=== PATIENT | female | born 1955 | race Caucasian/White ===

== ENCOUNTER 2019-02-26 19:09 | Emergency (ER) | payer OTHER, SELFPAY ==
[2019-02-26 19:19] VITALS: BP 156/67; PULSE 86; RESP 18; O2SAT 98; BMI 40.9
[2019-02-26 19:37] VITALS: BP 156/67; PULSE 86; RESP 18; TEMP 36.3; O2SAT 98; BMI 40.9
--- NOTE | 2019-02-26 19:41 | HMH.EDUTC ---
[facility] [place] Clinical Impression: Wrist pain Qualifiers: Laterality: right Qualified Code(s): M25.531 - Pain in right wrist Disposition: Home, Self-Care Condition on Discharge: Good Instructions: DI for Wrist Pain Additional Instructions: RICE--Rest the extremity, Apply Ice as tolerated for 15 minutes three or four times per day, Elevate the extremity while you are resting Take the steroids as directed. Follow up with your regular doctor. GO TO THE ER FOR ANY WORSENING SYMPTOMS Prescriptions: predniSONE [Deltasone 20mg tablet] 20 mg PO BID 4 Days #8 tab Referrals: Lucretia Bee [Primary Care Provider] - Time of Disposition: 20:16 Medical Decision Making - Medical Records Medical records reviewed: Yes: I reviewed the patient's medical records. - Lc Inquiry Pt receiving controlled substance: No Lc was queried for this patient: No Vital Signs: 02/26/19 19:19 02/26/19 19:37 02/26/19 20:20 Temperature 97.3 F L 97.3 F L Temperature Source Oral Oral Pulse Rate 86 Pulse Rate [Left Brachial] 86 86 Respiratory Rate 18 18 18 Blood Pressure 156/67 H Blood Pressure [Left Arm] 156/67 H 156/67 H Blood Pressure Mean [Left Arm] 96 96 Blood Pressure Source Automatic Cuff Blood Pressure Source [Left Arm] Automatic Cuff Automatic Cuff Blood Pressure Position Sitting Blood Pressure Position [Left Arm] Sitting Sitting 02 Sat by Pulse Oximetry 98 98 Oxygen Delivery Method Room Air Room Air Room Air [facility] [place] - General Stated complaint: R hand pain Time Seen by Provider: 02/26/19 19:25 Mode of Arrival: Family Vehicle Source of Information: Patient Limitations: No Limitations Description of Symptoms (Recalled from Triage Doc. by RN): C/O RIGHT HAND PAIN AND SWELLING WITH NO KNOWN INJURY HEENT Symptoms (Recalled from RN notes): No Resp Symptoms (Recalled from RN notes): No Skin Symptoms (Recalled from RN notes): No MS Symptoms (Recalled from RN notes): Yes Functional Status (Recalled from RN notes): N/A - Related Data Home Medications Medication Instructions Recorded Confirmed Levocetirizine Dihydrochloride 5 mg PO DAILY 02/26/19 02/26/19 Montelukast Sodium [Singulair 10mg 10 mg PO PM 02/26/19 02/26/19 tablet] Omeprazole [Omeprazole 40mg 40 mg PO DAILY 02/26/19 02/26/19 Capsule] clonazePAM [Clonazepam] 0.5 mg PO DAILY 02/26/19 02/26/19 hydroCHLOROthiazide [HCTZ 25mg 25 mg PO DAILY 02/26/19 02/26/19 tab] Previous Rx's Medication Instructions Recorded predniSONE [Deltasone 20mg 20 mg PO BID 4 Days #8 tab 02/26/19 tablet] Allergies Allergy/AdvReac Type Severity Reaction Status Date / Time amoxicillin [From TRIMOX] Allergy Unknown Verified 02/26/19 19:41 Penicillins [PENICILLINS] Allergy Unknown Verified 02/26/19 19:41 - Worker's Comp Is this a Worker's Comp case?: No [facility] History - Hepatitis A Screen Drug use history?: No High risk sexual behaviors?: No History of sexually transmitted infection?: No Currently employed?: No Childcare worker?: No Do you have indoor plumbing?: Yes Do you have electricity?: Yes Attestation statement:: This patient has been screened for Hepatitis A risk factors. I have reviewed the patient's past medical history: Yes Laterality Cases: Bilateral: Tonsillectomy - Social History Alcohol Intake: never Occupational Status: other - Psychiatric History Expresses thoughts of harming self/others: None Suicide Plan Description: No Plan ROS Obtained: Yes All systems reviewed & no additional complaints - Constitutional Constitutional: Denies chills, Denies fever(s) - ENT Ears, Nose, Mouth, and Throat: Reports as per HPI - Cardiovascular Cardiovascular: Denies chest pain - Respiratory Respiratory: No chest congestion, No cough - Integumentary/Breasts Skin/Breast: Reports as per HPI Physical Exam - General General appearance: alert, in no apparent distress - Head Head
--- NOTE | 2019-02-26 19:44 | XR_ITS ---
XR wrist RT 2V HISTORY ITS.REASON: wrist pain and swelling. ORDERING PHYSICIAN: Eddi Bryant APRN PATIENT AGE: 63 years Comparison: None FINDINGS: No fracture or dislocation. No lytic or blastic change. There is normal mineralization.. The joint spaces are well-preserved. No significant degenerative/arthritic changes. No erosive changes evident.. Minimal chondrocalcinosis of the triangular fibrocartilage noted IMPRESSION: No acute finding
--- NOTE | 2019-02-26 19:45 | ED_ITS ---
[facility] – [place] Clinical Impression: Wrist pain Qualifiers: Laterality: right Qualified Code(s): M25.531 - Pain in right wrist Disposition: Home, Self-Care Condition on Discharge: Good Instructions: DI for Wrist Pain Additional Instructions: RICE--Rest the extremity, Apply Ice as tolerated for 15 minutes three or four times per day, Elevate the extremity while you are resting Take the steroids as directed. Follow up with your regular doctor. GO TO THE ER FOR ANY WORSENING SYMPTOMS Prescriptions: predniSONE [Deltasone 20mg tablet] 20 mg PO BID 4 Days #8 tab Referrals: Lucretia Bee [Primary Care Provider] - Time of Disposition: 20:16 Medical Decision Making - Medical Records Medical records reviewed: Yes: I reviewed the patient's medical records. - Lc Inquiry Pt receiving controlled substance: No Lc was queried for this patient: No Vital Signs: 02/26/19 19:19 02/26/19 19:37 02/26/19 20:20 Temperature 97.3 F L 97.3 F L Temperature Source Oral Oral Pulse Rate 86 Pulse Rate [Left Brachial] 86 86 Respiratory Rate 18 18 18 Blood Pressure 156/67 H Blood Pressure [Left Arm] 156/67 H 156/67 H Blood Pressure Mean [Left Arm] 96 96 Blood Pressure Source Automatic Cuff Blood Pressure Source [Left Arm] Automatic Cuff Automatic Cuff Blood Pressure Position Sitting Blood Pressure Position [Left Arm] Sitting Sitting 02 Sat by Pulse Oximetry 98 98 Oxygen Delivery Method Room Air Room Air Room Air [facility] [place] HPI - General Stated complaint: R hand pain Time Seen by Provider: 02/26/19 19:25 Mode of Arrival: Family Vehicle Source of Information: Patient Limitations: No Limitations Description of Symptoms (Recalled from Triage Doc. by RN): C/O RIGHT HAND PAIN AND SWELLING WITH NO KNOWN INJURY HEENT Symptoms (Recalled from RN notes): No Resp Symptoms (Recalled from RN notes): No Skin Symptoms (Recalled from RN notes): No MS Symptoms (Recalled from RN notes): Yes Functional Status (Recalled from RN notes): N/A - Related Data Home Medications Medication Instructions Recorded Confirmed Levocetirizine Dihydrochloride 5 mg PO DAILY 02/26/19 02/26/19 Montelukast Sodium [Singulair 10mg 10 mg PO PM 02/26/19 02/26/19 tablet] Omeprazole [Omeprazole 40mg 40 mg PO DAILY 02/26/19 02/26/19 Capsule] clonazePAM [Clonazepam] 0.5 mg PO DAILY 02/26/19 02/26/19 hydroCHLOROthiazide [HCTZ 25mg 25 mg PO DAILY 02/26/19 02/26/19 tab] Previous Rx's Medication Instructions Recorded predniSONE [Deltasone 20mg 20 mg PO BID 4 Days #8 tab 02/26/19 tablet] Allergies Allergy/AdvReac Type Severity Reaction Status Date / Time amoxicillin [From TRIMOX] Allergy Unknown Verified 02/26/19 19:41 Penicillins [PENICILLINS] Allergy Unknown Verified 02/26/19 19:41 - Worker's Comp Is this a Worker's Comp case?: No [facility] History - Hepatitis A Screen Drug use history?: No High risk sexual behaviors?: No History of sexually transmitted infection?: No Currently employed?: No Childcare worker?: No Do you have indoor plumbing?: Yes Do you have electricit
[2019-02-26 20:20] VITALS: BP 156/67; PULSE 86; RESP 18; TEMP 36.3; O2SAT 98
== END 2019-02-26 20:22 | disposition home or self-care (01) ==
PROVIDERS: Emergency Provider Nurse Practitioner Family; PCP Family Medicine Addiction Medicine
DX: M25.531 Pain in right wrist (principal); Z88.0 Allergy status to penicillin
CPT/HCPCS: 73100; 99201

== ENCOUNTER → 2021-08-20 11:55 | Outpatient (CLI) | payer MEDICARE, SELFPAY | PROVIDERS: Visit Provider Ophthalmology | DX: Z01.812 Encounter for preprocedural laboratory examination (principal); Z11.52 Encounter for screening for COVID-19 | CPT/HCPCS: C9803; U0003; U0005 ==

== ENCOUNTER 2021-08-21 08:51 | Day surgery (SDC) | payer MEDICARE, SELFPAY ==
[2021-08-20 11:19] VITALS: BMI 45.3
[2021-08-21 09:15] VITALS: BP 136/65; PULSE 69; RESP 18; TEMP 36.6; O2SAT 98
[2021-08-21 10:42] VITALS: BP 132/68; PULSE 63; RESP 18; O2SAT 99
[2021-08-21 10:47] VITALS: BP 135/74; PULSE 61; RESP 18; O2SAT 100
[2021-08-21 10:52] VITALS: BP 143/79; PULSE 62; RESP 18; O2SAT 100
[2021-08-21 10:57] VITALS: BP 141/75; PULSE 64; RESP 18; O2SAT 100
[2021-08-21 11:10] VITALS: BP 153/75; PULSE 63; RESP 18; TEMP 36.1; O2SAT 98
== END 2021-08-21 11:10 | disposition home or self-care (01) ==
LOC: OR 08:53
PROVIDERS: PCP Family Medicine; Visit Provider Ophthalmology
DX: H25.813 Combined forms of age-related cataract, bilateral (principal); H53.149 Visual discomfort, unspecified; H02.831 Dermatochalasis of right upper eyelid; H02.834 Dermatochalasis of left upper eyelid; M19.90 Unspecified osteoarthritis, unspecified site; K21.9 Gastro-esophageal reflux disease without esophagitis; Z87.891 Personal history of nicotine dependence; Z88.0 Allergy status to penicillin; Z88.1 Allergy status to other antibiotic agents
CPT/HCPCS: 66984; V2632

== ENCOUNTER → 2021-09-03 11:02 | Outpatient (CLI) | payer MEDICARE, SELFPAY | PROVIDERS: Visit Provider Ophthalmology | DX: Z01.812 Encounter for preprocedural laboratory examination (principal); Z11.52 Encounter for screening for COVID-19 | CPT/HCPCS: C9803; U0003; U0005 ==

== ENCOUNTER 2021-09-04 09:43 | Day surgery (SDC) | payer MEDICARE, SELFPAY ==
[2021-08-31 14:27] VITALS: BMI 44.1
[2021-09-04 11:10] VITALS: BP 147/79; PULSE 66; RESP 18; TEMP 36.3; O2SAT 97
[2021-09-04 12:40] VITALS: BP 134/71; PULSE 57; RESP 16; O2SAT 98
[2021-09-04 12:45] VITALS: BP 142/71; PULSE 56; RESP 16; O2SAT 100
[2021-09-04 12:50] VITALS: BP 140/74; PULSE 55; RESP 16; O2SAT 99
[2021-09-04 12:53] VITALS: BP 137/73; PULSE 58; RESP 16; O2SAT 99
[2021-09-04 12:55] VITALS: BP 151/96; PULSE 66; RESP 16; TEMP 36.7; O2SAT 97
== END 2021-09-04 13:05 | disposition home or self-care (01) ==
LOC: OR 09:45
PROVIDERS: PCP Family Medicine; Visit Provider Ophthalmology
DX: H25.813 Combined forms of age-related cataract, bilateral (principal); H53.149 Visual discomfort, unspecified; H02.831 Dermatochalasis of right upper eyelid; H02.834 Dermatochalasis of left upper eyelid; E78.5 Hyperlipidemia, unspecified; Z88.0 Allergy status to penicillin; Z88.1 Allergy status to other antibiotic agents; Z79.82 Long term (current) use of aspirin; Z79.899 Other long term (current) drug therapy
CPT/HCPCS: 66984; V2632

== ENCOUNTER 2021-09-10 17:49 | Emergency (ER) | payer MEDICARE, SELFPAY ==
--- NOTE | 2021-09-10 18:20 | XR_ITS ---
PROCEDURE INFORMATION: Exam: XR Chest Exam date and time: 09/10/2021 6:20 PM Age: 65 years old Clinical indication: Chest wall pain; Patient HX: Right sided posterior back pain TECHNIQUE: Imaging protocol: XR of the chest. Views: 2 views. COMPARISON: CR CXR CHEST(2 VIEWS-NOT PORTABLE) 10/22/2016 11:16 AM FINDINGS: Lungs: Faint nodular opacity projects over the mid right lung measuring 1.8 cm. No consolidation. Pleural spaces: Unremarkable. No pleural effusion. No pneumothorax. Heart/Mediastinum: Unremarkable. No cardiomegaly. Bones/joints: Unremarkable. IMPRESSION: Faint right lung nodular opacity. Recommend further evaluation with chest CT.
[2021-09-10 18:34] VITALS: BP 158/86; PULSE 95; RESP 18; TEMP 37.2; O2SAT 96; BMI 44.4
--- NOTE | 2021-09-10 19:11 | HMH.EDUTC ---
[facility] [place] Clinical Impression: Pain aggravated by coughing and deep breathing Disposition: Home, Self-Care Condition on Discharge: Good Instructions: DI for Shoulder Pain, DI for Muscle Spasm Additional Instructions: You need to call your Family Doctor tomorrow and make appointment the Radiologist that viewed your Xray and recommended further evaluation and a CT of your chest Your Family Doctor can request the records from your visit today Continue taking previously prescribed medications for pain Straight to ER if any life threatening symptoms Referrals: Marcos Nava JR, MD [Primary Care Provider] - (Call tomorrow and get appointment for further evaluation and discuss CT of chest) Time of Disposition: 19:30 Medical Decision Making - Lc Inquiry Pt receiving controlled substance: No Lc was queried for this patient: No Vital Signs: 09/10/21 18:34 Temperature 98.9 F Temperature Source Oral Pulse Rate [Left] 95 H Respiratory Rate 18 Blood Pressure [Right Arm] 158/86 H Blood Pressure Mean [Right Arm] 110 02 Sat by Pulse Oximetry 96 - Radiology Data #1 Image(s): Chest Image Reviewed: Yes I have reviewed radiologist's interpretation IMPRESSION: Faint right lung nodular opacity. Recommend further evaluation with chest CT. Medical Decision Narrative: Patient was discussed with ED physician and patient agreed to call PCP in am and follow up for CT of chest by her PCP and further treatment [facility] [place] HPI - General Stated complaint: R shoulder pain, painful breathing Time Seen by Provider: 09/10/21 19:11 Mode of Arrival: Ambulatory Source of Information: Patient Limitations: No Limitations Description of Symptoms (Recalled from Triage Doc. by RN): pt states she is having R shoulder pain that hurts when breathing. pt states she has seen her pcp and they tx her but the meds are not helping. HEENT Symptoms (Recalled from RN notes): No Resp Symptoms (Recalled from RN notes): No Skin Symptoms (Recalled from RN notes): No MS Symptoms (Recalled from RN notes): Yes (R shoulder pain with breathing) Functional Status (Recalled from RN notes): na - History of Present Illness Provider Complaint: Patient states that she has been having pain in her right shoulder blade area States that pain is worse she takes a deep breath State that she went to see PCP and he was out so she saw someone at the urgent care there and they treated her for muscle spasm States that she was still hurting on and off now and wanted to come in and get checked State that they didnt do CXR there and wanted to make sure she didnt have pneumonia - Related Data Home Medications Medication Instructions Recorded Confirmed Omeprazole [Omeprazole 40mg 40 mg PO DAILY 02/26/19 09/04/21 Capsule] clonazePAM [Clonazepam] 0.5 mg PO BID 02/26/19 09/04/21 hydroCHLOROthiazide [HCTZ 25mg 25 mg PO DAILY 02/26/19 09/04/21 tab] Aspirin [Aspirin 81mg EC Tab] 81 mg PO DAILY 08/20/21 09/04/21 Atorvastatin Calcium [Lipitor 20mg 20 mg PO HS 08/20/21 09/04/21 Tab] Potassium Chloride 10 meq PO BID 08/20/21 09/04/21 predniSONE [Deltasone 20mg 10 mg PO DAILY 09/04/21 09/04/21 tablet] Allergies Allergy/AdvReac Type Severity Reaction Status Date / Time amoxicillin [From TRIMOX] Allergy Unknown Verified 09/04/21 11:07 Penicillins [PENICILLINS] Allergy Unknown Verified 09/04/21 11:07 - Worker's Comp Is this a Worker's Comp case?: No [facility] History - Hepatitis A Screen Drug use history?: No High risk sexual behaviors?: No History of sexually transmitted infection?: No Currently employed?: No Childcare worker?: No Do you have indoor plumbing?: Yes Do you have electricity?: Yes Attestation statement:: This patient has been screened for Hepatitis A risk factors. I have reviewed the patient's past medical history: Yes Medical History: Reports:: Hyperlipidemia, Hypertension Denies:: Cancer, Diabetes Mellit
[2021-09-10 19:35] VITALS: BP 158/86; PULSE 95; RESP 18; TEMP 37.2
== END 2021-09-10 19:36 | disposition home or self-care (01) ==
PROVIDERS: Emergency Provider Nurse Practitioner; PCP Family Medicine
DX: R05.1 Acute cough (principal); M25.511 Pain in right shoulder; I10 Essential (primary) hypertension; E78.5 Hyperlipidemia, unspecified
CPT/HCPCS: G0463; 71046; 99202

== ENCOUNTER → 2021-11-13 10:38 | Outpatient (CLI) | payer MEDICARE, SELFPAY | PROVIDERS: Visit Provider Nurse Practitioner | DX: Z20.822 Contact with and (suspected) exposure to COVID-19 (principal) | CPT/HCPCS: C9803; U0003; U0005 ==

== ENCOUNTER → 2022-04-30 12:49 | Outpatient (CLI) | payer MEDICARE, SELFPAY ==
--- NOTE | 2022-04-30 12:50 | US_ITS ---
FINAL REPORT CLINICAL HISTORY: fatigue; obesity FINDINGS: Sonographic images of the thyroid were obtained. The right lobe of the thyroid measures 1.7 x 3.7 x 1.5 cm. The left lobe of the thyroid measures 1.7 x 3.9 x 1.6 cm. There is decreased blood flow. Two nodules are seen on the left. The 1st nodule is solid and hypoechoic measuring 9 x 6 x 6 mm consistent with TI-RADS category 4. The 2nd nodule is solid and isoechoic measuring 12 x 9 x 7 mm consistent with TI-RADS category 3. IMPRESSION: Two small left thyroid lobe nodules. No follow-up is required. Reviewed, Interpreted and Dictated by Feliz Allen III, MD Transcribed by Jessie Romero Authenticated and [facility]
[2022-04-30 14:49] LABS: Free T4 (Free Thyroxine) 0.74 ng/dl (0.78-2.19)
== END ==
PROVIDERS: PCP Family Medicine; Visit Provider Otolaryngology
DX: E66.01 Morbid (severe) obesity due to excess calories (principal); R53.83 Other fatigue; Z68.41 Body mass index [BMI] 40.0-44.9, adult
CPT/HCPCS: 36415; 76536; 84439; 84443

== ENCOUNTER 2022-11-05 08:13 | Day surgery (SDC) | payer MEDICARE, SELFPAY ==
[2022-11-05 09:00] VITALS: BP 142/86; PULSE 81; RESP 16; TEMP 36.6; O2SAT 94
[2022-11-05 10:37] VITALS: BP 142/86; PULSE 81; RESP 16; TEMP 36.6; O2SAT 94
== END 2022-11-05 10:37 | disposition home or self-care (01) ==
LOC: OUTP 08:14
PROVIDERS: PCP Family Medicine; Visit Provider Ophthalmology
PROC: (CPT 66821; principal; 2022-11-05 09:30)
DX: H26.491 Other secondary cataract, right eye (principal)
CPT/HCPCS: 66821

== ENCOUNTER → 2022-12-09 12:46 | Outpatient (POV) | payer MEDICARE, SELFPAY ==
[2022-12-09 13:25] VITALS: BP 123/94; PULSE 78; RESP 18; O2SAT 97; BMI 45.3
--- NOTE | 2022-12-09 13:26 | EXP.PAIN.OV ---
HPI Data of Consult Patient: new to practice Consult date: 12/09/22 Requesting Physician: Suzi Renee APRN Primary Care Provider: Ambika Sanchez MD Consult Narrative Reason for consult: Low back pain, right hip pain, bilateral leg pain History of present illness: Ms. Garibay is a 67 year old female who presents today as a new patient. She is a referral from Marisol Pratt's office. Today she rates her pain an 8 out of 10. Patient states her pain is all in her low back with radiating symptoms to her right hip and bilateral lower extremities. Patient states this has been going on for years and progressively worsened over time. Patient does state that she had a cervical fusion and lumbar fusion back in 2019. Patient states these may have helped some however she continued to have significant pain. Patient was previously a pain management client with Dr. Mock in [place]. Patient states she had multiple injections however these did not provide significant improvement and that they did want to do a pain pump. Patient states it was at that point that she did go to a neurosurgeon and did the back surgeries. Patient does describe her pain as a constant aching, throbbing sensation that is worse with increased activity and also describes burning in her bilateral lower extremities. Patient does have color changes to her left leg as well it is frequently colder than her right. Patient has tried [id number] Tylenol and ibuprofen as well as topical creams with no additional improvement. Patient has used heat and ice and then at home TENS unit. Patient does state the pain does interfere with her ability to perform activities of daily living such as cooking and cleaning. Patient states she frequently has to take multiple breaks due to her pain symptoms. Patient denies any new or updated imaging. Patient is currently prescribed clonazepam 0.5 mg twice a day from her neurologist. Patient denies any side effects from this medication. Her Lc is [id number]. Its been reviewed and appropriate. CC: Suzi Renee APRN [facility] Disclaimer: The information contained in this section may have been updated after the patient was seen, as this information can be updated by other users. Medical History (Updated 12/09/22 @ 13:32 by Suzi Renee APRN) Edema History of back pain Osteoarthritis Family History Other No significant family history Social History (Updated 12/09/22 @ 13:31 by Rhonda Davey RN) Smoking Status: Never smoker second hand exposure: No alcohol intake: never current occupational status: retired Travel in the last 8 weeks: None household members: spouse housing: house current occupational exposures/hazards: No caffeine: No Review of Systems Review of Systems Review of systems:: pertinent systems reviewed and negative unless documented below Review of systems (narrative): Review of Systems: General: No recent weight changes, no fever, no sleep disturbances Respiratory: No cough, no shortness of air, no recurring pulmonary infections Cardiovascular/peripheral vascular: No chest pain, no palpitations, no edema, no shortness of breath Gastrointestinal: No new onset incontinence, normal bowel movements reported Genitourinary: No new onset incontinence Musculoskeletal: Low back pain, right hip pain, bilateral leg pain Psychiatric: [Normal mood/affect] Neurological: [Denies weakness in extremities], [denies balance issues] Meds Home Medications and Allergies Home Medications Medication Instructions Recorded Confirmed Type clonazepam 0.5 mg tablet 0.5 mg PO BID NERVE TICK 02/26/19 12/09/22 History hydrochlorothiazide 25 mg tablet 25 mg PO DAILY HTN 02/26/19 12/09/22 History omeprazole 40 mg capsule,delayed 40 mg PO DAILY GERD 02/26/19 12/09/22 History release aspirin 81 mg tablet,delayed 81 mg PO DAILY heart healthy 08/20/21 12/09/22
== END | disposition home or self-care (01) ==
PROVIDERS: PCP Family Medicine; Visit Provider Nurse Practitioner Family
DX: M51.16 Intervertebral disc disorders with radiculopathy, lumbar region (principal); M54.50 Low back pain, unspecified; M79.604 Pain in right leg; M25.551 Pain in right hip; Z98.1 Arthrodesis status
CPT/HCPCS: 72110; 99202; G0463

== ENCOUNTER → 2022-12-09 13:29 | Outpatient (CLI) | payer MEDICARE, SELFPAY ==
--- NOTE | 2022-12-09 13:37 | XR_ITS ---
FINAL REPORT CLINICAL HISTORY: LBP..surgery back in 2019..no trauma FINDINGS: AP, lateral, and oblique views of the lumbar spine were obtained. There are postoperative changes from posterior fusion of L4-5. Hardware is intact. The alignment is normal. There is no acute fracture identified. Vertebral body height is preserved. There is multilevel degenerative disc disease, most pronounced at L3-4. An oval radiodensity in the left upper abdomen could be ingested. IMPRESSION: Postoperative and degenerative changes as above with no acute fracture identified. Reviewed, Interpreted and Dictated by Melissa Wynne MD Transcribed by Adelia Mayberry Authenticated and [facility]
== END ==
LOC: LAB 13:30 → RAD 13:31
PROVIDERS: PCP Family Medicine; Visit Provider Nurse Practitioner Family
DX: M54.50 Low back pain, unspecified (principal)
CPT/HCPCS: 72110; 99202; G0463

== ENCOUNTER → 2022-12-26 10:33 | Outpatient (POV) | payer MEDICARE, SELFPAY ==
--- NOTE | 2022-12-26 10:44 | EXP.PAIN.SOA ---
[facility] Pain Management SOAP Note Subjective:: Patient is a pleasant 67-year-old female who presents today for follow-up. We are currently treating the patient for degenerative disc disease of lumbar spine with lumbar radiculopathy symptoms, status post lumbar fusion, right hip pain, low back pain. Today she rates her pain a 7 out of 10. Patient denies any new trauma or injury. Patient denies any change location or type of pain she experiences. She states her pain continues to be a burning, aching and throbbing sensation that is constant however aggravated with increased activity. Patient does have significant trouble with her legs with temperature and color changes as well as edema. She states at today's visit that she is waiting for a referral from a glaze wiper very [place] Dr. Cobian for evaluation of her ankle swelling. Patient states the tizanidine we prescribed at her last visit did cause significant headache and dry mouth and she is discontinued this use. Patient states she has also started water therapy which does help however she states she has noticed significant ankle pain when she goes to this. Patient was previously a pain management client with Dr. Mock and had multiple injections however they did not provide significant relief. Patient was sent to a neurosurgeon who did do her back surgeries. Patient does states she continues to use [id number] Tylenol and ibuprofen however only gets minimal relief. She does use a TENS unit and heat and ice at home. Patient is currently managed with clonazepam 0.5 mg from Franny Quiroga's office and compounding cream. She states the cream does provide additional relief. Her Lc is [id number]. Its been reviewed and appropriate. Review of Systems: General: No recent weight changes, no fever, no sleep disturbances Respiratory: No cough, no shortness of air, no recurring pulmonary infections Cardiovascular/peripheral vascular: No chest pain, no palpitations, no edema, no shortness of breath Gastrointestinal: No new onset incontinence, normal bowel movements reported Genitourinary: No new onset incontinence Musculoskeletal: Low back pain Psychiatric: [Normal mood/affect] Neurological: [Denies weakness in extremities], [denies balance issues] Objective:: Physical Exam: General: Alert and oriented x3, no acute distress, pleasant and cooperative Lungs: Respirations even and unlabored, symmetrical chest expansion Eyes: PERRL Musculoskeletal: Flexion and extension of lumbar [spine] somewhat guarded secondary to pain, [antalgic gait noted] Neurological: Speech clear, no gross sensory deficit FINAL REPORT CLINICAL HISTORY: LBP..surgery back in 2019..no trauma FINDINGS: AP, lateral, and oblique views of the lumbar spine were obtained.? There are postoperative changes from posterior fusion of L4-5.? Hardware is intact.? The alignment is normal.? There is no acute fracture identified.? Vertebral body height is preserved.? There is multilevel degenerative disc disease, most pronounced at L3-4.? An oval radiodensity in the left upper abdomen could be ingested. IMPRESSION: Postoperative and degenerative changes as above with no acute fracture identified. Reviewed, Interpreted and Dictated by Melissa Wynne MD Transcribed by Adelia Mayberry Authenticated and [facility] [place] Assessment:: Degenerative disc disease of lumbar spine with lumbar radiculopathy symptoms, status post lumbar fusion, right hip pain, low back pain, ankle pain Plan:: Patient continues to experience significant pain in her low back with radiating symptoms and limited range of motion. Patient's x-ray did show multilevel degenerative disc disease most pronounced at L3-L4 and postoperative changes from her posterior fusion at L4-L5. I have discussed with the patient regarding ordering additional advanced imaging and she agrees with this plan of care. I will order
[2022-12-26 11:01] VITALS: BP 131/56; PULSE 69; RESP 18; O2SAT 97; BMI 45.5
== END | disposition home or self-care (01) ==
PROVIDERS: PCP Family Medicine; Visit Provider Nurse Practitioner Family
DX: M51.16 Intervertebral disc disorders with radiculopathy, lumbar region (principal); Z98.1 Arthrodesis status; M25.551 Pain in right hip; M25.579 Pain in unspecified ankle and joints of unspecified foot
CPT/HCPCS: 99212; G0463

== ENCOUNTER → 2023-01-09 13:33 | Outpatient (CLI) | payer MEDICARE, SELFPAY ==
--- NOTE | 2023-01-09 13:38 | CT_ITS ---
FINAL REPORT TECHNIQUE: Axial imaging of the lumbar spine was obtained without contrast. Sagittal and coronal reformatted images were also obtained and reviewed. This study was performed with techniques to keep radiation doses as low as reasonably achievable (ALARA). Individualized dose reduction techniques using automated exposure control or adjustment of mA and/or kV according to the patient's size were employed. CLINICAL HISTORY: LOWER BACK PAIN COMPARISON: none FINDINGS: Status post fusion at L4-5. There is no fracture. Mild anterolisthesis of L4-5.. There is multilevel mild degenerative change. T12-L1: No evidence of central canal stenosis or neural foraminal narrowing. L1-L2: Annular disc bulge and facet arthropathy. Moderate bilateral neural foraminal narrowing. L2-L3: Annular disc bulge and facet arthropathy. Moderate bilateral neural foraminal narrowing. L3-L4: Annular disc bulge, facet arthropathy, and osteophytes. Moderate right and severe left neural foraminal narrowing. L4-L5: Fusion. Moderate bilateral neural foraminal narrowing. L5-S1: Annular disc bulge and facet arthropathy. Mild bilateral neural foraminal narrowing. IMPRESSION: Multilevel degenerative change, most pronounced at L3-4. Reviewed, Interpreted and Dictated by Feliz Allen III, MD Transcribed by Julienne Bee Authenticated and [facility]
== END ==
LOC: RAD 13:34
PROVIDERS: PCP Family Medicine; Visit Provider Nurse Practitioner Family
DX: M54.50 Low back pain, unspecified (principal)
CPT/HCPCS: 72131

== ENCOUNTER → 2023-01-22 11:08 | Outpatient (POV) | payer MEDICARE, SELFPAY ==
[2023-01-22 11:39] VITALS: BP 144/75; PULSE 79; RESP 18; O2SAT 98; BMI 46.0
--- NOTE | 2023-01-22 11:55 | EXP.PAIN.SOA ---
[facility] Pain Management SOAP Note Subjective:: Patient is a pleasant 67-year-old female who presents today for follow-up of CT of her lumbar spine without contrast. We are currently treating the patient for low back pain with lumbar radiculopathy symptoms, right hip pain. Today she rates her pain a 8 out of 10. Patient denies any new trauma or injury. Patient denies any change location or type of pain she experiences. She does state this is a burning, aching, throbbing sensation that is worse with increased activity. Patient cannot tolerate prolonged activity such as sitting, standing, walking. Patient is unable to do activities of daily living such as cooking and cleaning due to her worsening pain symptoms. Patient has had multiple injections in the past with minimal improvements. Patient does have a history of cervical fusion and lumbar fusion.? Patient has used [id number] medications such as Tylenol and ibuprofen along with heat and ice and then at home TENS unit with minimal relief.? At our last visit we did order her compounding cream and baclofen and 5 mg twice a day. Patient states that she has noticed some improvement with the cream however she has not really noticed any additional benefit from the baclofen. Patient is currently prescribed clonazepam 0.5 mg twice a day from her neurologist.? Patient denies any side effects from this medication.? She does state that she has been experiencing some swelling into her legs and that she is being checked out by cardiology. She states that she is scheduled for an echocardiogram on January 24 at [place]. Her Lc is [id number].? Its been reviewed and appropriate. Review of Systems: General: No recent weight changes, no fever, no sleep disturbances Respiratory: No cough, no shortness of air, no recurring pulmonary infections Cardiovascular/peripheral vascular: No chest pain, no palpitations, no edema, no shortness of breath Gastrointestinal: No new onset incontinence, normal bowel movements reported Genitourinary: No new onset incontinence Musculoskeletal: Low back pain Psychiatric: [Normal mood/affect] Neurological: [Denies weakness in extremities], [denies balance issues] Objective:: Physical Exam: General: Alert and oriented x3, no acute distress, pleasant and cooperative Lungs: Respirations even and unlabored, symmetrical chest expansion Eyes: PERRL Musculoskeletal: Flexion and extension of lumbar [spine] somewhat guarded secondary to pain, [antalgic gait noted] Neurological: Speech clear, no gross sensory deficit FINAL REPORT TECHNIQUE: Axial imaging of the lumbar spine was obtained without contrast. Sagittal and coronal reformatted images were also obtained and reviewed.? This study was performed with techniques to keep radiation doses as low as reasonably achievable (ALARA). Individualized dose reduction techniques using automated exposure control or adjustment of mA and/or kV according to the patient's size were employed. CLINICAL HISTORY: LOWER BACK PAIN COMPARISON: none FINDINGS: Status post fusion at L4-5.? There is no fracture.? Mild anterolisthesis of L4-5..? There is multilevel mild degenerative change. ? ? T12-L1:? No evidence of central canal stenosis or neural foraminal narrowing.? ? ? L1-L2:? Annular disc bulge and facet arthropathy.? Moderate bilateral neural foraminal narrowing. ? ? L2-L3:? Annular disc bulge and facet arthropathy. Moderate bilateral neural foraminal narrowing.? ? ? L3-L4: Annular disc bulge, facet arthropathy, and osteophytes. Moderate right and severe left neural foraminal narrowing. L4-L5:? Fusion.? Moderate bilateral neural foraminal narrowing. L5-S1:? Annular disc bulge and facet arthropathy.? Mild bilateral neural foraminal narrowing. IMPRESSION: Multilevel degenerative change, most pronounced at L3-4. Reviewed, Interpreted and Dictated by Feliz Allen III, MD Transcribed by Julienne Bee Authenticated and Electronically Signed by Fredy
== END | disposition home or self-care (01) ==
PROVIDERS: PCP Family Medicine; Visit Provider Nurse Practitioner Family
DX: M51.16 Intervertebral disc disorders with radiculopathy, lumbar region (principal); M47.26 Other spondylosis with radiculopathy, lumbar region
CPT/HCPCS: 99212; G0463

== ENCOUNTER → 2023-02-25 09:13 | Outpatient (CLI) | payer MEDICARE, SELFPAY ==
--- NOTE | 2023-02-25 09:17 | XR_ITS ---
FINAL REPORT CLINICAL HISTORY: . post menopausal FINDINGS: Using the distal 1/3 of the left forearm, the bone mineral density of the forearm is 0.770 g/cm2, corresponding to T-score of 1.3. Using the left hip, the bone mineral density of the femoral neck is 0.785 g/cm2, corresponding to a T-score of -0.6. Using the right hip: The bone mineral density of the femoral neck is 0.834 g/cm2, corresponding to a T-score of -0.1. IMPRESSION: Normal bone mineral density of the left forearm and hips. NOTE: T-score: Standard deviation compared with peak bone mass of young adult mean. *Following the recommendations of the International Society of Bone densitometry, classification of hip BMD is based on the lower of two T-scores; total hip or femoral neck. Reviewed, Interpreted and Dictated by Edgardo Valencia MD Transcribed by Melissa Zepeda Authenticated and [facility]
== END ==
PROVIDERS: PCP Family Medicine; Visit Provider Nurse Practitioner Family
DX: Z13.820 Encounter for screening for osteoporosis (principal); Z78.0 Asymptomatic menopausal state
CPT/HCPCS: 77080

== ENCOUNTER → 2023-04-02 13:00 | Outpatient (CLI) | payer MEDICARE, SELFPAY ==
--- NOTE | 2023-04-02 13:00 | US_ITS ---
FINAL REPORT CLINICAL HISTORY: hx thyroidism COMPARISON: 04/30/2022 FINDINGS: Ultrasound examination of the thyroid gland: The thyroid gland has a heterogeneous texture overall. It is normal in size. The right lobe of the thyroid gland measures 4.5 x 2 x 1.8 cm in size. The left lobe of the thyroid gland measures 4 x 2.1 x 1.6 cm in size. The isthmus measures 0.3 cm in thickness. There are 2 nodules identified in the left lobe of the thyroid. The smaller nodule measures 0.9 x 0.7 x 0.7 cm and is hypoechoic. The 2nd nodule measures 0.8 x 0.95 x 1.1 cm and is isoechoic. Given differences in technique, these nodules are not significantly changed since the prior ultrasound of April 2022. IMPRESSION: Heterogeneous thyroid gland, normal in size. Two TI-RADS 4 nodules present in the left lobe of the thyroid gland. Given their size and appearance would recommend a 12 month follow-up ultrasound. Reviewed, Interpreted and Dictated by Denis Higgins MD Transcribed by Jes Bolden Authenticated and [facility]
[2023-04-02 14:41] LABS: Free T4 (Free Thyroxine) 0.85 ng/dl (0.78-2.19)
[2023-04-02 17:48] LABS: Thyroid Stimulating Hormone 2.03 uIU/mL (0.465-4.68)
== END ==
PROVIDERS: PCP Family Medicine; Visit Provider Otolaryngology
DX: E03.9 Hypothyroidism, unspecified (principal)
CPT/HCPCS: 36415; 76536; 84439; 84443

== ENCOUNTER 2023-04-04 09:53 | Day surgery (SDC) | payer MEDICARE, SELFPAY ==
[2023-04-04] VITALS (8 sets, daily range): BP systolic 104–140; BP diastolic 58–75; PULSE 51–76; RESP 18; TEMP 36.6–36.7; O2SAT 94–98; BMI 45.8
--- NOTE | 2023-04-04 14:38 | P.PCN_ITS ---
Procedure Date: 04/04/23 Time: 14:38 Anesthesiologist:: Tito Miles MD Complications:: None Pre-procedure Diagnosis:: Postlaminectomy syndrome lumbar spine with lumbar radiculopathy symptoms Post-procedure Diagnosis:: Same Indications for Procedure:: Patient is a pleasant 67-year-old white female who we are treating for low back pain with lumbar radiculopathy symptoms with postlaminectomy syndrome lumbar spine. She has failed all previous conservative treatments including injections, oral medications, physical therapy and previous surgery. She has had a successful psychological evaluation. She presents for intrathecal pump trial today. Procedure Details:: Pain pump trial Informed consent was obtained and the risk and benefits of the procedure was explained to the patient. The patient was taken to the procedure room and plac ed prone on the procedure table. Patient was prepped and draped in sterile fashion. C-arm fluoroscopy was used to view the lumbar spine. The skin and subcutaneous tissues were anesthetized using lidocaine. I placed a 18-gauge spinal needle into the L4-5 interspace and advanced until clear CSF was obtained. After this intrathecal catheter was inserted and advanced very easily to the L1 vertebral body. The needle was withdrawn. We were able to freely withdraw clear CSF through the catheter. We then injected intrathecal opioid single shot bolus of 25 mcg followed by saline and followed by the previous CSF that was withdrawn. The needle and catheter were then removed and a Band-Aid was placed. Patient tolerated the procedure well with no complications. We reevaluated the patient after 30 minutes to 1 hour. She was also reassessed by physical therapy. She was 90 to 100% better. She is more functional. Pain was minimal. Pain score is a 1 out of 10. She was proceed with permanent placement. We will plan on permanent placement with intrathecal morphine 1 mg per mill to start at 100 mcg/day with catheter tip at the T8 vertebral body. Plan and Disposition:: We will follow-up with this patient in 1 week. We will seek approval for permanent placement of intrathecal pain pump. This was a successful intrathecal pump trial.
--- NOTE | 2023-04-04 14:38 | PC.NURSE ---
1435-DR MOORE PRESENT, SPEAKING WITH PATIENT, IV REMOVED WITH CATHETER INTACT AT THIS TIME. NO S.SX OF INFECTION OR INFILTRATION NOTED
== END 2023-04-04 14:45 | disposition home or self-care (01) ==
PROVIDERS: PCP Family Medicine; Visit Provider Anesthesiology
DX: M96.1 Postlaminectomy syndrome, not elsewhere classified (principal); M54.16 Radiculopathy, lumbar region
CPT/HCPCS: 62323

== ENCOUNTER → 2023-04-11 13:46 | Outpatient (CLI) | payer MEDICARE, SELFPAY ==
--- NOTE | 2023-04-11 13:46 | US_ITS ---
PROCEDURE: US TRANSVAGINAL CLINICAL INDICATION: pelvic pain COMPARISON: No exams were available for comparison FINDINGS: UTERUS: 8cm x 7cmx 5cm with a combined endometrial thickness of 16.6mm. The uterus is retroverted and retroflexed. There is a small posterior fibroid measuring 1.3 cm x 0.6 cm x 0.8 cm. Endometrium has a thickened multi-cystic appearance concerning for hyperplasia or carcinoma. LEFT OVARY: Not visualized RIGHT OVARY: Not visualized There is no fluid in the cul-de-sac. IMPRESSION: 1. Uterus is retroverted and retroflexed. 2. The endometrium is markedly thickened with a multi-cystic appearance concerning for hyperplasia or carcinoma. 3. Endometrial sampling is suggested. 4. The ovaries were not visualized. Dictated by: Madhav Escobar MD 04/13/2023 20:14 Madhav Escobar MD in OV 04/13/2023 20:14
== END ==
LOC: RAD 13:46
PROVIDERS: PCP Family Medicine; Visit Provider Obstetrics & Gynecology
DX: R10.2 Pelvic and perineal pain (principal)
CPT/HCPCS: 76830

== ENCOUNTER → 2023-05-12 10:05 | Outpatient (CLI) | payer MEDICARE, SELFPAY ==
[2023-05-12 11:17] LABS: Anion Gap 9.6 mEq/L (5-15); Blood Urea Nitrogen 21 mg/dl (7-17); Calcium 9.6 mg/dl (8.4-10.2); Carbon Dioxide 34 mmol/L (22.0-30.0); Chloride 100 mmol/L (98-107); Estimated Glomerular Filt Rate 71 ml/min (>60); GFR (African American) 86 ML/MIN (>60); Glucose 121 mg/dl (74-100); Potassium 3.6 mmoL/L (3.5-5.1); Sodium 140 mmol/L (136-145)
[2023-05-12 11:44] LABS: Amphetamine/Metha Screen,Urine Negative ng/ml (<1000); Benzodiazepines Screen,Urine Negative ng/ml (<200)
[2023-05-12 11:45] LABS: Barbiturates Screen,Urine Negative ng/ml (<200)
[2023-05-12 11:46] LABS: Cannabinoid Screen,Urine Negative ng/ml (<50)
[2023-05-12 11:47] LABS: Cocaine Screen,Urine Negative ng/ml (<300); Methadone Screen,Urine Negative ng/ml (<300)
[2023-05-12 11:48] LABS: Opiate Screen,Urine Negative ng/ml (<300); Phencyclidine Screen,Urine Negative ng/ml (<25)
[2023-05-12 13:37] LABS: Basophils % 0.2 % (0.1-2.0); Eosinophils # 0.2 K/mm3 (0.0-0.4); Eosinophils % 2.7 % (0.1-12.0); Hematocrit 43.9 % (37.0-47.0); Lymphocytes # 2.3 K/mm3 (0.7-4.5); Lymphocytes % 25.9 % (10-50); Mean Corpuscular HGB Conc 31.9 g/dL (31.8-35.4); Mean Corpuscular Hemoglobin 27.1 pg (27.0-31.2); Mean Corpuscular Volume 84.7 fl (81-99); Mean Platelet Volume 8.7 fl (7.4-10.4); Monocytes # 0.4 K/mm3 (0.1-1.0); Monocytes % 4.8 % (1.7-9.3); Neutrophils # 5.9 K/mm3 (1.8-7.8); Neutrophils % 66.3 % (37.0-80.0); Platelet Count 228 K/mm3 (142-424); Red Blood Count 5.18 M/mm3 (4.20-5.40); White Blood Count 8.9 K/mm3 (4.8-10.8)
== END ==
PROVIDERS: PCP Family Medicine; Visit Provider Anesthesiology
DX: M51.36 Other intervertebral disc degeneration, lumbar region (principal); Z01.812 Encounter for preprocedural laboratory examination
CPT/HCPCS: 36415; 80048; 80305; 85025

== ENCOUNTER 2023-05-16 07:39 | Day surgery (SDC) | payer MEDICARE, SELFPAY ==
[2023-05-14 11:02] VITALS: BMI 45.3
[2023-05-16] VITALS (7 sets, daily range): BP systolic 101–162; BP diastolic 45–63; PULSE 64–99; RESP 16–18; TEMP 36.1–36.2; O2SAT 90–97
--- NOTE | 2023-05-16 08:39 | EXP.ANES.CKL ---
[facility] Disclaimer: The information contained in this section may have been updated after the patient was seen, as this information can be updated by other users. Medical History Adjustment disorder Cataract Edema History of back pain History of hypertension Hypothyroidism Obstructive sleep apnea Osteoarthritis Pelvic pain Surgical History (Updated 05/16/23 @ 08:00 by Lenore Arriola RN) History of back surgery History of carpal tunnel surgery Hx of breast reduction, elective Hx of cataract removal with insertion of prosthetic lens Hx of cholecystectomy Hx of dilation and curettage Hx of rotator cuff surgery Hx of tonsillectomy Status post lumbar spinal fusion Family History Other Cancer Diabetes Hypertension Social History (Updated 05/16/23 @ 08:00 by Lenore Arriola RN) Smoking Status: Former smoker pack-years: 10 smoking status stop date: 1992 second hand exposure: Yes alcohol intake: never substance use type: denies use current occupational status: retired Travel in the last 8 weeks: None household members: spouse housing: house lives independently: No marital status: education level: high school service: No [place] [facility]: No current occupational exposures/hazards: No pets and animals: Yes pets and animals: dog(s) sexually active: No caffeine: No do you feel safe at home: Yes victim of physical abuse: No victim of emotional abuse: No victim of sexual abuse: No would you like helpful sources: No [facility] Anesthesia Checklist Patient Identification Patient Identification: Arm Band and Verbal (Name & ) Structural Data Admitted From: Home Planned Operative Procedure/s: IPPP Consent for Planned Operative Procedure(s) Verified: Yes NPO Status Verified Time NPO: 00:00 Chart Verification Results Verified: CBC and BMP Additional verifications Anesthesia Reactions: No Hx Blood Transfusions: No Blood Transfusion Reaction: No Airway Assessment C-Spine Mobility Assessed: Yes TMJ Mobility Assessed: Yes Dentition: Edentulous Neurological Assessment Level of Consciousness: Awake Hx Seizures: No Numbness or tingling in extremities: No Anesthesia Plan Anesthesia Risk discussed: Yes Anesthesia Plan: Verified ASA Class: III Anesthesia Type: MAC
--- NOTE | 2023-05-16 12:36 | EXP.OP.NOTE ---
Date of procedure: 05/16/23 Pre-op Diagnosis:: Degenerative disc disease of lumbar spine with lumbar radiculopathy symptoms and postlaminectomy syndrome lumbar spine Post-op Diagnosis:: Same Procedure performed:: Permanent placement intrathecal pain pump with placement of pain pump generator and tunneled intrathecal catheter Surgeon:: Tito Miles MD [employer]OCIATE:: Other Anesthesia: MAC Estimated blood loss (mL): 5 Clinical Note:: This patient is a pleasant 67-year-old white female who we are treating for low back pain with lumbar radiculopathy symptoms and postlaminectomy syndrome lumbar spine. She has failed all previous conservative treatments including injections, oral medications, physical therapy and she is not a candidate for further surgery. She has had a successful psychological evaluation. She has had a successful intrathecal pump trial. She presents for permanent placement of her intrathecal pain pump today. Operative findings:: None Operative note:: Informed consent was obtained the risk and benefits of the procedure were explained to the patient. Patient was taken the operating placed prone on the procedure table. Patient was prepped and draped in sterile fashion. C-arm fluoroscopy was used to view the right flank. Skilled Nursing between the 12th rib and iliac crest I made an incision after anesthetizing skin and subcutaneous tissues. I created the pocket for the pump generator. C-arm fluoroscopy was then used to view the lumbar spine. The skin and subcutaneous tissues were anesthetized and lidocaine. I made an incision and dissected down to the lumbar paraspinous fascia. A 17-gauge spinal needle was inserted and advanced into the L5-S1 interspace. After obtaining clear CSF intrathecal catheter was inserted and advanced very easily to the T8 vertebral body. The stylette of the catheter and the needle withdrawn. Catheter placement was checked in AP and lateral views. The catheter was posterior in the intrathecal space. Catheter was secured to the fascia with anchoring devices and 2-0 Prolene. I filled the pump with 20 mils of intrathecal morphine 1 mg per ml. I tunneled the catheter from the back to the pump pocket and attached catheter to the pump. We were able to freely withdraw clear CSF through the sideport. The pump was placed in the pocket. We did use an antibiotic pouch in the pocket. Again we were able to freely withdraw clear CSF through the catheter access port. Both incisions were irrigated with antibiotic solution. Both incisions were then closed with 2-0 Vicryl followed by 4-0 nylon and christina. Patient tolerated the procedure well with no complications. Pump was interrogated and started at 100 mcg/day of intrathecal morphine. Patient tolerated the procedure well with no complications. Patient was discharged home neurologic intact with good relief of pain symptoms. Plan and disposition: We will follow-up with this patient in 1 week for wound check and reprogram. We will follow-up in 2 to 3 weeks for suture and staple removal. Condition: stable Disposition: PACU Complications:: None
== END 2023-05-16 13:35 | disposition home or self-care (01) ==
PROVIDERS: PCP Family Medicine; Visit Provider Anesthesiology
DX: M51.16 Intervertebral disc disorders with radiculopathy, lumbar region (principal); M96.1 Postlaminectomy syndrome, not elsewhere classified
CPT/HCPCS: 62350; 62362; 96374; C1755; C1772; J2405

== ENCOUNTER → 2023-05-19 08:45 | Outpatient (POV) | payer MEDICARE, SELFPAY ==
--- NOTE | 2023-05-19 09:12 | EXP.PAIN.PRO ---
Procedure Date: 05/19/23 Time: 09:12 Anesthesiologist:: Suzi Renee APRN Complications:: None Pre-procedure Diagnosis:: Degenerative disc disease of lumbar spine with lumbar radiculopathy symptoms, postlaminectomy syndrome lumbar spine Post-procedure Diagnosis:: Same Indications for Procedure:: Patient is a pleasant 67-year-old female who presents today for intrathecal pain pump reprogramming adjustment and follow-up of intrathecal pain pump implant on 05/16/23. The patient is being treated for degenerative disc disease of lumbar spine with lumbar radiculopathy symptoms, postlaminectomy syndrome lumbar spine, low back pain, right hip pain. Patient is currently being managed with morphine 1 mg/mL with a daily dose of 0.0999 mg/day. Patient denies any side effects from this medication. Patient rates pain a 7 out of 10. Drug screen is appropriate. [facility] [id number] has been reviewed and is appropriate. Physical exam General: Alert and oriented x3, no acute distress, pleasant and cooperative Lungs: Respirations even and unlabored, symmetrical chest expansion Eyes: PERRL Musculoskeletal: Flexion and extension of lumbar [spine] somewhat guarded secondary to pain, [antalgic gait noted] Neurological: Speech clear, no gross sensory deficit Skin: Incisions clean, dry, well approximated with minimal erythema noted chritsina and sutures intact Procedure Details:: Informed consent was obtained and the risk and benefits of the procedure were explained to the patient. Patient was taken to the procedure room where noninvasive monitoring was placed including noninvasive blood pressure cuff and pulse oximeter. Patient's pump was interrogated and was reprogrammed to morphine 0.105 mg/day. The patient tolerated the procedure well with no complications. Plan and Disposition:: Patients incisions are clean, dry, well approximated with minimal erythema noted. Dressings were placed over her incision sites during today's visit. I have counseled the patient to continue her 6-week postop restrictions of minimal bending, lifting or twisting, no submerging in water until her incisions are fully healed and to continue to wear her abdominal binder to prevent seroma formation. I have counseled the patient that she will return to clinic in approximately 2 weeks for reevaluation of symptoms and suture and staple removal if indicated. Patient has been instructed to contact the clinic with any concerns before the next appointment. Dr. Miles has reviewed this note and agrees with this plan of care. This note was dictated using voice recognition software and make contain errors or omissions. -- It Is medically necessary for this patient to continue to have their intrathecal pump refilled at regular intervals. This patient had an intrathecal pain pump implanted after meeting criteria of chronic intractable pain for greater than 3 months and failing conservative treatments. Patient has committed and been compliant to the treatment plan and all planned follow up care. Since implantation of the intrathecal pain pump, the patient has had decreased pain and been more functional. Oral medications have been reduced including intake of oral opioids. Patient continues to do well with intrathecal therapy with decrease in pain symptoms and increase in functional status. Stopping intrathecal medications can lead to life threatening withdrawal, seizures, cardiac arrest, severe pain, and possible . Pumps that are not refilled at regular intervals can be damages and cause and need for replacement. We continually titrate dose and concentration to optimize pain relief and function. We are limited in concentration for certain drugs to safely deliver medications through the pump and stay within the recommendations from the Polyanalgesic Consensus Committee Guidelines. Depending on dose and concentration these pumps may need to be refilled sooner than 3 months as we titrate.
[2023-05-19 09:22] VITALS: BP 133/56; PULSE 76; RESP 20; O2SAT 94; BMI 45.3
== END | disposition home or self-care (01) ==
PROVIDERS: PCP Family Medicine; Visit Provider Nurse Practitioner Family
DX: M51.16 Intervertebral disc disorders with radiculopathy, lumbar region (principal); M96.1 Postlaminectomy syndrome, not elsewhere classified
CPT/HCPCS: 62368

== ENCOUNTER → 2023-06-04 09:54 | Outpatient (POV) | payer MEDICARE, SELFPAY ==
[2023-06-04 10:30] VITALS: BP 129/55; PULSE 74; RESP 18; O2SAT 96; BMI 45.3
--- NOTE | 2023-06-04 10:37 | EXP.PAIN.PRO ---
Procedure Date: 06/04/23 Time: 10:37 Anesthesiologist:: Suzi Renee APRN Complications:: None Pre-procedure Diagnosis:: Degenerative disc disease of lumbar spine with lumbar radiculopathy symptoms, lumbar postlaminectomy syndrome Post-procedure Diagnosis:: Same Indications for Procedure:: Patient is a pleasant 67-year-old female who presents today for follow-up. We are currently treating the patient for degenerative disc disease of the lumbar spine with lumbar radiculopathy symptoms, lumbar postlaminectomy syndrome. Patient did have a intrathecal pain pump implanted on 05/16/2023. Patient denies any new trauma or injury following this procedure. She denies any change in location or type of pain she experiences. Today she does rate her pain at a 9 out of 10. She states she continues to have low back and hip pain. She is currently managed with morphine 1 mg/mL with a daily dose of 0.105 mg/day. Patient denies any side effects from this medication. She is also prescribed clonazepam 0.5 mg twice a day from an outside provider. Her Lc is [id number]. It has been reviewed and appropriate. Physical Exam: General: Alert and oriented x3, no acute distress, pleasant and cooperative Lungs: Respirations even and unlabored, symmetrical chest expansion Eyes: PERRL Musculoskeletal: Flexion and extension of lumbar [spine] somewhat guarded secondary to pain, [antalgic gait noted] Neurological: Speech clear, no gross sensory deficit Skin: Incision sites clean, dry, well-approximated with mild erythema noted at right lateral incision, christina and sutures intact Procedure Details:: Informed consent was obtained and the risk and benefits of the procedure were explained to the patient. Patient was taken to the procedure room where noninvasive monitoring was placed including noninvasive blood pressure cuff and pulse oximeter. Patient's pump was interrogated and was reprogrammed to morphine 0.1154 mg/day. The patient tolerated the procedure well with no complications. Plan and Disposition:: Patient's incision was clean, dry, well-approximated with mild erythema noted at her right lateral incision. She did have all of her sutures removed during today's visit and all of her christina removed from the midline incision however we did leave several christina in the lateral incision. I have counseled the patient to continue her postop restrictions of minimal bending, lifting or twisting, no submerging in water until her incisions are fully healed and to continue to use her abdominal binder to prevent seroma formation. I have counseled the patient that I will have her return to clinic in 2 weeks for the remainder of her suture removal and reevaluation of symptoms. Patient did tolerate her intrathecal increase with no complications and was discharged neurologically intact. Patient has been instructed to contact the clinic with any concerns before the next appointment. Dr. Miles has reviewed this note and agrees with this plan of care. This note was dictated using voice recognition software and make contain errors or omissions. -- It Is medically necessary for this patient to continue to have their intrathecal pump refilled at regular intervals. This patient had an intrathecal pain pump implanted after meeting criteria of chronic intractable pain for greater than 3 months and failing conservative treatments. Patient has committed and been compliant to the treatment plan and all planned follow up care. Since implantation of the intrathecal pain pump, the patient has had decreased pain and been more functional. Oral medications have been reduced including intake of oral opioids. Patient continues to do well with intrathecal therapy with decrease in pain symptoms and increase in functional status. Stopping intrathecal medications can lead to life threatening withdrawal, seizures, cardiac arrest, severe pain, and possible . Pumps that are not refilled at regular intervals
== END | disposition home or self-care (01) ==
PROVIDERS: PCP Family Medicine; Visit Provider Nurse Practitioner Family
DX: M51.16 Intervertebral disc disorders with radiculopathy, lumbar region (principal); M96.1 Postlaminectomy syndrome, not elsewhere classified; Z97.8 Presence of other specified devices
CPT/HCPCS: 62368; 99213; G0463

== ENCOUNTER → 2023-06-06 10:12 | Outpatient (CLI) | payer MEDICARE, SELFPAY ==
[2023-06-06 10:42] LABS: Basophils % 0.5 % (0.1-2.0); Eosinophils # 0.2 K/mm3 (0.0-0.4); Eosinophils % 2.7 % (0.1-12.0); Hematocrit 41.2 % (37.0-47.0); Hemoglobin 13.4 g/dL (12.2-16.2); Lymphocytes # 1.9 K/mm3 (0.7-4.5); Lymphocytes % 21.7 % (10-50); Mean Corpuscular HGB Conc 32.5 g/dL (31.8-35.4); Mean Platelet Volume 8.4 fl (7.4-10.4); Monocytes # 0.6 K/mm3 (0.1-1.0); Monocytes % 6.7 % (1.7-9.3); Neutrophils % 68.4 % (37.0-80.0); Platelet Count 283 K/mm3 (142-424); Red Blood Count 4.96 M/mm3 (4.20-5.40); Red Cell Distribution Width 13.9 % (11.5-17.5); White Blood Count 8.8 K/mm3 (4.8-10.8)
[2023-06-06 11:34] LABS: Alanine Aminotransferase 38 U/L (12-78); Albumin Level 3.7 g/dl (3.5-5.0); Albumin/Globulin Ratio 1.2 (1.1-1.8); Alkaline Phosphatase 91 U/L (38-126); Anion Gap 11.7 mEq/L (5-15); Aspartate Amino Transferase 34 U/L (14-36); Bilirubin,Total 0.5 mg/dl (0.2-1.3); Blood Urea Nitrogen 12 mg/dl (7-17); Calcium 9.3 mg/dl (8.4-10.2); Carbon Dioxide 31 mmol/L (22.0-30.0); Chloride 101 mmol/L (98-107); Estimated Glomerular Filt Rate 99 ml/min (>60); GFR (African American) 120 ML/MIN (>60); Globulin 3.1 g/dL (1.3-3.2); Glucose 109 mg/dl (74-100); Potassium 3.7 mmoL/L (3.5-5.1); Sodium 140 mmol/L (136-145); Total Protein,Serum 6.8 g/dl (6.3-8.2)
== END ==
PROVIDERS: PCP Family Medicine; Visit Provider Obstetrics & Gynecology
DX: R10.2 Pelvic and perineal pain (principal)
CPT/HCPCS: 36415; 80053; 85025

== ENCOUNTER 2023-06-11 06:06 | Day surgery (SDC) | payer MEDICARE, SELFPAY ==
[2023-06-06 12:18] VITALS: BMI 45.3
[2023-06-11] VITALS (9 sets, daily range): BP systolic 98–129; BP diastolic 47–83; PULSE 57–70; RESP 12–18; TEMP 36.2–36.6; O2SAT 92–95
--- NOTE | 2023-06-11 07:43 | P.PNANES_ITS ---
[facility] Disclaimer: The information contained in this section may have been updated after the patient was seen, as this information can be updated by other users. Medical History Adjustment disorder Cataract Edema History of back pain History of hypertension Hypothyroidism Obstructive sleep apnea She will need to contact her vendor in order to get her CPAP returned and a new machine in place. I do think this will help with her energy level when she is getting better rest. Osteoarthritis Pelvic pain Thickened endometrium Surgical History History of back surgery History of carpal tunnel surgery Hx of breast reduction, elective Hx of cataract removal with insertion of prosthetic lens Hx of cholecystectomy Hx of dilation and curettage Hx of rotator cuff surgery Hx of tonsillectomy Status post lumbar spinal fusion Family History Other Cancer Diabetes Hypertension Social History (Updated 06/06/23 @ 12:20 by Julienne Carcamo RN) Smoking Status: Former smoker pack-years: 10 smoking status stop date: 1992 second hand exposure: Yes alcohol intake: never substance use type: denies use current occupational status: retired Travel in the last 8 weeks: None household members: spouse housing: house lives independently: No marital status: education level: high school service: No intermediate: No current occupational exposures/hazards: No pets and animals: Yes pets and animals: dog(s) sexually active: No caffeine: No do you feel safe at home: Yes victim of physical abuse: No victim of emotional abuse: No victim of sexual abuse: No would you like helpful sources: No [facility] Anesthesia Checklist Patient Identification Patient Identification: Verbal (Name & ) Structural Data Admitted From: Home Planned Operative Procedure/s: hyst d/c NPO Status Verified Time NPO: 00:00 Additional verifications Anesthesia Reactions: No Hx Blood Transfusions: No Blood Transfusion Reaction: No Airway Assessment Mallampati Score:: Class II C-Spine Mobility Assessed: Yes TMJ Mobility Assessed: Yes Dentition: Edentulous Neurological Assessment Level of Consciousness: Awake, Alert and Appropriate Anesthesia Plan Anesthesia Risk discussed: Yes Anesthesia Plan: Verified ASA Class: II Anesthesia Type: General
--- NOTE | 2023-06-11 08:06 | EXP.OP.NOTE ---
Date of procedure: 06/11/23 Pre-op Diagnosis:: 1. Pelvic pain 2. Thickened endometrium Post-op Diagnosis:: 1. Pelvic pain 2. Thickened endometrium 3. Endometrial polyp Procedure performed:: Hysteroscopy, Dilation and Myosure curettage with polypectomy Surgeon:: Lindsey Crowley DO Vice President Sales And Marketing(s):: N/a STUDENT SUCCESS COACH:: Filippo Zaldivar Anesthesia: GETA Estimated blood loss (mL): 0 Clinical Note:: Ms Shania Garibay is a very pleasant 67 yo [id number] who presents to [facility] for scheduled procedure. She complains of lower abdominal pain for the past few weeks. No vaginal bleeding. Reports a foul odor but is unsure if it is vaginal or urinary. Last period was age 34. Denies mood swings, night sweats, or fatigue. Unsure of last pap. Denies abnormal hx of pap smears but does report hx of D&C in the past for post menopausal bleeding.? Reports she is on a water pill from cardiology to help with edema and this causes occasional incontinence. Pelvic ultrasound 04/11/23 demonstrated uterus is retroverted and retroflexed, endometrium is markedly thickened, 16.6 mm, with a multi-cystic appearance concerning for hyperplasia or carcinoma; Endometrial sampling is suggested. The ovaries were not visualized. Operative findings:: 1. On bimanual exam, uterus retroverted, normal size and shape, midline. No adnexal masses palpated. 2. On hysteroscopic exam, bilateral tubal ostia easily visualized, endometrial polyp noted near fundus, atrophic endometrium with calcifications noted Operative note:: Risks, benefits and alternatives were discussed with the patient. Risks include but are not limited to bleeding, infection, uterine perforation and VTE. Patient voiced understanding and agreed to proceed. She was wheeled back to the operating room and placed under general anesthesia without difficulty. She was placed in dorsal lithotomy position and prepped and draped in the normal sterile fashion. Straight catheter was used to drain the bladder. A bimanual exam was performed. A weighted Auvard was placed in the vaginal vault. Single tooth tenaculum was placed on anterior lip of the cervix. Uterus sounded to 9. Sequential Osmani dilators were used to dilate the cervical os. Hysteroscope was inserted through the cervix without difficulty. Endometrial cavity was evaluated. See findings above. Pictures were taken. Myosure was inserted through the hysteroscope. Myosure curettage was performed per protocol in a 360 degree fashion under direct visualization. Myosure was used to perform polypectomy. A moderate amount of tissue was obtained. Hysteroscope with Myosure was removed. Instruments were removed from the vagina. Tenaculum site was hemostatic Patient was awaken from anesthesia without difficulty. She was transported to recovery room in stable condition. Patient will be discharged home when awake and ambulating. She was given postop instructions as well as instructions to follow-up in the office on 06/25/23 Condition: stable Disposition: same day Specimens:: 1. Endometrial curettings Complications:: None
--- NOTE | 2023-06-11 08:10 | P.PNANES_ITS ---
[facility] Anesthesia Record Part I Anesthesia Record I Intake, IV Amount: 1,200 Hydration: Adequate Estimated blood loss (mL): 0 Urine output (mL): 50 Blood Pressure: 120/83 SaO2: 94 Pulse Rate: 62 Airway Patency: Patent Respiratory Rate: 12 Temperature: 97.5 F Patient is:: Awake and Stable Stable to PACU at:: 08:10
--- NOTE | 2023-06-12 08:32 | EXP.ANES.II ---
[facility] Anesthesia Record Part II Anesthesia Record Part II Discharge Time: 08:40 Destination: Surgical Day Care (OP Surgery) PACU nurse assessment reviewed?: Yes Patient Condition:: Good Anesthesia Complications:: None Swallowing reflex intact?: Yes Airway Patency: Patent Cyanosis?: No Blood Pressure: 102/47 SaO2: 95 Respiratory Rate: 18 Pulse Rate: 62 Temperature: 97.8 F Mental Status: Alert & Oriented Pain level:: 0 Nausea and/or vomitting:: None Intake, IV Amount: 0 Hydration: Adequate
[2023-06-12 08:33] VITALS: BP 102/47; PULSE 62; RESP 18; TEMP 36.6; O2SAT 95
== END 2023-06-11 09:12 | disposition home or self-care (01) ==
PROVIDERS: PCP Family Medicine; Visit Provider Obstetrics & Gynecology
DX: N85.4 Malposition of uterus (principal); N84.0 Polyp of corpus uteri; R93.89 Abnormal findings on diagnostic imaging of other specified body structures
CPT/HCPCS: 58558; 88302; 96374; J2405

== ENCOUNTER → 2023-06-18 09:16 | Outpatient (POV) | payer MEDICARE, SELFPAY ==
--- NOTE | 2023-06-18 09:36 | EXP.PAIN.PRO ---
Procedure Date: 06/18/23 Time: 09:37 Anesthesiologist:: Suzi Renee APRN Complications:: None Pre-procedure Diagnosis:: Degenerative disc disease of lumbar spine with lumbar radiculopathy symptoms, lumbar postlaminectomy syndrome Post-procedure Diagnosis:: Same Indications for Procedure:: Patient is a pleasant 67-year-old female who presents today for follow-up. We are currently treating the patient for degenerative disc disease of the lumbar spine with lumbar radiculopathy symptoms, lumbar postlaminectomy syndrome. She originally had her intrathecal pain pump implanted on 05/16/2023. She denies any new trauma or injury. She denies any change in location or type of pain she experiences. Today she does rate her pain at a 8 out of 10. She states she continues to have low back and hip pain. She is currently managed with morphine 1 mg/mL with a daily dose of 0.1154 mg/day. Patient denies any side effects from this medication. She is also prescribed clonazepam 0.5 mg twice a day from an outside provider. Her Lc is [id number]. It has been reviewed and appropriate. Physical Exam: General: Alert and oriented x3, no acute distress, pleasant and cooperative Lungs: Respirations even and unlabored, symmetrical chest expansion Eyes: PERRL Musculoskeletal: Flexion and extension of lumbar [spine] somewhat guarded secondary to pain, [antalgic gait noted] Neurological: Speech clear, no gross sensory deficit Skin: Incision sites clean, dry, well-approximated with mild erythema noted at right lateral incision, christina and sutures intact Procedure Details:: Informed consent was obtained and the risk and benefits of the procedure were explained to the patient. Patient was taken to the procedure room where noninvasive monitoring was placed including noninvasive blood pressure cuff and pulse oximeter. Patient's pump was interrogated and was reprogrammed to morphine 0.1271 mg/day the patient tolerated the procedure well with no complications. Plan and Disposition:: Patient tolerated her intrathecal increase with no complications and was discharged neurologically intact. Her incision facilities are clean, dry, well approximated with mild erythema noted at her lateral incision. She did have the remaining christnia and sutures removed during today's visit and Steri-Strips applied. I have counseled her to continue her postop restrictions. Patient will return to clinic in 2 weeks for reevaluation of symptoms and plan of care. Patient has been instructed to contact the clinic with any concerns before the next appointment. Dr. Miles has reviewed this note and agrees with this plan of care. This note was dictated using voice recognition software and make contain errors or omissions. -- It Is medically necessary for this patient to continue to have their intrathecal pump refilled at regular intervals. This patient had an intrathecal pain pump implanted after meeting criteria of chronic intractable pain for greater than 3 months and failing conservative treatments. Patient has committed and been compliant to the treatment plan and all planned follow up care. Since implantation of the intrathecal pain pump, the patient has had decreased pain and been more functional. Oral medications have been reduced including intake of oral opioids. Patient continues to do well with intrathecal therapy with decrease in pain symptoms and increase in functional status. Stopping intrathecal medications can lead to life threatening withdrawal, seizures, cardiac arrest, severe pain, and possible . Pumps that are not refilled at regular intervals can be damages and cause and need for replacement. We continually titrate dose and concentration to optimize pain relief and function. We are limited in concentration for certain drugs to safely deliver medications through the pump and stay within the recommendations from the Polyanalgesic Consensus Committee Guidelines. Depending on dose and concen
[2023-06-18 10:43] VITALS: BP 134/69; PULSE 74; RESP 18; O2SAT 95; BMI 44.9
== END | disposition home or self-care (01) ==
PROVIDERS: PCP Family Medicine; Visit Provider Nurse Practitioner Family
DX: M51.16 Intervertebral disc disorders with radiculopathy, lumbar region (principal); M96.1 Postlaminectomy syndrome, not elsewhere classified; Z97.8 Presence of other specified devices
CPT/HCPCS: 62368; 99213; G0463

== ENCOUNTER → 2023-07-07 15:20 | Outpatient (POV) | payer MEDICARE, SELFPAY ==
--- NOTE | 2023-07-07 15:36 | EXP.PAIN.PRO ---
Procedure Date: 07/07/23 Time: 15:36 Anesthesiologist:: Suzi Renee APRN Complications:: None Pre-procedure Diagnosis:: Degenerative disc disease of lumbar spine with lumbar radiculopathy symptoms, lumbar postlaminectomy syndrome Post-procedure Diagnosis:: Same Indications for Procedure:: Patient is a pleasant 67-year-old female who presents today for intrathecal adjustment and reprogram. We are currently treating the patient for degenerative disc disease of lumbar spine with lumbar radiculopathy symptoms, lumbar postlaminectomy syndrome. Today she rates her pain an 8 out of 10. Patient denies any new trauma or injury. She does state that she is continue to increase her activity and over the last couple days has had worsening pain. Patient is currently managed with morphine 1 mg/mL with a daily dose of 0.1271 mg/day. Patient denies any side effects from this medication. She does state that from her last visit she did have improvement however she has continued to increase her activity. Her Lc is [id number]. Is been reviewed and appropriate. Physical Exam: General: Alert and oriented x3, no acute distress, pleasant and cooperative Lungs: Respirations even and unlabored, symmetrical chest expansion Eyes: PERRL Musculoskeletal: Flexion and extension of lumbar [spine] somewhat guarded secondary to pain, [antalgic gait noted] Neurological: Speech clear, no gross sensory deficit Procedure Details:: Informed consent was obtained and the risk and benefits of the procedure were explained to the patient. Patient was taken to the procedure room where noninvasive monitoring was placed including noninvasive blood pressure cuff and pulse oximeter. Patient's pump was interrogated and was reprogrammed to morphine 0.1398mg/day. The patient tolerated the procedure well with no complications. Plan and Disposition:: Patient tolerated her intrathecal increase with no complications and was discharged neurologically intact. Patient will return to clinic in 2 weeks for reevaluation of symptoms and possible intrathecal adjustment and reprogram. Patient has been instructed to contact the clinic with any concerns before the next appointment. Dr. Miles has reviewed this note and agrees with this plan of care. This note was dictated using voice recognition software and make contain errors or omissions. -- It Is medically necessary for this patient to continue to have their intrathecal pump refilled at regular intervals. This patient had an intrathecal pain pump implanted after meeting criteria of chronic intractable pain for greater than 3 months and failing conservative treatments. Patient has committed and been compliant to the treatment plan and all planned follow up care. Since implantation of the intrathecal pain pump, the patient has had decreased pain and been more functional. Oral medications have been reduced including intake of oral opioids. Patient continues to do well with intrathecal therapy with decrease in pain symptoms and increase in functional status. Stopping intrathecal medications can lead to life threatening withdrawal, seizures, cardiac arrest, severe pain, and possible . Pumps that are not refilled at regular intervals can be damages and cause and need for replacement. We continually titrate dose and concentration to optimize pain relief and function. We are limited in concentration for certain drugs to safely deliver medications through the pump and stay within the recommendations from the Polyanalgesic Consensus Committee Guidelines. Depending on dose and concentration these pumps may need to be refilled sooner than 3 months as we titrate.
[2023-07-07 15:58] VITALS: BP 146/69; PULSE 74; RESP 18; O2SAT 95; BMI 44.4
== END | disposition home or self-care (01) ==
PROVIDERS: PCP Family Medicine; Visit Provider Nurse Practitioner Family
DX: M51.16 Intervertebral disc disorders with radiculopathy, lumbar region (principal); M96.1 Postlaminectomy syndrome, not elsewhere classified
CPT/HCPCS: 62368; 99213; G0463

== ENCOUNTER → 2023-07-23 12:51 | Outpatient (POV) | payer MEDICARE, SELFPAY ==
--- NOTE | 2023-07-23 13:51 | EXP.PAIN.PRO ---
Procedure Date: 07/23/23 Time: 13:51 Anesthesiologist:: Suzi Renee APRN Complications:: None Pre-procedure Diagnosis:: Degenerative disc disease of lumbar spine with lumbar radiculopathy symptoms, lumbar postlaminectomy syndrome Post-procedure Diagnosis:: Same Indications for Procedure:: Patient is a pleasant 67-year-old female who presents today for intrathecal adjustment and reprogram. We are currently treating the patient for degenerative disc disease of lumbar spine with lumbar radiculopathy symptoms, lumbar postlaminectomy syndrome. Today she rates her pain a 9 out of 10. Patient states that she has been increasing her activity and continues to have more pain on a daily basis. Patient denies any new injury or trauma. Patient is currently managed with morphine 1 mg/mL with a daily dose of 0.1398 mg/day. She denies any side effects from this medication. Her Lc is [id number]. Its been reviewed and appropriate. Physical Exam: General: Alert and oriented x3, no acute distress, pleasant and cooperative Lungs: Respirations even and unlabored, symmetrical chest expansion Eyes: PERRL Musculoskeletal: Flexion and extension of lumbar [spine] somewhat guarded secondary to pain, [antalgic gait noted] Neurological: Speech clear, no gross sensory deficit Procedure Details:: Informed consent was obtained and the risk and benefits of the procedure were explained to the patient. Patient was taken to the procedure room where noninvasive monitoring was placed including noninvasive blood pressure cuff and pulse oximeter. Patient's pump was interrogated and was reprogrammed to morphine 0.1678 mg/day. The patient tolerated the procedure well with no complications. Plan and Disposition:: Patient tolerated her intrathecal adjustment and reprogram with no complications and was discharged neurologically intact. Patient will return to clinic in 2 weeks for reevaluation of symptoms and plan of care. Patient has been instructed to contact the clinic with any concerns before the next appointment. Dr. Miles has reviewed this note and agrees with this plan of care. This note was dictated using voice recognition software and make contain errors or omissions. -- It Is medically necessary for this patient to continue to have their intrathecal pump refilled at regular intervals. This patient had an intrathecal pain pump implanted after meeting criteria of chronic intractable pain for greater than 3 months and failing conservative treatments. Patient has committed and been compliant to the treatment plan and all planned follow up care. Since implantation of the intrathecal pain pump, the patient has had decreased pain and been more functional. Oral medications have been reduced including intake of oral opioids. Patient continues to do well with intrathecal therapy with decrease in pain symptoms and increase in functional status. Stopping intrathecal medications can lead to life threatening withdrawal, seizures, cardiac arrest, severe pain, and possible . Pumps that are not refilled at regular intervals can be damages and cause and need for replacement. We continually titrate dose and concentration to optimize pain relief and function. We are limited in concentration for certain drugs to safely deliver medications through the pump and stay within the recommendations from the Polyanalgesic Consensus Committee Guidelines. Depending on dose and concentration these pumps may need to be refilled sooner than 3 months as we titrate.
[2023-07-23 14:28] VITALS: BP 114/56; PULSE 71; RESP 18; O2SAT 97; BMI 44.1
== END | disposition home or self-care (01) ==
PROVIDERS: PCP Family Medicine; Visit Provider Nurse Practitioner Family
DX: M51.16 Intervertebral disc disorders with radiculopathy, lumbar region (principal); M96.1 Postlaminectomy syndrome, not elsewhere classified; Z97.8 Presence of other specified devices
CPT/HCPCS: 62368; 99213; G0463

== ENCOUNTER → 2023-08-06 12:40 | Outpatient (CLI) | payer MEDICARE, SELFPAY ==
--- NOTE | 2023-08-06 12:46 | CA_ITS ---
FINAL REPORT CLINICAL HISTORY: chronic edema LT>RT, Obesity COMPARISON: None FINDINGS: Color Doppler, duplex Doppler and compression sonography of the bilateral lower extremities was performed. There is no evidence of deep venous thrombosis from the level of the groin to the calf. The deep veins are patent and compressible. IMPRESSION: No evidence of deep venous thrombosis bilateral lower extremities. Reviewed, Interpreted and Dictated by Feliz Allen III, MD Transcribed by Jes Bolden Authenticated and . [facility]
== END ==
PROVIDERS: PCP Family Medicine; Visit Provider Nurse Practitioner
DX: R60.1 Generalized edema (principal)
CPT/HCPCS: 93970

== ENCOUNTER → 2023-08-13 13:31 | Outpatient (POV) | payer MEDICARE, SELFPAY ==
--- NOTE | 2023-08-13 14:16 | EXP.PAIN.PRO ---
Procedure Date: 08/13/23 Time: 14:16 Anesthesiologist:: Suzi Renee APRN Complications:: None Pre-procedure Diagnosis:: Degenerative disc disease of lumbar spine with lumbar radiculopathy symptoms, lumbar postlaminectomy syndrome Post-procedure Diagnosis:: Same Indications for Procedure:: Patient is a pleasant 67-year-old female who presents today for intrathecal adjustment and reprogram. We are currently treating the patient for degenerative disc disease of lumbar spine with lumbar radiculopathy symptoms, lumbar postlaminectomy syndrome. Today she rates her pain a 9 out of 10. Patient denies any new trauma or injury. She does state that she continues to have worsening pain in her lower extremities and that Dr. Sanchez's office is trying to figure out what is going on. Patient is currently managed with morphine 1 mg/mL with a daily dose of 0.1678 mg/day. Patient denies any side effects from this medication. She does state that the medication does help manage her pain symptoms. Physical Exam: General: Alert and oriented x3, no acute distress, pleasant and cooperative Lungs: Respirations even and unlabored, symmetrical chest expansion Eyes: PERRL Musculoskeletal: Flexion and extension of lumbar [spine] somewhat guarded secondary to pain, [antalgic gait noted] Neurological: Speech clear, no gross sensory deficit Procedure Details:: Informed consent was obtained and the risk and benefits of the procedure were explained to the patient. Patient was taken to the procedure room where noninvasive monitoring was placed including noninvasive blood pressure cuff and pulse oximeter. Patient's pump was interrogated and was reprogrammed to morphine 0.1846 mg/day. The patient tolerated the procedure well with no complications. Plan and Disposition:: Patient tolerated her intrathecal increase with no complications. I have also discussed with the patient in future she may benefit from a lumbar epidural with epidurogram to help with her worsening leg symptoms and back pain. Risk and benefits were discussed with the patient and she states she will review this with Dr. Sanchez's office at her upcoming appointment on Friday and let our office know. Patient was discharged neurologically intact. Patient will return to clinic in 2 weeks for reevaluation of symptoms and plan of care. Patient has been instructed to contact the clinic with any concerns before the next appointment. Dr. Miles has reviewed this note and agrees with this plan of care. This note was dictated using voice recognition software and make contain errors or omissions. -- It Is medically necessary for this patient to continue to have their intrathecal pump refilled at regular intervals. This patient had an intrathecal pain pump implanted after meeting criteria of chronic intractable pain for greater than 3 months and failing conservative treatments. Patient has committed and been compliant to the treatment plan and all planned follow up care. Since implantation of the intrathecal pain pump, the patient has had decreased pain and been more functional. Oral medications have been reduced including intake of oral opioids. Patient continues to do well with intrathecal therapy with decrease in pain symptoms and increase in functional status. Stopping intrathecal medications can lead to life threatening withdrawal, seizures, cardiac arrest, severe pain, and possible . Pumps that are not refilled at regular intervals can be damages and cause and need for replacement. We continually titrate dose and concentration to optimize pain relief and function. We are limited in concentration for certain drugs to safely deliver medications through the pump and stay within the recommendations from the Polyanalgesic Consensus Committee Guidelines. Depending on dose and concentration these pumps may need to be refilled sooner than 3 months as we titrate.
[2023-08-13 15:47] VITALS: BP 128/52; PULSE 69; RESP 18; O2SAT 97; BMI 45.3
== END | disposition home or self-care (01) ==
PROVIDERS: PCP Family Medicine; Visit Provider Nurse Practitioner Family
DX: M51.16 Intervertebral disc disorders with radiculopathy, lumbar region (principal); M96.1 Postlaminectomy syndrome, not elsewhere classified; Z97.8 Presence of other specified devices
CPT/HCPCS: 62368; 99212; G0463

== ENCOUNTER → 2023-08-28 12:40 | Outpatient (POV) | payer MEDICARE, SELFPAY ==
--- NOTE | 2023-08-28 13:17 | EXP.PAIN.PRO ---
Procedure Date: 08/28/23 Time: 13:18 Anesthesiologist:: Suzi Renee APRN Complications:: None Pre-procedure Diagnosis:: Degenerative disc disease of lumbar spine with lumbar radiculopathy symptoms, lumbar postlaminectomy syndrome, lumbar spinal stenosis with neurogenic claudication symptoms Post-procedure Diagnosis:: Same Indications for Procedure:: Patient is a pleasant 67-year-old female who presents today for intrathecal adjustment and reprogram. We are currently treating the patient for degenerative disc disease of lumbar spine with lumbar radiculopathy symptoms, lumbar postlaminectomy syndrome, lumbar spinal stenosis with neurogenic claudication symptoms. Today she rates her pain a 7 out of 10. Patient denies any new trauma or injury. Patient does state that she continues to have worsening pain in her low back that radiate into her lower extremities. She does state this is an aching, throbbing sensation with numbness and tingling. She states it does interfere with her ability perform activities of daily living such as cooking or cleaning or even simple ambulation. Patient has been back to see her primary care doctor and reviewed over whether or not his opinion if she would benefit from an epidural. She does state today that he thought that it would be a good option for her to try. She is currently managed with intrathecal morphine 1 mg/mL with a daily dose of 0.1848 mg/day. She denies any side effects from this medication. She does state that this helps in the last increase to provide additional relief however she feels like she is still not quite at the right level yet. Patient only takes a baby aspirin. Her Lc has been reviewed and is appropriate. Physical Exam: General: Alert and oriented x3, no acute distress, pleasant and cooperative Lungs: Respirations even and unlabored, symmetrical chest expansion Eyes: PERRL Musculoskeletal: Flexion and extension of lumbar [spine] somewhat guarded secondary to pain, [antalgic gait noted] Neurological: Speech clear, no gross sensory deficit Procedure Details:: Informed consent was obtained and the risk and benefits of the procedure were explained to the patient. Patient was taken to the procedure room where noninvasive monitoring was placed including noninvasive blood pressure cuff and pulse oximeter. Patient's pump was interrogated and was reprogrammed to morphine 0.2033 mg/day. The patient tolerated the procedure well with no complications. Plan and Disposition:: Patient continues to experience significant pain in her low back and legs with limited range of motion. Patient does experience symptoms consistent with lumbar spinal stenosis with neurogenic claudication symptoms. Her last imaging did show severe left narrowing and moderate right neuroforaminal narrowing most prominent at the L3-L4 vertebral level. I have reviewed over the risk and benefits of the lumbar epidural steroid injection with epidurogram. Patient would like to proceed forward with this plan of care. Patient is not on any blood thinners. We will schedule the patient for an LESI L3-L4 with epidurogram. Patient tolerated her intrathecal increase with no complications and was discharged neurologically intact. Patient has been instructed to contact the clinic with any concerns before the next appointment. Dr. Miles has reviewed this note and agrees with this plan of care. This note was dictated using voice recognition software and make contain errors or omissions. -- It Is medically necessary for this patient to continue to have their intrathecal pump refilled at regular intervals. This patient had an intrathecal pain pump implanted after meeting criteria of chronic intractable pain for greater than 3 months and failing conservative treatments. Patient has committed and been compliant to the treatment plan and all planned follow up care. Since implantation of the intrathecal pain pump, the patient has had decreased gisela
[2023-08-28 13:23] VITALS: BP 141/58; PULSE 70; RESP 18; O2SAT 95; BMI 44.0
== END | disposition home or self-care (01) ==
PROVIDERS: PCP Family Medicine; Visit Provider Nurse Practitioner Family
DX: M51.16 Intervertebral disc disorders with radiculopathy, lumbar region (principal); M96.1 Postlaminectomy syndrome, not elsewhere classified; M48.062 Spinal stenosis, lumbar region with neurogenic claudication; Z97.8 Presence of other specified devices
CPT/HCPCS: 62368; 99213; G0463

== ENCOUNTER 2023-09-02 13:54 | Day surgery (SDC) | payer MEDICARE, SELFPAY ==
[2023-09-02 13:55] VITALS: BP 123/60; PULSE 71; RESP 16; TEMP 36.7; O2SAT 95; BMI 44.0
[2023-09-02 14:11] VITALS: BP 138/87; PULSE 83; RESP 18; O2SAT 98
[2023-09-02 14:13] VITALS: BP 138/87; PULSE 83; RESP 18; O2SAT 98
--- NOTE | 2023-09-02 14:21 | P.PCN_ITS ---
Procedure Date: 09/02/23 Time: 14:00 Anesthesiologist:: Inderjit Collins CRNA Complications:: None Pre-procedure Diagnosis:: Degenerative disc lumbar spine multilevels. Lumbar radiculopathy. Lumbar postlaminectomy syndrome. Post-procedure Diagnosis:: Same. Indications for Procedure:: Patient is a very pleasant 67-year-old female comes to clinic today for intrathecal pain for interrogation refill. She is currently being managed with morphine sulfate 1 mg/mL at 0.2033 mg/day. Patient doing very well with her current settings. She is not requesting any changes. She does not report any side effects or complications regarding intrathecal pain pump management. Procedure Details:: Details of the procedure explained the patient. The patient taken procedure room placed in the sitting position. The area of the pumps cleansed using chlo rhexidine as a cleansing solution. The pump was interrogated. The pump was accessed with ease using a 22-gauge inch and half needle. 4 mL of solution was withdrawn discarded appropriate. The pump was then filled with 20 cc of solution containing morphine sulfate 1 mg/mL. The rate will continue at 0.2033 mg/day. Patient tolerated procedure without difficulty. There are no complications. Plan and Disposition:: Patient was discharged without incident.
[2023-09-02 14:25] VITALS: BP 125/70; PULSE 71; RESP 16; O2SAT 93
[2023-09-02 15:32] LABS: Amphetamine/Metha Screen,Urine Negative ng/ml (<1000)
[2023-09-02 15:33] LABS: Barbiturates Screen,Urine Negative ng/ml (<200)
[2023-09-02 15:34] LABS: Benzodiazepines Screen,Urine Negative ng/ml (<200); Cannabinoid Screen,Urine Negative ng/ml (<50)
[2023-09-02 15:41] LABS: Methadone Screen,Urine Negative ng/ml (<300)
[2023-09-02 15:42] LABS: Opiate Screen,Urine Negative ng/ml (<300)
[2023-09-02 15:43] LABS: Cocaine Screen,Urine Negative ng/ml (<300); Phencyclidine Screen,Urine Negative ng/ml (<25)
[2023-09-09 08:49] LABS: Opiates Negative (Cutoff=100)
== END 2023-09-02 14:25 | disposition home or self-care (01) ==
PROVIDERS: Anesthesiology; PCP Family Medicine; Visit Provider Nurse Anesthetist, Certified Registered
DX: M51.16 Intervertebral disc disorders with radiculopathy, lumbar region (principal); M96.1 Postlaminectomy syndrome, not elsewhere classified; Z97.8 Presence of other specified devices
CPT/HCPCS: 80305; 80361; 80365; 95991; G0480

== ENCOUNTER 2023-09-17 19:33 | Emergency (ER) | payer MEDICARE, SELFPAY ==
[2023-09-17 19:34] VITALS: BP 135/74; PULSE 79; RESP 16; TEMP 36.8; O2SAT 99; BMI 44.0
--- NOTE | 2023-09-17 20:34 | HMH.EDGENADL ---
Discharge Plan Disposition Patient Disposition: Home, Self-Care Prescriptions Prescriptions: No Action bumetanide 1 mg tablet 1 mg PO BID Patient Comments: TAKE ONE TABLET BY MOUTH EVERY TWELVE HOURS clonazepam 0.5 MG tablet 0.5 mg PO BID omeprazole 40 MG capsule,delayed release(DR/EC) 40 mg PO DAILY hydrochlorothiazide 25 MG tablet 25 mg PO DAILY atorvastatin 20 MG tablet 20 mg PO HS potassium chloride 10 MEQ tablet extended release 10 meq PO BID aspirin 81 MG tablet,delayed release (DR/EC) 81 mg PO DAILY ibuprofen 800 mg tablet 800 mg PO Q8H PRN (Reason: pain) Qty: 20 0RF hydrocodone-acetaminophen 5-325 mg tablet 1 tab PO Q8H PRN (Reason: pain) Qty: 6 0RF levothyroxine [Synthroid] 50 mcg tablet 50 mcg PO DAILY morphine (PF) 1 mg/mL Solution 0.105 mg continuous epidural CONT Rx Instructions: medication delivered via intrathecal pain pump . total volume of pump is 20ml Referrals Follow up/Referrals: Ambika Sanchez MD [Primary Care Provider] - See instructions Activity Restrictions/Add. Instructions Additional Instructions/Restrictions: Your bleeding varicose vein did not improve with direct pressure and required a [id number] suture of for compression and hemostasis. You will need your suture removed within 7 days. Return with any worsening bleeding. Clinical Impressions Clinical Impression: Bleeding from varicose vein Discharge ED Provider: Linda Quick General Adult HPI General Chief complaint: Extremity Injury, Lower Stated complaint: AO 09/17, left leg pain Time Seen by Provider: 09/17/23 20:22 Mode of Arrival: Ambulatory Source of Information: Patient Limitations: No Limitations Description of Symptoms (Recalled from ER Triage Doc. by RN): pt states was scratching lt ortiz and it began bleeding 20 mins prior to arrival. History of Present Illness HPI narrative: Patient is a 67-year-old female presenting today with hemorrhaging from a superficial varicose vein left anterior ortiz after scratching it just prior to arrival. She is only on a daily aspirin 81 mg other anticoagulants. She tried direct pressure without any success and had significant oozing coming from this thus her emergency department visit. Related Data Home Medications Medication Instructions Recorded Confirmed clonazepam 0.5 mg tablet 0.5 mg PO BID NERVE TICK 02/26/19 09/17/23 hydrochlorothiazide 25 mg tablet 25 mg PO DAILY HTN 02/26/19 09/17/23 omeprazole 40 mg capsule,delayed 40 mg PO DAILY GERD 02/26/19 09/17/23 release aspirin 81 mg tablet,delayed 81 mg PO DAILY heart healthy 08/20/21 09/17/23 release atorvastatin 20 mg tablet 20 mg PO HS Cholesterol 08/20/21 09/17/23 potassium chloride 10 mEq 10 meq PO BID Supplement 08/20/21 09/17/23 tablet,extended release bumetanide 1 mg tablet 1 mg PO BID edmea 04/08/23 09/17/23 levothyroxine 50 mcg tablet 50 mcg PO DAILY hypothyroidism 05/14/23 09/17/23 (Synthroid) morphine (PF) 1 mg/mL injection 0.105 mg continuous epidural CONT 05/19/23 09/17/23 solution chronic pain Previous Rx's Medication Instructions Recorded hydrocodone 5 mg-acetaminophen 325 1 tab PO Q8H PRN pain #6 tabs 06/11/23 mg tablet ibuprofen 800 mg tablet 800 mg PO Q8H PRN pain #20 tabs 06/11/23 Allergies Allergy/AdvReac Type Severity Reaction Status Date / Time amoxicillin [From TRIMOX] Allergy Unknown Verified 09/02/23 13:55 Penicillins [PENICILLINS] Allergy Unknown Verified 09/02/23 13:55 PFSH PFSH Disclaimer: The information contained in this section may have been updated after the patient was seen, as this information can be updated by other users. Medical History Adjustment disorder Cataract Edema History of back pain History of hypertension Hypothyroidism Obstructive sleep apnea She will need to contact her vendor in order to get her CPAP ret
[2023-09-17 21:02] VITALS: BP 143/72; PULSE 82; RESP 18; TEMP 36.7; O2SAT 98
--- NOTE | 2023-09-17 21:04 | PC.NURSE ---
Leg and suture site cleaned at this time. No bleeding noted. Dressing applied, and pt discharged with instructions
== END 2023-09-17 21:05 | disposition home or self-care (01) ==
PROVIDERS: Emergency Provider Student in an Organized Health Care Education/Training Program; PCP Family Medicine
DX: I83.892 Varicose veins of left lower extremity with other complications (principal); I10 Essential (primary) hypertension; E03.9 Hypothyroidism, unspecified; G47.33 Obstructive sleep apnea (adult) (pediatric); Z79.82 Long term (current) use of aspirin
CPT/HCPCS: 12001; 99283

== ENCOUNTER → 2023-09-25 14:40 | Outpatient (POV) | payer MEDICARE, SELFPAY ==
--- NOTE | 2023-09-25 15:08 | EXP.PAIN.PRO ---
Procedure Date: 09/25/23 Time: 15:08 Anesthesiologist:: Suzi Renee APRN Complications:: None Pre-procedure Diagnosis:: Degenerative disc disease of lumbar spine with lumbar radiculopathy symptoms, lumbar postlaminectomy syndrome, chronic pain syndrome Post-procedure Diagnosis:: Same Indications for Procedure:: Patient is a pleasant 67-year-old female who presents today for intrathecal adjustment and reprogram as well as follow-up. We are currently treating the patient for degenerative disc disease of lumbar spine with lumbar radiculopathy symptoms, lumbar postlaminectomy syndrome, chronic pain syndrome. Today she rates her pain a 10 out of 10. Patient states that her recently had prostate surgery at a hospital in [place] and that his room required her to walk long distances to and from visits to see him. Patient states that that really has aggravated her low back and leg symptoms. Patient also states she has recently been to her PCP regarding swelling into her lower extremities primarily her left leg with increased redness and warmth. Patient does state that she was prescribed antibiotics that she is scheduled to leaf size picker later today. Patient is currently managed with intrathecal morphine 1 mg/mL with a daily dose of 0.2033 mg/day. She denies any side effects from this medication. She is prescribed clonazepam from an outside provider. Her Lc has been reviewed and is appropriate. Physical Exam: General: Alert and oriented x3, no acute distress, pleasant and cooperative Lungs: Respirations even and unlabored, symmetrical chest expansion Eyes: PERRL Musculoskeletal: Flexion and extension of lumbar [spine] somewhat guarded secondary to pain, [antalgic gait noted] Neurological: Speech clear, no gross sensory deficit Procedure Details:: Informed consent was obtained and the risk and benefits of the procedure were explained to the patient. Patient was taken to the procedure room where noninvasive monitoring was placed including noninvasive blood pressure cuff and pulse oximeter. Patient's pump was interrogated and was reprogrammed to morphine 0.2438 mg/day. The patient tolerated the procedure well with no complications. Plan and Disposition:: Patient tolerated her intrathecal increase with no complications and was discharged neurologically intact. Patient did also have her PTM device set up during today's visit. I have counseled the patient that her left leg symptoms do appear to be cellulitis and have reviewed over worsening symptoms and counseled her to immediately contact our office or her primary care provider if she has concerns that it is getting worse or possibly septic. Patient will return to clinic in 2 weeks for reevaluation of symptoms and plan of care. We will see the patient back in the clinic at the next intrathecal refill. Patient has been instructed to contact the clinic with any concerns before the next appointment. Dr. Miles has reviewed this note and agrees with this plan of care. This note was dictated using voice recognition software and make contain errors or omissions. -- It Is medically necessary for this patient to continue to have their intrathecal pump refilled at regular intervals. This patient had an intrathecal pain pump implanted after meeting criteria of chronic intractable pain for greater than 3 months and failing conservative treatments. Patient has committed and been compliant to the treatment plan and all planned follow up care. Since implantation of the intrathecal pain pump, the patient has had decreased pain and been more functional. Oral medications have been reduced including intake of oral opioids. Patient continues to do well with intrathecal therapy with decrease in pain symptoms and increase in functional status. Stopping intrathecal medications can lead to life threatening withdrawal, seizures, cardiac arrest, severe pain, and possible . Pumps that are not refilled at regular interv
[2023-09-25 15:17] VITALS: BP 137/49; PULSE 79; RESP 20; O2SAT 94; BMI 43.9
== END | disposition home or self-care (01) ==
PROVIDERS: PCP Family Medicine; Visit Provider Nurse Practitioner Family
DX: M51.16 Intervertebral disc disorders with radiculopathy, lumbar region (principal); M96.1 Postlaminectomy syndrome, not elsewhere classified; G89.4 Chronic pain syndrome; Z97.8 Presence of other specified devices
CPT/HCPCS: 62368

== ENCOUNTER 2023-10-03 12:35 | Day surgery (SDC) | payer MEDICARE, SELFPAY ==
[2023-10-03 12:57] VITALS: BP 160/71; PULSE 69; RESP 20; O2SAT 96; BMI 44.4
[2023-10-03 12:59] VITALS: BP 158/44; PULSE 68; RESP 18; O2SAT 95
[2023-10-03 13:00] VITALS: BP 158/44; PULSE 71; RESP 18; O2SAT 95
[2023-10-03 13:22] VITALS: BP 149/63; PULSE 65; RESP 20
--- NOTE | 2023-10-03 15:00 | P.PCN_ITS ---
Procedure Date: 10/03/23 Time: 15:00 Anesthesiologist:: Tito Miles MD Complications:: None Pre-procedure Diagnosis:: Degenerative disease of lumbar spine with postlaminectomy syndrome lumbar spine and lumbar radiculopathy symptoms Post-procedure Diagnosis:: Same Indications for Procedure:: This patient is a pleasant 68-year-old white female who we are treating for low back pain with lumbar radiculopathy symptoms and postlaminectomy syndrome lumbar spine. She does have an intrathecal morphine pain pump in place. She is doing well with her pump. She continues to have radicular symptoms. She presents for lumbar epidural steroid injection under fluoroscopy today. This will be above her fusion at the L3-L4 interspace. Procedure Details:: Informed consent was obtained and the risk and benefits of the procedure was explained to the patient. The patient was taken to the procedure room. The patient was placed prone on the procedure table. The patient was prepped and draped in sterile fashion. C-arm fluoroscopy was used to view the lumbar spine. Skin and subcutaneous tissues were anesthetized using lidocaine. I placed an 18-gauge epidural needle and advanced into the L3-L4 interspace using fluoroscopic guidance and [id number] to air. After confirmation of needle placement in the epidural space with dye I injected 2 mL of lidocaine 1.5% with Depo-Medrol 80 mg. Patient tolerated the procedure well with no comp lications. Plan and Disposition:: We will follow-up with this patient in 2 weeks. Will reevaluate symptoms at that time. She is doing well with her intrathecal pain pump.
== END 2023-10-03 13:23 | disposition home or self-care (01) ==
LOC: SC.PAINP 12:36
PROVIDERS: PCP Family Medicine; Visit Provider Anesthesiology
DX: M51.16 Intervertebral disc disorders with radiculopathy, lumbar region (principal); M96.1 Postlaminectomy syndrome, not elsewhere classified
CPT/HCPCS: 62323; J1040

== ENCOUNTER → 2023-10-09 13:27 | Outpatient (POV) | payer MEDICARE, SELFPAY ==
[2023-10-09 14:18] VITALS: BP 146/59; PULSE 62; RESP 18; O2SAT 95; BMI 44.0
--- NOTE | 2023-10-09 14:20 | EXP.PAIN.PRO ---
Procedure Date: 10/09/23 Time: 14:20 Anesthesiologist:: Suzi Renee APRN Complications:: None Pre-procedure Diagnosis:: Degenerative disc disease of lumbar spine with lumbar radiculopathy symptoms, lumbar postlaminectomy syndrome Post-procedure Diagnosis:: Same Indications for Procedure:: Patient is a pleasant 68-year-old female who presents today for intrathecal reprogramming adjustment. We are currently treating the patient for degenerative disc disease of lumbar spine with lumbar radiculopathy symptoms, lumbar postlaminectomy syndrome. Today she rates her pain a 5 out of 10. Patient denies any new trauma or injury. She does state that she has had significant improvement from her last visit since increasing her pump medication. She states she has been able to walk more and do more activities. She does state that she still feels like she could use a little bit more adjustment. Patient is currently managed with morphine 1 mg/mL with a daily dose of 0.243 mg/day. She denies any side effects from this medication. Patient did also have a lumbar epidural steroid injection at L3-L4 on 10/03/2023. She states she has also had improvement with this of at least 50% and feels like it is still currently helping. Her Lc has been reviewed and is appropriate. Physical Exam: General: Alert and oriented x3, no acute distress, pleasant and cooperative Lungs: Respirations even and unlabored, symmetrical chest expansion Eyes: PERRL Musculoskeletal: Flexion and extension of lumbar [spine] somewhat guarded secondary to pain, [antalgic gait noted] Neurological: Speech clear, no gross sensory deficit Procedure Details:: Informed consent was obtained and the risk and benefits of the procedure were explained to the patient. Patient was taken to the procedure room where noninvasive monitoring was placed including noninvasive blood pressure cuff and pulse oximeter. Patient's pump was interrogated and was reprogrammed to morphine 0.2686 mg/day. The patient tolerated the procedure well with no complications. Plan and Disposition:: Patient tolerated her intrathecal increase with no complications and was discharged neurologically intact. Patient will return to clinic in 1 month for reevaluation of symptoms and plan of care. Patient has been instructed to contact the clinic with any concerns before the next appointment. Dr. Miles has reviewed this note and agrees with this plan of care. This note was dictated using voice recognition software and make contain errors or omissions. -- It Is medically necessary for this patient to continue to have their intrathecal pump refilled at regular intervals. This patient had an intrathecal pain pump implanted after meeting criteria of chronic intractable pain for greater than 3 months and failing conservative treatments. Patient has committed and been compliant to the treatment plan and all planned follow up care. Since implantation of the intrathecal pain pump, the patient has had decreased pain and been more functional. Oral medications have been reduced including intake of oral opioids. Patient continues to do well with intrathecal therapy with decrease in pain symptoms and increase in functional status. Stopping intrathecal medications can lead to life threatening withdrawal, seizures, cardiac arrest, severe pain, and possible . Pumps that are not refilled at regular intervals can be damages and cause and need for replacement. We continually titrate dose and concentration to optimize pain relief and function. We are limited in concentration for certain drugs to safely deliver medications through the pump and stay within the recommendations from the Polyanalgesic Consensus Committee Guidelines. Depending on dose and concentration these pumps may need to be refilled sooner than 3 months as we titrate.
== END | disposition home or self-care (01) ==
PROVIDERS: PCP Family Medicine; Visit Provider Nurse Practitioner Family
DX: M51.16 Intervertebral disc disorders with radiculopathy, lumbar region (principal); M96.1 Postlaminectomy syndrome, not elsewhere classified; Z97.8 Presence of other specified devices
CPT/HCPCS: 62368; 99213; G0463

== ENCOUNTER → 2023-10-15 11:18 | Outpatient (POV) | payer MEDICARE, SELFPAY ==
--- NOTE | 2023-10-15 11:57 | EXP.PAIN.SOA ---
[facility] Pain Management SOAP Note Subjective:: Patient is a pleasant 68-year-old female who presents today for 1 week follow-up. We are currently treating the patient for degenerative disc disease of lumbar spine with lumbar radiculopathy symptoms, lumbar postlaminectomy syndrome. Today she rates her pain a 4 out of 10. Patient denies any new trauma or injury. Patient did have a intrathecal increase last week that she states has provided significant improvement. Patient states she was able to increase her activity with decreased pain symptoms and feels overall more functional. Patient was also set up with her bolus device however she states she has not needed to use this. She is currently managed with morphine 1 mg/mL with a daily dose of 0.2686 mg/day. She denies any side effects from this medication. She states that she is doing well at this current rate. Her Lc has been reviewed and is appropriate. Review of Systems: General: No recent weight changes, no fever, no sleep disturbances Respiratory: No cough, no shortness of air, no recurring pulmonary infections Cardiovascular/peripheral vascular: No chest pain, no palpitations, no edema, no shortness of breath Gastrointestinal: No new onset incontinence, normal bowel movements reported Genitourinary: No new onset incontinence Musculoskeletal: Low back pain Psychiatric: [Normal mood/affect] Neurological: [Denies weakness in extremities], [denies balance issues] Objective:: Physical Exam: General: Alert and oriented x3, no acute distress, pleasant and cooperative Lungs: Respirations even and unlabored, symmetrical chest expansion Eyes: PERRL Musculoskeletal: Flexion and extension of lumbar [spine] somewhat guarded secondary to pain, [antalgic gait noted] Neurological: Speech clear, no gross sensory deficit Assessment:: Degenerative disc disease of lumbar spine with lumbar radiculopathy symptoms, lumbar postlaminectomy syndrome Plan:: Patient has done well following her intrathecal increase and does not require any additional adjustments at today's visit. Patient will return to clinic in 1 month for reevaluation of symptoms and plan of care. We will see the patient back in the clinic at the next intrathecal refill. Patient has been instructed to contact the clinic with any concerns before the next appointment. Dr. Miles has reviewed this note and agrees with this plan of care. This note was dictated using voice recognition software and make contain errors or omissions. -- It Is medically necessary for this patient to continue to have their intrathecal pump refilled at regular intervals. This patient had an intrathecal pain pump implanted after meeting criteria of chronic intractable pain for greater than 3 months and failing conservative treatments. Patient has committed and been compliant to the treatment plan and all planned follow up care. Since implantation of the intrathecal pain pump, the patient has had decreased pain and been more functional. Oral medications have been reduced including intake of oral opioids. Patient continues to do well with intrathecal therapy with decrease in pain symptoms and increase in functional status. Stopping intrathecal medications can lead to life threatening withdrawal, seizures, cardiac arrest, severe pain, and possible . Pumps that are not refilled at regular intervals can be damages and cause and need for replacement. We continually titrate dose and concentration to optimize pain relief and function. We are limited in concentration for certain drugs to safely deliver medications through the pump and stay within the recommendations from the Polyanalgesic Consensus Committee Guidelines. Depending on dose and concentration these pumps may need to be refilled sooner than 3 months as we titrate. [facility] Disclaimer: The information contained in this section may have been updated after the patient was seen, as this information can be updated by other users.
[2023-10-15 13:07] VITALS: BP 132/57; PULSE 60; RESP 18; O2SAT 96; BMI 42.9
== END ==
LOC: SC.PAIN 11:19
PROVIDERS: PCP Family Medicine; Visit Provider Nurse Practitioner Family
DX: M51.16 Intervertebral disc disorders with radiculopathy, lumbar region (principal); M96.1 Postlaminectomy syndrome, not elsewhere classified; Z97.8 Presence of other specified devices
CPT/HCPCS: 99212; G0463

== ENCOUNTER → 2023-11-06 13:26 | Outpatient (POV) | payer MEDICARE, SELFPAY ==
--- NOTE | 2023-11-06 14:05 | EXP.PAIN.PRO ---
Procedure Date: 11/06/23 Time: 14:05 Anesthesiologist:: Suzi Renee APRN Complications:: None Pre-procedure Diagnosis:: Degenerative disc disease of lumbar spine with lumbar radiculopathy symptoms, lumbar postlaminectomy syndrome Post-procedure Diagnosis:: Same Indications for Procedure:: Patient is a pleasant 68-year-old female who presents today for intrathecal adjustment and reprogram. We are currently treating the patient for degenerative disc disease of the lumbar spine with lumbar radiculopathy symptoms, lumbar postlaminectomy syndrome. Today she rates her pain a 5 out of 10. Patient denies any new trauma or injury. She is currently managed with morphine 1 mg/mL with a daily dose of 0.2686 mg/day. Patient denies any side effects from this medication. Patient states that she is doing well with this medication however does feel like it could use a little additional adjustment. Her Lc has been reviewed and is appropriate. Physical Exam: General: Alert and oriented x3, no acute distress, pleasant and cooperative Lungs: Respirations even and unlabored, symmetrical chest expansion Eyes: PERRL Musculoskeletal: Flexion and extension of lumbar [spine] somewhat guarded secondary to pain, [antalgic gait noted] Neurological: Speech clear, no gross sensory deficit Procedure Details:: Informed consent was obtained and the risk and benefits of the procedure were explained to the patient. Patient was taken to the procedure room where noninvasive monitoring was placed including noninvasive blood pressure cuff and pulse oximeter. Patient's pump was interrogated and was reprogrammed to morphine 0.2821 mg/day. The patient tolerated the procedure well with no complications. Plan and Disposition:: Patient tolerated her intrathecal increase with no complications and was discharged neurologically intact. Patient is scheduled for her next intrathecal refill on November 18. I have counseled the patient that I will plan on following up with her in about a month and a half for reevaluation of symptoms and plan of care. We will see the patient back in the clinic at the next intrathecal refill. Patient has been instructed to contact the clinic with any concerns before the next appointment. Dr. Miles has reviewed this note and agrees with this plan of care. This note was dictated using voice recognition software and make contain errors or omissions. -- It Is medically necessary for this patient to continue to have their intrathecal pump refilled at regular intervals. This patient had an intrathecal pain pump implanted after meeting criteria of chronic intractable pain for greater than 3 months and failing conservative treatments. Patient has committed and been compliant to the treatment plan and all planned follow up care. Since implantation of the intrathecal pain pump, the patient has had decreased pain and been more functional. Oral medications have been reduced including intake of oral opioids. Patient continues to do well with intrathecal therapy with decrease in pain symptoms and increase in functional status. Stopping intrathecal medications can lead to life threatening withdrawal, seizures, cardiac arrest, severe pain, and possible . Pumps that are not refilled at regular intervals can be damages and cause and need for replacement. We continually titrate dose and concentration to optimize pain relief and function. We are limited in concentration for certain drugs to safely deliver medications through the pump and stay within the recommendations from the Polyanalgesic Consensus Committee Guidelines. Depending on dose and concentration these pumps may need to be refilled sooner than 3 months as we titrate.
[2023-11-06 14:25] VITALS: BP 119/57; PULSE 70; RESP 18; O2SAT 97; BMI 42.4
== END | disposition home or self-care (01) ==
PROVIDERS: PCP Family Medicine; Visit Provider Nurse Practitioner Family
DX: M51.16 Intervertebral disc disorders with radiculopathy, lumbar region (principal); M96.1 Postlaminectomy syndrome, not elsewhere classified; Z97.8 Presence of other specified devices; Z45.1 Encounter for adjustment and management of infusion pump
CPT/HCPCS: 62368; 99213; G0463

== ENCOUNTER 2023-11-18 09:15 | Day surgery (SDC) | payer MEDICARE, SELFPAY ==
[2023-11-18 09:35] VITALS: BP 127/66; PULSE 88; RESP 16; TEMP 36.4; O2SAT 96; BMI 42.1
[2023-11-18 09:54] VITALS: BP 144/58; PULSE 79; RESP 18; O2SAT 94
[2023-11-18 09:56] VITALS: BP 144/58; PULSE 76; RESP 18; O2SAT 94
--- NOTE | 2023-11-18 09:56 | EXP.PAIN.PRO ---
Procedure Date: 11/18/23 Time: 09:55 Anesthesiologist:: Inderjit Collins CRNA Complications:: None Pre-procedure Diagnosis:: Degenerative disc lumbar spine multilevels. Lumbar radiculopathy. Lumbar postlaminectomy syndrome. Post-procedure Diagnosis:: Same. Indications for Procedure:: Patient is a very pleasant 68-year-old female comes our clinic today for intrathecal pain pump interrogation refill. She is currently being managed with morphine sulfate 1 mg/mL at a rate of 0.2821 mg/day. She is doing very well with her current settings. She not requesting any changes. She does not report any side effects or complications. Procedure Details:: Details of the procedure explained the patient. The patient taken procedure room placed in the sitting position. The area of the pump is cleansed using chlorhexidine's cleansing solution. The pump was interrogated. The pump was accessed with ease using a 22-gauge inch and half needle. 1 mL of solution was withdrawn and discarded appropriately. The pump was then filled with 20 cc of a solution containing morphine sulfate 1 mg/mL. The rate will continue at 0.2821 mg/day. Patient tolerated procedure without difficulty. There are no complications. Plan and Disposition:: Patient was discharged without incident.
[2023-11-18 10:05] VITALS: BP 115/47; PULSE 75; RESP 16; O2SAT 96
== END 2023-11-18 10:05 | disposition home or self-care (01) ==
PROVIDERS: PCP Family Medicine; Visit Provider Nurse Anesthetist, Certified Registered
DX: M51.16 Intervertebral disc disorders with radiculopathy, lumbar region (principal); M96.1 Postlaminectomy syndrome, not elsewhere classified; Z97.8 Presence of other specified devices; Z45.1 Encounter for adjustment and management of infusion pump
CPT/HCPCS: 95991

== ENCOUNTER 2023-12-16 11:03 | Day surgery (SDC) | payer MEDICARE, SELFPAY ==
[2023-12-16 11:17] VITALS: BP 160/71; PULSE 82; RESP 18; TEMP 36.1; O2SAT 97; BMI 42.1
[2023-12-16 11:22] VITALS: BP 152/76; PULSE 79; RESP 18; O2SAT 97
[2023-12-16 11:25] VITALS: BP 152/76; PULSE 77; RESP 18; O2SAT 97
--- NOTE | 2023-12-16 11:31 | EXP.PAIN.PRO ---
Procedure Date: 12/16/23 Time: 11:30 Anesthesiologist:: Inderjit Collins CRNA Complications:: None Pre-procedure Diagnosis:: Degenerative disc lumbar spine multilevels. Lumbar radiculopathy. Lumbar postlaminectomy syndrome. Lumbar spondylosis. Post-procedure Diagnosis:: Same. Indications for Procedure:: Patient is a very pleasant 68-year-old female comes our clinic today for intrathecal pain pump interrogation refill. Patient currently being managed with morphine sulfate 1 mg/mL. Will be changing her to morphine sulfate 2 mg/mL today. Patient currently being managed at a rate of 0.2821 mg/day. Patient now requesting changes. She does not report any side effects or complications with her intrathecal pain pump management. Procedure Details:: Details of the procedure were explained to the patient. The patient taken to procedure room placed in sitting position. The area of the pump is cleansed using chlorhexidine as a cleansing solution. The pump was interrogated. The pump was accessed with ease using a 22-gauge inch and half needle. 10.5 mL of solution was withdrawn and discarded appropriate. The pump was then filled with 20 cc of a solution containing morphine sulfate 2 mg/mL. The rate will continue at 0.28 to 1 mg/day. Patient tolerated procedure without difficulty. There are no complications. Plan and Disposition:: Patient was discharged without incident.
[2023-12-16 11:35] VITALS: BP 136/62; PULSE 76; RESP 16; O2SAT 97
[2023-12-16 17:48] LABS: Barbiturates Screen,Urine Negative ng/ml (<200); Benzodiazepines Screen,Urine Negative ng/ml (<200)
[2023-12-16 17:49] LABS: Cannabinoid Screen,Urine Negative ng/ml (<50)
[2023-12-16 17:50] LABS: Cocaine Screen,Urine Negative ng/ml (<300); Methadone Screen,Urine Negative ng/ml (<300)
[2023-12-16 17:51] LABS: Opiate Screen,Urine Positive ng/ml (<300)
[2023-12-16 17:52] LABS: Phencyclidine Screen,Urine Negative ng/ml (<25)
[2023-12-16 17:55] LABS: Amphetamine/Metha Screen,Urine Negative ng/ml (<1000)
[2023-12-22 00:07] LABS: Codeine Negative (Cutoff=100); Hydrocodone Negative (Cutoff=100); Hydromorphone Negative (Cutoff=100); Morphine Positive (.); Opiates Positive (.)
== END 2023-12-16 11:35 | disposition home or self-care (01) ==
PROVIDERS: Anesthesiology; PCP Family Medicine; Visit Provider Nurse Anesthetist, Certified Registered
DX: M51.16 Intervertebral disc disorders with radiculopathy, lumbar region (principal); M96.1 Postlaminectomy syndrome, not elsewhere classified; M47.26 Other spondylosis with radiculopathy, lumbar region; Z97.8 Presence of other specified devices; Z45.1 Encounter for adjustment and management of infusion pump
CPT/HCPCS: 80307; 80361; 80365; 95991; G0480

== ENCOUNTER 2024-03-02 10:44 | Day surgery (SDC) | payer MEDICARE, SELFPAY ==
[2024-03-02 10:56] VITALS: BP 165/62; PULSE 62; RESP 18; TEMP 36.7; O2SAT 98; BMI 44.1
[2024-03-02 11:31] VITALS: BP 148/78; PULSE 62; RESP 18; O2SAT 97
[2024-03-02 11:32] VITALS: BP 148/78; PULSE 60; RESP 18; O2SAT 96
[2024-03-02 11:48] VITALS: BP 117/51; PULSE 58; RESP 18; O2SAT 98
--- NOTE | 2024-03-02 11:53 | EXP.PAIN.PRO ---
Procedure Date: 03/02/24 Time: 11:30 Anesthesiologist:: Inderjit Collins CRNA Complications:: None Pre-procedure Diagnosis:: Degenerative disc lumbar spine multilevels. Lumbar radiculopathy. Lumbar postlaminectomy syndrome. Post-procedure Diagnosis:: Same. Indications for Procedure:: Patient is a very pleasant 68-year-old female comes our clinic today for intrathecal pain pump interrogation refill. Patient currently being managed with morphine sulfate 2 mg/mL at a rate of 0.2821 milligrams per day. Patient doing very well with her current settings. She is not reporting side effects or complications. She not requesting any changes. Procedure Details:: Details of the procedure explained to the patient. The patient taken procedure room placed in sitting position. The area of the pump was cleansed using chlorhexidine's cleansing solution. The pump was interrogated. The pump was accessed with ease using 22-gauge inch and half needle. 7.5 mL of solution was withdrawn discarded appropriate. The pump was then filled with 20 cc of solution containing morphine sulfate 2 mg/mL. No change will be made in the intrathecal pain pump rate. Patient tolerated procedure without difficulty. There are no complications. Plan and Disposition:: Patient was discharged without incident.
== END 2024-03-02 11:48 | disposition home or self-care (01) ==
LOC: SC.PAINP 10:45
PROVIDERS: PCP Family Medicine; Visit Provider Nurse Anesthetist, Certified Registered
DX: M51.16 Intervertebral disc disorders with radiculopathy, lumbar region (principal); M96.1 Postlaminectomy syndrome, not elsewhere classified; Z97.8 Presence of other specified devices; Z45.1 Encounter for adjustment and management of infusion pump
CPT/HCPCS: 95991

== ENCOUNTER 2024-04-08 13:28 | Outpatient (CLI) | payer MEDICARE, SELFPAY ==
--- NOTE | 2024-04-08 13:41 | US_ITS ---
FINAL REPORT CLINICAL HISTORY: hypothyroidism COMPARISON: 04/02/2023 FINDINGS: Sonographic images of the thyroid gland were obtained. The right thyroid lobe measures 4.1 cm. in length. The left thyroid lobe measures 3.9 cm. in length. The thyroid isthmus measures 0.3 cm. The echogenicity is normal. Left 7 x 7 x 4 mm solid isoechoic TR 3 nodule, was 9 x 7 x 7 mm. Left 4 x 4 x 4 mm cystic TR 1 nodule. IMPRESSION: Left TR 1 and TR 3 nodules. No follow-up recommended per TI-RADS criteria. Reviewed, Interpreted and Dictated by Feliz Allen III, MD Transcribed by Julienne Bee Authenticated and [facility][1]
== END 2024-04-08 23:59 | disposition home or self-care (01) ==
LOC: RAD 13:33
PROVIDERS: PCP Family Medicine; Visit Provider Nurse Practitioner
DX: E03.9 Hypothyroidism, unspecified (principal)
CPT/HCPCS: 76536

== ENCOUNTER 2024-04-22 14:15 | Outpatient (CLI) | payer MEDICARE, SELFPAY ==
[2024-04-22 14:42] LABS: Basophils # 0.1 K/mm3 (0-0.2); Basophils % 1.1 % (0.1-2.0); Eosinophils # 0.2 K/mm3 (0.0-0.4); Eosinophils % 2.4 % (0.1-12.0); Hematocrit 40.4 % (37.0-47.0); Hemoglobin 13.6 g/dL (12.2-16.2); Lymphocytes # 2.7 K/mm3 (0.7-4.5); Lymphocytes % 40.1 % (10-50); Mean Corpuscular HGB Conc 33.6 g/dL (31.8-35.4); Mean Corpuscular Hemoglobin 28.3 pg (27.0-31.2); Mean Corpuscular Volume 84.4 fl (81-99); Mean Platelet Volume 7.1 fl (7.4-10.4); Monocytes # 0.3 K/mm3 (0.1-1.0); Monocytes % 4.3 % (1.7-9.3); Neutrophils # 3.5 K/mm3 (1.8-7.8); Neutrophils % 52.2 % (37.0-80.0); Platelet Count 199 K/mm3 (142-424); Red Blood Count 4.78 M/mm3 (4.20-5.40); White Blood Count 6.7 K/mm3 (4.8-10.8)
[2024-04-22 15:29] LABS: Alanine Aminotransferase 28 U/L (12-78); Albumin Level 3.7 g/dl (3.5-5.0); Albumin/Globulin Ratio 1.3 (1.1-1.8); Alkaline Phosphatase 78 U/L (38-126); Anion Gap 10.9 mEq/L (5-15); Aspartate Amino Transferase 31 U/L (14-36); Bilirubin,Total 0.6 mg/dl (0.2-1.3); Blood Urea Nitrogen 10 mg/dl (7-17); Calcium 9.5 mg/dl (8.4-10.2); Carbon Dioxide 30 mmol/L (22.0-30.0); Chloride 102 mmol/L (98-107); Estimated Glomerular Filt Rate 83 ml/min (>60); GFR (African American) 100 ML/MIN (>60); Globulin 2.9 g/dL (1.3-3.2); Glucose 129 mg/dl (74-100); Potassium 3.9 mmoL/L (3.5-5.1); Sodium 139 mmol/L (136-145); Total Protein,Serum 6.6 g/dl (6.3-8.2)
[2024-04-22 15:59] LABS: Thyroid Stimulating Hormone 1.61 uIU/mL (0.465-4.68)
[2024-04-22 17:58] LABS: Ferritin 49.7 ng/ml (11.1-264)
[2024-04-22 18:50] LABS: Hemoglobin A1C 5.5 % (4.0-6.0)
[2024-04-24 08:17] LABS: Estradiol 21.3 pg/mL (0.0-54.7); FSH 48.5 mIU/mL (25.8-134.8)
[2024-05-07 01:08] LABS: 1,25 Dihydroxy Vitamin D 55 pg/mL (.); 1,25-Dihydroxy, Vitamin D-2 <10 pg/mL (.); 1,25-Dihydroxy, Vitamin D-3 55 pg/mL (.)
== END 2024-04-22 23:59 | disposition home or self-care (01) ==
LOC: LAB 14:18
PROVIDERS: PCP Family Medicine; Visit Provider Obstetrics & Gynecology
DX: L65.8 Other specified nonscarring hair loss (principal); Z79.899 Other long term (current) drug therapy; E66.9 Obesity, unspecified; Z68.41 Body mass index [BMI] 40.0-44.9, adult
CPT/HCPCS: 36415; 80050; 80053; 82652; 82670; 82728; 83001; 83036; 84443; 85025

== ENCOUNTER 2024-05-18 10:29 | Day surgery (SDC) | payer MEDICARE, SELFPAY ==
[2024-05-18 10:59] VITALS: BP 114/40; PULSE 67; RESP 18; TEMP 36.6; O2SAT 96; BMI 44.4
[2024-05-18 11:09] VITALS: BP 137/41; PULSE 70; RESP 18; O2SAT 95
[2024-05-18 11:10] VITALS: BP 137/41; PULSE 73; RESP 18; O2SAT 95
[2024-05-18 11:21] VITALS: BP 113/54; PULSE 65; RESP 18; TEMP 36.7; O2SAT 97
--- NOTE | 2024-05-18 11:24 | EXP.PAIN.PRO ---
Procedure Date: 05/18/24 Time: 11:15 Anesthesiologist:: Inderjit Collins CRNA Complications:: None Pre-procedure Diagnosis:: Degenerative disc lumbar spine multilevels. Lumbar radiculopathy. lumbar postlaminectomy syndrome Post-procedure Diagnosis:: Same. Indications for Procedure:: Very pleasant 68-year-old female comes our clinic today for intrathecal pain pump interrogation refill. Patient currently being managed with morphine sulfate 2 mg/mL at a rate of 0.2821 mg/day. Patient doing well with her current settings. She is not reporting side effects or complications. She rates her pain today 4/10. Procedure Details:: Details of the procedure explained to the patient. The patient taken procedure and placed in sitting position. The area with pumps cleansed using chlorhexidine's cleansing solution. The pump was interrogated. The pump was accessed with ease using a 22-gauge inch and half needle. 8 mL of solution was withdrawn discarded appropriate. The pump was then filled with 20 cc of solution containing morphine sulfate 2 mg/mL. The pump was then filled with 20 cc of solution containing morphine sulfate 2 mg/mL. The pump rate will continue at 0.2812 Plan and Disposition:: Patient was discharged without incident.
== END 2024-05-18 11:16 | disposition home or self-care (01) ==
LOC: SC.PAINP 10:30
PROVIDERS: PCP Family Medicine; Visit Provider Nurse Anesthetist, Certified Registered
DX: Z79.891 Long term (current) use of opiate analgesic (principal); M51.36 Other intervertebral disc degeneration, lumbar region; M51.16 Intervertebral disc disorders with radiculopathy, lumbar region; M96.1 Postlaminectomy syndrome, not elsewhere classified; G89.29 Other chronic pain
CPT/HCPCS: 95991

== ENCOUNTER 2024-06-21 15:25 | Outpatient (CLI) | payer MEDICARE, SELFPAY ==
--- NOTE | 2024-06-21 15:29 | XR_ITS ---
FINAL REPORT CLINICAL HISTORY: abnl ecg/edema of lower extremities/dyspnea FINDINGS: 2 views of the chest were obtained . The heart is normal in size. The mediastinum is within normal limits. The lungs are clear. There is no pneumothorax. Osseous structures are unremarkable. IMPRESSION: No acute cardiopulmonary process. Reviewed, Interpreted and Dictated by Edgardo Valencia MD Transcribed by Gem Ward Authenticated and . [facility]
[2024-06-21 16:59] LABS: NT Pro Brain Natriuretic Pep. 55.2 pg/mL (0-125)
== END 2024-06-21 23:59 | disposition home or self-care (01) ==
LOC: LAB 15:26
PROVIDERS: PCP Nurse Practitioner; Visit Provider Physician Assistant
DX: R06.00 Dyspnea, unspecified (principal); G47.33 Obstructive sleep apnea (adult) (pediatric); R60.0 Localized edema; R94.31 Abnormal electrocardiogram [ECG] [EKG]
CPT/HCPCS: 36415; 71046; 83880

== ENCOUNTER 2024-07-01 10:58 | Outpatient (CLI) | payer MEDICARE, SELFPAY ==
--- NOTE | 2024-07-01 11:01 | CA_ITS ---
APPROVED REPORT EXAM: Comprehensive 2D, Doppler, and color-flow Echocardiogram Warehouse Engineer: Elena Ho RVT Ht: 5 ft 1 in Wt: 235lbs BSA: 2.02 BP: 125/71 mmHg Indications: EDEMA,ABN EKG,DYSPENA,JODY TDS-LIMITED WINDOWS AND PT BODY HABITUS 2D Dimensions IVSd 1.03 cm F: 0.6-1.0 LVEF (Visual) 69.90 % PWd 0.87 cm F: 0.6 - 1.0 LA Volume 38.10 mL LVDd 3.87 cm F: 3.9 - 5.3 LA Volume Index 18.86 mL/m2 (M/F) 16-34 LVDs 2.37 cm F: 2.2 - 3.5 M-Mode Dimensions LA Diam 3.87 cm (1.9-4.0) LV Diastology E Decel Time 197 (160-240 msec) E/A Ratio 0.9 Aortic Valve TATY Index 1.30 cm2/m2 AoV Peak Johny. 134.0 (50-130 cm/s) AO Peak GR. 7.20 mmHg AO Mean GR. 3.70 (<5 mmHg) AO VTI 27.2 (18-25 cm) TATY (VTI) 2.69 (2.5-4.5 cm2) Mitral Valve MV E Max Johny. 80.0 (40-130 cm/s) MV A Velocity 91.0 (40-130 cm/s) E/A Ratio 0.87 MV PHT 58.0 ms Pulmonary Valve PV Peak Velocity 95.0 (50-150 cm/s) Tricuspid Valve TR P. Velocity 227.00 cm/s RAP Estimate 10.00 mmHg RVSP 30.70 mmHg Left Ventricle The left ventricle is normal size. The left ventricular systolic function is normal. The left ventricular ejection fraction is within the normal range. There is increased LV wall thickness. There is normal LV segmental wall motion. The left ventricular diastolic function is normal. LVEF is 55%. Right Ventricle The right ventricle is mildly dilated. The right ventricular systolic function is normal. Atria The left atrium is mildly dilated. The right atrium is mildly dilated. There is no Doppler evidence of interatrial shunt. Aortic Valve The aortic valve is mildly thickened. There is no aortic valvular stenosis. No aortic regurgitation is present. Mitral Valve The mitral valve is normal in structure. No evidence of mitral valve stenosis. Trace mitral valve regurgitation noted. Tricuspid Valve The tricuspid valve leaflets are thin and pliable. Trace tricuspid regurgitation. There is insufficient TR jet to estimate RVSP. Pulmonic Valve The pulmonary valve is normal in structure. Trace pulmonic regurgitation. Great Vessels The aortic root is normal in size. The ascending aorta is not well-visualized. IVC is normal in size and collapses >50% with inspiration. Pericardium There is no pericardial effusion. Other Information Study Quality: Fair Conclusion Normal biventricular systolic function. Mild RV dilation. Mild biatrial dilatation. No significant valvular stenosis or regurgitation. Electronically signed by : Leeann Perez MD 07/07/2024 11:20:52
== END 2024-07-01 23:59 | disposition home or self-care (01) ==
LOC: RT 11:00
PROVIDERS: PCP Family Medicine; Visit Provider Physician Assistant
DX: R06.00 Dyspnea, unspecified (principal); R94.31 Abnormal electrocardiogram [ECG] [EKG]; R60.0 Localized edema; G47.33 Obstructive sleep apnea (adult) (pediatric)
CPT/HCPCS: 93306

== ENCOUNTER 2024-08-10 09:38 | Day surgery (SDC) | payer MEDICARE, SELFPAY ==
[2024-08-10 09:59] VITALS: BP 128/70; PULSE 75; RESP 16; TEMP 36.9; O2SAT 97; BMI 44.1
[2024-08-10 10:26] VITALS: BP 139/53; PULSE 77; RESP 18; O2SAT 95
[2024-08-10 10:29] VITALS: BP 139/53; PULSE 77; RESP 18; O2SAT 95
[2024-08-10 10:38] VITALS: BP 136/71; PULSE 70; RESP 16; O2SAT 96
--- NOTE | 2024-08-10 11:00 | P.PCN_ITS ---
Procedure Date: 08/10/24 Time: 10:40 Anesthesiologist:: Inderjit Collins CRNA Complications:: None Pre-procedure Diagnosis:: Degenerative disc lumbar spine multilevels. Lumbar radiculopathy. Lumbar postlaminectomy syndrome. Post-procedure Diagnosis:: Same. Indications for Procedure:: Patient is a very pleasant 68-year-old female who comes our clinic today for intrathecal pain pump interrogation refill. Patient currently being managed with morphine sulfate 2 mg/mL at a rate of 0.2821 mg/day. Patient doing very well with her current settings. She is not reporting side effects or complications. She not requesting changes. Patient was awake alert [place] x 3. No acute distress. Flexion-extension lumbar spine somewhat guarded secondary to pain. Deep tendon reflexes upper lower extremities normal. Motor strength upper and lower extremities normal. There is no gross sensory deficit. Gait is antalgic. She requires a scooter. Procedure Details:: Details of the procedure explained to the patient. The patient taken procedure room placed in sitting position. The area over the pump was cleansed using chlorhexidine as a cleansing solution. The pump was interrogated. The pump was accessed with ease using a 22-gauge inch and a half needle. 7 mL of solution was withdrawn discarded appropriately. The pump was then filled with 20 cc of solution containing morphine sulfate 2 mg/mL. The rate will continue at 0.2821 mg/day. Patient tolerated procedure without difficulty. There are no complications. Plan and Disposition:: Patient was discharged without incident.
== END 2024-08-10 10:38 | disposition home or self-care (01) ==
PROVIDERS: PCP Family Medicine; Visit Provider Nurse Anesthetist, Certified Registered
DX: M51.16 Intervertebral disc disorders with radiculopathy, lumbar region (principal); M96.1 Postlaminectomy syndrome, not elsewhere classified
CPT/HCPCS: 95991

== ENCOUNTER 2024-10-15 10:01 | Day surgery (SDC) | payer MEDICARE, SELFPAY ==
--- NOTE | 2024-10-15 10:52 | EXP.PAIN.PRO ---
Procedure Date: 10/15/24 Time: 11:52 Anesthesiologist:: Suzi Renee APRN Complications:: None Pre-procedure Diagnosis:: Degenerative disc disease of lumbar spine with lumbar radiculopathy symptoms Post-procedure Diagnosis:: Same Indications for Procedure:: Patient is a pleasant 69-year-old female who presents today for intrathecal refill and reprogram. Today she rates her pain a 4 out of 10. Patient states that she did just have a slip in her yard a couple of days ago because of the wet grass. Patient states she is a little bit more sore along her right side but denies any significant injury. She is currently managed with morphine 2 mg/mL with a daily dose of 0.2821 mg/day. She denies any side effects from this medication.Patient is prescribed clonazepam from an outside provider. Her Lc has been reviewed and is appropriate. Physical Exam: General: Alert and oriented x3, no acute distress, pleasant and cooperative Lungs: Respirations even and unlabored, symmetrical chest expansion Eyes: PERRL Musculoskeletal: Flexion and extension of lumbar [spine] somewhat guarded secondary to pain, [antalgic gait noted] Neurological: Speech clear, no gross sensory deficit Procedure Details:: Informed consent was obtained and the risk and benefits of the procedure were explained to the patient. The patient had noninvasive monitoring placed including noninvasive blood pressure cuff and pulse oximeter. Patient's pump was interrogated. The area over the pump was cleansed with chlorhexidine as a cleansing solution. In sterile fashion the pump was accessed with a 22-gauge needle. Approximately 9 mls of the pump solution was removed and discarded appropriately. The pump was then refilled with 20 mL's of morphine 2 mg/mL. The needle was withdrawn and a bandage was placed over the puncture site. The infusion rate was reprogrammed and morphine 0.2821 mg/day. The patient tolerated well with no complication. Plan and Disposition:: Patient tolerated her intrathecal refill and reprogram with no complications and was discharged neurologically intact. Patient will return to clinic for her next intrathecal refill date. We will see the patient back in the clinic at the next intrathecal refill. Patient has been instructed to contact the clinic with any concerns before the next appointment. Dr. Miles has reviewed this note and agrees with this plan of care. This note was dictated using voice recognition software and make contain errors or omissions. -- It Is medically necessary for this patient to continue to have their intrathecal pump refilled at regular intervals. This patient had an intrathecal pain pump implanted after meeting criteria of chronic intractable pain for greater than 3 months and failing conservative treatments. Patient has committed and been compliant to the treatment plan and all planned follow up care. Since implantation of the intrathecal pain pump, the patient has had decreased pain and been more functional. Oral medications have been reduced including intake of oral opioids. Patient continues to do well with intrathecal therapy with decrease in pain symptoms and increase in functional status. Stopping intrathecal medications can lead to life threatening withdrawal, seizures, cardiac arrest, severe pain, and possible . Pumps that are not refilled at regular intervals can be damages and cause and need for replacement. We continually titrate dose and concentration to optimize pain relief and function. We are limited in concentration for certain drugs to safely deliver medications through the pump and stay within the recommendations from the Polyanalgesic Consensus Committee Guidelines. Depending on dose and concentration these pumps may need to be refilled sooner than 3 months as we titrate. A UDS is needed to verify patient's compliance with our office pain contract. This is ordered based off specific treatments related to chronic pain with the potential to abuse certain medications.
[2024-10-15 11:19] VITALS: BP 149/75; PULSE 80; RESP 16; O2SAT 96; BMI 44.4
[2024-10-15 11:40] VITALS: BP 137/64; PULSE 69; RESP 16; O2SAT 95
[2024-10-15 11:47] VITALS: BP 137/64; PULSE 69; RESP 16; O2SAT 94
[2024-10-15 11:58] VITALS: BP 115/73; PULSE 69; RESP 16; O2SAT 100
== END 2024-10-15 11:58 | disposition home or self-care (01) ==
PROVIDERS: PCP Family Medicine; Visit Provider Nurse Practitioner Family
DX: M51.16 Intervertebral disc disorders with radiculopathy, lumbar region (principal)
CPT/HCPCS: 62370

== ENCOUNTER 2024-11-11 14:21 | Outpatient (CLI) | payer MEDICARE, SELFPAY ==
--- NOTE | 2024-11-11 14:27 | XR_ITS ---
FINAL REPORT CLINICAL HISTORY: PAIN COMPARISON: None FINDINGS: 3 views show no evidence of acute displaced fracture or dislocation of the visualized bony architecture. There are moderate degenerative changes. Chondrocalcinosis is noted. There is a benign-appearing cystic lesion of the humeral head. IMPRESSION: Degenerative changes without acute abnormality. Reviewed, Interpreted and Dictated by Denis Higgins MD Transcribed by Shira Whitman Authenticated and [facility]
--- NOTE | 2024-11-11 14:27 | XR_ITS ---
FINAL REPORT CLINICAL HISTORY: PAIN COMPARISON: None FINDINGS: 3 views of the left ribs show a nondisplaced fracture of the anterior left fifth rib. No other rib fracture fractures are identified. There is no pneumothorax or pleural fluid collection. Frontal chest radiograph is unremarkable. IMPRESSION: Left fifth rib fracture. Reviewed, Interpreted and Dictated by Denis Higgins MD Transcribed by Shira Whitman Authenticated and . [facility]
== END 2024-11-11 23:59 | disposition home or self-care (01) ==
LOC: RAD 14:22
PROVIDERS: PCP Family Medicine; Visit Provider Nurse Practitioner Family
DX: M25.511 Pain in right shoulder (principal); S22.32XA Fracture of one rib, left side, initial encounter for closed fracture
CPT/HCPCS: 71101; 73030

== ENCOUNTER 2024-12-01 11:37 | Emergency (ER) | payer MEDICARE, SELFPAY ==
--- NOTE | 2024-12-01 11:41 | XR_ITS ---
FINAL REPORT CLINICAL HISTORY: PAIN FINDINGS: Right knee Three views were obtained. There is no fracture or dislocation. There is moderate to advanced medial compartment and patellofemoral joint space narrowing. Osteophytes are seen along the undersurface of the patella. No soft tissue abnormality is identified. IMPRESSION: Significant degenerative changes as above. Reviewed, Interpreted and Dictated by Edgardo Valencia MD Transcribed by Jessie Romero Authenticated and [facility]
[2024-12-01 12:45] VITALS: BP 123/75; PULSE 76; RESP 19; TEMP 36.8; O2SAT 98; BMI 39.4
--- NOTE | 2024-12-01 12:59 | ED_ITS ---
Discharge Plan Disposition Patient Disposition: Home, Self-Care Condition: Good Prescriptions Prescriptions: No Action montelukast 10 mg tablet 10 mg PO DAILY Patient Comments: TAKE ONE TABLET BY MOUTH EVERY DAY fluticasone propionate 50 mcg/actuation spray,suspension 50 mcg intranasal DAILY Patient Comments: instill 2 SPRAYS IN EACH NOSTRIL EVERY DAY cholecalciferol (vitamin D3) 1,250 mcg (50,000 unit) capsule 50,000 unit PO WEEKLY Patient Comments: TAKE ONE CAPSULE BY MOUTH TWICE A WEEK atomoxetine 80 mg capsule 80 mg PO ONCE Patient Comments: TAKE ONE CAPSULE BY MOUTH EVERY DAY spironolactone 25 mg tablet 25 mg PO DAILY Qty: 30 2RF levothyroxine [Synthroid] 50 mcg tablet 50 mcg PO DAILY Qty: 90 3RF clonazepam 0.5 MG tablet 0.5 mg PO BID omeprazole 40 MG capsule,delayed release(DR/EC) 40 mg PO DAILY atorvastatin 20 MG tablet 20 mg PO HS morphine (PF) 1 mg/mL Solution 0.105 mg continuous epidural CONT Rx Instructions: medication delivered via intrathecal pain pump . total volume of pump is 20ml Referrals Follow up/Referrals: Ambika Sanchez MD [Primary Care Provider] - See instructions Marcel Renee DO [Staff Physician] - See instructions Activity Restrictions/Add. Instructions Additional Instructions/Restrictions: Follow up with your Family Doctor or Orthopedics for further imaging and examination Over the counter Motrin and/or Tylenol if you can take it Votaran gel over the counter rub may help with discomfort Clinical Impressions Clinical Impression: Knee pain Instructions Patient Instructions: How To Perform RICE (Rest, Ice, Compress, Elevate), Ibuprofen, Acetaminophen Print Language Print Language: Portuguese Discharge ED Provider: Catherine Batista [facility] General Stated complaint: pain w/bulging knot of right knee Mode of Arrival: Ambulatory Source of Information: Patient and Relative Limitations: No Limitations Time Seen by Provider: 12/01/24 12:59 Description of Symptoms (Recalled from Triage Doc. by RN): PATIENT C/O SWELLING TO RIGHT KNEE X 2 DAYS, NO KNOWN INJURY HEENT Symptoms (Recalled from RN notes): No Resp Symptoms (Recalled from RN notes): No Skin Symptoms (Recalled from RN notes): No MS Symptoms (Recalled from RN notes): Yes Functional Status (Recalled from RN notes): WNL History of Present Illness Provider Complaint: Patient states that she has been having pain in her right knee for several day and feels like the bone is rubbing and feels like she has a hard knot there Denies known injury Denies any redness or warmth Related Data Home Medications ?Medication ?Instructions ?Recorded ?Confirmed clonazepam 0.5 mg tablet 0.5 mg PO BID NERVE TICK 02/26/19 11/23/24 omeprazole 40 mg capsule,delayed 40 mg PO DAILY GERD 02/26/19 11/23/24 release atorvastatin 20 mg tablet 20 mg PO HS Cholesterol 08/20/21 11/23/24 morphine (PF) 1 mg/mL injection 0.105 mg continuous epidural CONT 05/19/23 11/23/24 solution chronic pain fluticasone propionate 50 50 mcg intranasal DAILY 04/15/24 11/23/24 mcg/actuation nasal spray,suspension montelukast 10 mg tablet 10 mg PO DAILY 04/15/24 11/23/24 cholecalciferol (vitamin D3) 1,250 50,000 unit PO WEEKLY 04/22/24 11/23/24 mcg (50,000 unit) capsule atomoxetine 80 mg capsule 80 mg PO ONCE 11/23/24 11/23/24 Previous Rx's ?Medication ?Instructions ?Recorded levothyroxine 50 mcg tablet 50 mcg PO DAILY hypothyroidism #90 06/01/24 (Synthroid) tabs spironolactone 25 mg tablet 25 mg PO DAILY #30 tabs 11/23/24 Allergies Allergy/AdvReac Type Severity Reaction Status Date / Time amoxicillin (From TRIMOX) Allergy Unknown Verified 11/23/24 11:13 Penicillins (PENICILLINS) Allergy Unknown Verified 11/23/24 11:13 Worker's Comp Is this a Worker's Comp case?: No [facility] Disclaimer: The information contained in this section may have been updated after the patient was seen, as this information can be updated by other users. Medical History (Updated 12/01/24 @ 13:12 by Catherine Batista APRN) Fatigue Wound of left lower extremity Obstructive sleep apnea Edema of both lower extremities Abnormal electrocardiogram [ECG] [EKG] Other specified nonscarring hair loss Hypothyroidism Thyroid Nodule Thickened endometrium Cataract History of hypertension Pelvic pain Adjustment disorder Edema Osteoarthritis History of back pain Surgical History Hx of cataract removal with insertion of prosthetic lens Hx of breast reduction, elective Hx of tonsillectomy Hx of cholecystectomy History of back surgery History of carpal tunnel surgery Hx of rotator cuff surgery Hx of dilation and curettage Status post lumbar spinal fusion Family History Other Cancer Diabetes Hypertension Social History Smoking Status: Never smoker smoking status stop date: 1992 second hand exposure: Yes alcohol intake: never substance use type: denies use current occupational status: retired Travel in the last 8 weeks: None household members: spouse housing: house lives independently: No marital status: education level: high school service: No mcfp: No current occupational exposures/hazards: No pets and animals: Yes pets and animals: dog(s) sexually active: No caffeine: No do you feel safe at home: Yes victim of physical abuse: No victim of emotional abuse: No victim of sexual abuse: No would you like helpful sources: No Have you lived/traveled outside [place] in past 30 days?: No Contact w/someone who lives/traveled outside US past 30 days?: No Exposure to someone with infectious disease in past 14 days?: No Do you have a fever (greater than 100.4 F or 38 C)?: No Have you tested positive for COVID-19: No Exposed to someone with COVID-19 in past 14 days?: No Do you have a sore throat?: No Do you have a cough?: No Do you have any weakness?: No Do you have any diarrhea?: No Are you experiencing any unusual bleeding?: No Do you have any muscle aches/pain?: No Do you have any abdominal pain?: No Are you experiencing loss of taste or smell?: No ROS Obtained: Yes All systems reviewed & no additional complaints except as documented and Yes Systems reviewed as appropriate & no additional complaints except as documented Constitutional Constitutional: Reports system reviewed and no additional complaints, except as documented and Reports as per HPI ENT Ears, Nose, Mouth, and Throat: Reports system reviewed and no additional complaints, except as documented and Reports as per HPI Cardiovascular Cardiovascular: Reports system reviewed and no additional complaints, except as documented and Reports as per HPI Respiratory Respiratory: Reports system reviewed and no additional complaints, except as documented and Reports as per HPI Gastrointestinal Gastrointestingal: Reports system reviewed and no additional complaints, except as documented and as per HPI Musculoskeletal Musculoskeletal: Reports system reviewed and no additional complaints, except as documented, Reports as per HPI and Reports other Comments: right knee pain x 2 days denies known injury Physical Exam General General appearance: alert and in no apparent distress ENT ENT exam: Present mucous membranes moist Respiratory Respiratory exam: Present normal lung sounds bilaterally; Absent respiratory distress or wheezes Cardiovascular Cardiovascular exam: Present regular rate, normal rhythm and normal heart sounds Abdominal Exam Abdominal exam: Present soft and normal bowel sounds; Absent distention or tenderness Expanded Lower Extremity Exam Right: Knee exam: Present tenderness; Absent swelling, abrasion, laceration, ecchymosis, deformity, dislocation, erythema or effusion Lower leg exam: Absent tenderness, swelling, abrasion or ecchymosis Gait: not tested/not observed Neurological Exam Neurological exam: Present alert, oriented X3 and normal gait Medical Decision Making Medical Records Screening: Per USPSTF and CDC recommendations, given the prevalence of disease in our region, it is our hospital?s policy to screen for HIV and viral Hepatitis for all patients aged 18 and over and those with ongoing risk factors. Lc Inquiry Pt receiving controlled substance: No Lc was queried for this patient: No Vital Signs: 12/01/24 12:45 Temperature 98.3 F Temperature Source Oral Pulse Rate [Left Brachial] 76 Respiratory Rate 19 Blood Pressure [Left Arm] 123/75 Blood Pressure Mean [Left Arm] 91 Blood Pressure Source [Left Arm] Automatic Cuff Blood Pressure Position [Left Arm] Sitting 02 Sat by Pulse Oximetry 98 Oxygen Delivery Method Room Air Orders (Tests/Meds): ORDERS Category Date Time Status XR knee RT 3V Stat Exams 12/01/24 11:41 Completed Radiology Data #1: Image(s): Knee Image Reviewed: Yes I have reviewed radiologist's interpretation IMPRESSION: Significant degenerative changes as above.
[2024-12-01 13:15] VITALS: BP 123/75; PULSE 76; RESP 19; TEMP 36.8; O2SAT 98
== END 2024-12-01 13:16 | disposition home or self-care (01) ==
PROVIDERS: Emergency Provider Nurse Practitioner; PCP Family Medicine
DX: M25.561 Pain in right knee (principal)
CPT/HCPCS: 73562; 99212; G0381

== ENCOUNTER 2024-12-02 09:09 | Outpatient (CLI) | payer MEDICARE, SELFPAY ==
[2024-12-02 07:51] VITALS: BMI 42.9
--- NOTE | 2024-12-02 09:10 | CT_ITS ---
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 A noncontrast coronary calcium scan was performed. A CT attenuation threshold of 130 Hounsfield units (HU) was used for the detection of calcium in contiguous voxels of 1 sq mm in area to be counted as individual lesions. Bolus tracking in the ascending aorta with a threshold of 180 HU was performed. Immediately afterwards, ECG synchronized cardiac CT was then performed from the cardiac base to apex using retrospective gating with ECG tube current modulation. A total of 85 mL of Isovue 370 mg/mL contrast medium was administered at 5 mL/sec followed by a saline flush using a biphasic injection protocol. A tube voltage of 120 KVp was used. The average heart rate at the time of acquisition was 56 bpm and regular. Image Reconstruction Transaxial images were reconstructed at 0.67 mm slide thickness. Data was reviewed interactively on an advanced workstation capable of 2 and 3-dimensional displays in all conventional reconstruction formats, including multiplanar reformations, maximum intensity projections, curved multiplanar reformations, and volume rendered reconstructions. When applicable, selected routine images describing the relevant coronary anatomy and pathology were saved and sent to PACS. Complications None Technical Quality Overall image quality was fair. Coronary artery opacification was adequate. Total DLP (Dose-Length Product) is 2739.0 mGy-cm. The reported value represents the total of one or more individual components during the CT acquisition of this date and at this time, and as such, the same value may appear in more than one CT report depending on the interpreting/reporting physicians. COMPARISON None FINDINGS CT Coronary Calcium Scoring LMA (Left Main Artery) = 0 LAD (Left Anterior Descending) = 45 LCX (Left Coronary Circumflex) = 50 RCA (Right Coronary Artery) = 6 Total Calcium Score = 101 using the AJ-130 method. The observed calcium score of 101 is at 43rd percentile for subjects of the same age, sex, and race/ethnicity. The interpretation of the calcium heart score is based on the following continuum*: 0 = no calcified plaque detected (risk of coronary artery disease is very low ??? less than 5%) 1-10 = calcium detected in extremely minimal levels (risk of coronary diseases is still low ??? less than 10%) 11-100 = mild levels of plaque detected with certainty (mild or minimal narrowing of heart arteries is likely) 101-400 = definite,at least moderate levels of plaque detected (relatively high risk of a heart attack within 3-5 years) >401-999 = extensive levels of plaque detected (high risk of heart attack, high levels of vascular disease are present, high likelihood of at least one significant coronary narrowing) *The calcium heart score quantifies the burden of coronary calcification/plaque in the coronary arteries. The calcium heart score is not able to evaluate the presence or burden of non-calcified (i.e. soft) plaque. There is mild calcification in the ascending, transverse, and descending thoracic aorta. Coronary CT Angiography The coronary arterial system is right dominant. Quantitative Stenosis Grading: Left Main (LM): The left main originates normally from the left sinus of Valsalva. The LM bifurcates into the left anterior descending artery and left circumflex artery. The LM is patent with no evidence of atherosclerosis. Left Anterior Descending (LAD) and Diagonal Branches: The LAD gives off diagonal branch(es). There is mixed calcified/noncalcified plaque in the proximal LAD segment, with up to 50-70% luminal stenosis. There is no evidence of LAD-myocardial bridge. Left Circumflex (LCX) and Obtuse Marginals (OM): The LCX gives off 1 Obtuse Marginal (OM) branch(es). There is mixed calcified/noncalcified plaque in the proximal LCx, with < 25% luminal stenosis. Right Coronary Artery (RCA): The RCA originates normally from the right sinus of Valsalva. The RCA gives off a posterior descending artery (PDA) and posterolateral (PL) branches. There is mixed calcified/noncalcified plaque in the proximal and mid RCA segments, with up to 50-70% luminal stenosis in the mid-segment. Non-Coronary Cardiac Findings: Analysis of the left ventricular (LV) structure and function was performed after 3-D reconstruction of the LV from axial images, with user-corrected automatic contouring for assessment of LV volumes and user-defined reconstruction from oblique planes for measurement of 3-D cardiac structure and function. -The left ventricle systolic function is normal. -There is no left atrial appendage filling defect. Two right pulmonary veins and two left pulmonary veins drain normally into the left atrium. -No pericardial thickening or calcification. -Central and branch pulmonary arteries in the [id number] are unremarkable. -Thoracic aorta within the visualized thoracic aortic-branches in the [id number] is unremarkable. Extracardiac Structures No significant extra-cardiac findings. Note, however, that this study is focused on the cardiac findings. IMPRESSION -Fair image quality. -Presence of coronary calcification with an Agatston score = 101 using the AJ-130 method. -The observed calcium score of 101 is at 43rd percentile for subjects of the same age, sex, and race/ethnicity. -Moderate coronary disease with possible evidence of significant flow-limiting atherosclerosis of the proximal LAD, mid RCA, or both. -CAD-RADS 3. Management recommendations per ACC/AHA guidelines*, as clinically appropriate. *Recommendations: CAD RADS 0: Reassurance. Consider non-atherosclerotic causes of chest pain. CAD RADS 1: Consider non-atherosclerotic causes of chest pain. Consider preventive therapy and risk factor modification. CAD RADS 2: Consider non-atherosclerotic causes of chest pain. Consider preventive therapy and risk factor modification, particularly for patients with nonobstructive plaque in multiple segments. CAD RADS 3: Consider further functional testing. Consider symptom-guided anti-ischemic and preventive pharmacotherapy as well as risk factor modification per published guideline statements. CAD RADS 4A: Consider further functional testing or invasive coronary angiography with revascularization per published guideline statements. Consider symptom-guided anti-ischemic and preventive pharmacotherapy as well as risk factor modification per published guideline statements. CAD RADS 4B: Invasive coronary angiography recommended with revascularization per published guideline statements. Consider symptom-guided anti-ischemic and preventive pharmacotherapy as well as risk factor modification per published guideline statements. CAD RADS 5: Consider invasive angiography and/or viability assessment with revascularization per published guideline statements. Consider symptom-guided anti-ischemic and preventive pharmacotherapy as well as risk factor modification per published guideline statements. CRITICAL RESULT None COMMUNICATION Per this written report The coronary and cardiac findings of this CCTA were reviewed, reported, and signed by Devon Perez MD (Drivability Technician) Conclusion Electronically signed by : Leeann Perez MD 12/06/2024 12:44:50
[2024-12-02 09:20] VITALS: BP 120/67; PULSE 77; RESP 18; TEMP 36.6; O2SAT 95
[2024-12-02] MEDS: IVABRADINE HCL 7.5MG TABLET PO (09:35)
[2024-12-02] MEDS: METOPROLOL TARTRATE 50MG TABLET PO (09:35)
[2024-12-02 09:50] LABS: Chloride 100 mmol/L (98-107); Sodium 139 mmol/L (136-145)
[2024-12-02 09:53] LABS: Blood Urea Nitrogen 12 mg/dl (7-17); Creatinine Clearance Estimated 40 mL/min (50-200); Estimated Glomerular Filt Rate 83 ml/min (>60); GFR (African American) 100 ML/MIN (>60)
[2024-12-02 09:54] LABS: Calcium 9.5 mg/dl (8.4-10.2); Carbon Dioxide 32 mmol/L (22.0-30.0); Glucose 119 mg/dl (74-100)
[2024-12-02 10:57] VITALS: BP 136/78; PULSE 63; O2SAT 94
[2024-12-02] MEDS: NITROGLYCERIN 0.4MG SL TABLET SL (10:59)
[2024-12-02 11:00] VITALS: BP 110/64; PULSE 58; O2SAT 94
[2024-12-02] MEDS: 0.9 % SODIUM CHLORIDE 50 ML VIAL IV (11:55)
[2024-12-02] MEDS: IOPAMIDOL-370 (76%);100ML BOTTLE 85 ML IV (11:55)
[2024-12-02] MEDS: SODIUM CHLORIDE 0.9% 10ML SYR (RAD ONLY) 10 ML IV (11:55)
== END 2024-12-02 11:44 | disposition home or self-care (01) ==
LOC: RAD 09:10
PROVIDERS: PCP Family Medicine; Visit Provider Physician Assistant
DX: R94.31 Abnormal electrocardiogram [ECG] [EKG] (principal); R60.0 Localized edema; R06.09 Other forms of dyspnea; R07.89 Other chest pain
CPT/HCPCS: 75574; 80048; Q9967

== ENCOUNTER 2025-01-07 08:59 | Day surgery (SDC) | payer MEDICARE, SELFPAY ==
[2025-01-07 09:13] VITALS: BP 137/75; PULSE 83; RESP 16; TEMP 36.4; O2SAT 95; BMI 44.1
--- NOTE | 2025-01-07 09:22 | P.PCN_ITS ---
Procedure Date: 01/07/25 Time: 10:00 Anesthesiologist:: Suzi Renee APRN Complications:: None Pre-procedure Diagnosis:: Degenerative disc disease of lumbar spine with lumbar radiculopathy symptoms, chronic pain syndrome Post-procedure Diagnosis:: Same Indications for Procedure:: Patient is a pleasant 69-year-old female who presents today for intrathecal refill and reprogram. She rates her pain a 2 out of 10 in her back. Patient does state that she is having more pain related to her right knee. She states that she ended up having more of a lump that came up and was very sore and its progressed since. Patient states that they ultimately did imaging and said that there was no cartilage and that it is [id number]. Patient denies any prior injections in this joint spacing. Patient does state that that pain is interfering with her ability perform activities of daily living such as cooking and cleaning. Patient does also make mention that she is scheduled for possible heart stent coming up next week. Patient is currently managed with morphine 2 mg/mL with a daily dose of 0.28 to 1 mg/day. She denies any side effects from this medication. Her Lc has been reviewed and is appropriate. Physical Exam: General: Alert and oriented x3, no acute distress, pleasant and cooperative Lungs: Respirations even and unlabored, symmetrical chest expansion Eyes: PERRL Musculoskeletal: Flexion and extension of Right knee somewhat guarded secondary to pain, [antalgic gait noted] Neurological: Speech clear, no gross sensory deficit Procedure Details:: Informed consent was obtained and the risk and benefits of the procedure were explained to the patient. The patient had noninvasive monitoring placed including noninvasive blood pressure cuff and pulse oximeter. Patient's pump was interrogated. The area over the pump was cleansed with chlorhexidine as a cleansing solution. In sterile fashion the pump was accessed with a 22-gauge needle. Approximately 7 mls of the pump solution was removed and discarded appropriately. The pump was then refilled with 20 mL's of morphine 2 mg/mL. The needle was withdrawn and a bandage was placed over the puncture site. The infusion rate was reprogrammed and continued. The patient tolerated well with no complication. Plan and Disposition:: Patient tolerated the procedure well with no complications and was discharged neurologically intact. I did discuss with the patient in future she may benefit from intra-articular knee injections for that joint if she continues to have chronic pain with very limited range of motion. With this plan of care at a later date. Patient was counseled to call our office if she decides she would like to proceed forward. We will follow-up about how her heart related issues progress. Patient will return to clinic on or before their next intrathecal refill date. We will see the patient back in the clinic at the next intrathecal refill. Patient has been instructed to contact the clinic with any concerns before the next appointment. Dr. Miles has reviewed this note and agrees with this plan of care. This note was dictated using voice recognition software and make contain errors or omissions. -- It Is medically necessary for this patient to continue to have their intrathecal pump refilled at regular intervals. This patient had an intrathecal pain pump implanted after meeting criteria of chronic intractable pain for greater than 3 months and failing conservative treatments. Patient has committed and been compliant to the treatment plan and all planned follow up care. Since im plantation of the intrathecal pain pump, the patient has had decreased pain and been more functional. Oral medications have been reduced including intake of oral opioids. Patient continues to do well with intrathecal therapy with decrease in pain symptoms and increase in functional status. Stopping intrathecal medications can lead to life threatening withdrawal, seizures, cardiac arrest, severe pain, and possible . Pumps that are not refilled at regular intervals can be damages and cause and need for replacement. We continually titrate dose and concentration to optimize pain relief and function. We are limited in concentration for certain drugs to safely deliver medications through the pump and stay within the recommendations from the Polyanalgesic Consensus Committee Guidelines. Depending on dose and concentration these pumps may need to be refilled sooner than 3 months as we titrate. A UDS is needed to verify patient's compliance with our office pain contract. This is ordered based off specific treatments related to chronic pain with the potential to abuse certain medications.
[2025-01-07 09:57] VITALS: BP 150/77; PULSE 82; RESP 18; O2SAT 97
[2025-01-07 09:58] VITALS: BP 150/77; PULSE 87; RESP 18; O2SAT 97
[2025-01-07 10:11] VITALS: BP 133/63; PULSE 84; RESP 16; O2SAT 96
== END 2025-01-07 10:11 | disposition home or self-care (01) ==
PROVIDERS: PCP Family Medicine; Visit Provider Nurse Practitioner Family
DX: M51.16 Intervertebral disc disorders with radiculopathy, lumbar region (principal); G89.4 Chronic pain syndrome; Z73.89 Other problems related to life management difficulty
CPT/HCPCS: 62370; 99212; G0463

== ENCOUNTER 2025-01-10 08:30 | Day surgery (SDC) | payer MEDICARE, SELFPAY ==
[2025-01-10] VITALS (14 sets, daily range): BP systolic 101–150; BP diastolic 52–85; PULSE 60–80; RESP 16–20; O2SAT 92–97; BMI 42.3
--- NOTE | 2025-01-10 07:21 | IR_ITS ---
APPROVED REPORT Patient Location: Outpatient PROCEDURES Left heart catheterization Left ventriculogram Selective coronary angiogram INDICATION Abnormal CCTA, Coronary artery disease, Angina pectoris Informed consent was obtained prior to the procedure. COMPLICATIONS NONE Estimated Blood Loss: LESS THAN 10 ML TECHNIQUE One percent lidocaine used to anesthetize the right anterior aspect of the wrist. The right radial artery was accessed via the Seldinger technique. A 6 Estonian sheath was placed in the right radial artery. 2.5 mg of Verapamil, 800 mcg of nitroglycerin, 1mg Lidocaine and 5000 U Heparin were given through the arterial sheath. The 6 Estonian JL 3 guide catheter was also used to perform left heart catheterization, left ventriculogram and selective coronary angiogram. At the end of the procedure the sheath was removed good hemostasis was achieved using Traclet band, patient was transferred to the postop holding area in stable condition. ANGIOGRAPHIC RESULTS The left main artery Normal The left anterior descending artery Has proximal smooth 20% stenoses with a mid vessel 30% stenosis along a tortuous bend The circumflex artery Nondominant yet still large caliber with a mid vessel concentric 30% stenosis The right coronary artery Codominant with mild proximal and mid vessel 10% luminal regularities The HENRY ventriculogram reveals Normal 65% The left ventricular end-diastolic pressure 25 mmHg IMPRESSION Mild nonflow limiting coronary disease Normal ejection fraction Elevated LVEDP consistent with diastolic dysfunction PLAN 1. Risk factor modification 2. Recommend diuretics weight loss sleep study and treatment for diastolic dysfunction Electronically signed by : Christiano Alexander MD 01/10/2025 11:55:20
[2025-01-10 09:04] LABS: Basophils % 0.4 % (0.1-2.0); Eosinophils # 0.1 K/mm3 (0.0-0.4); Eosinophils % 1.8 % (0.1-12.0); Hematocrit 41.4 % (37.0-47.0); Hemoglobin 13.6 g/dL (12.2-16.2); Lymphocytes # 2.3 K/mm3 (0.7-4.5); Lymphocytes % 31.3 % (10-50); Mean Corpuscular HGB Conc 32.9 g/dL (31.8-35.4); Mean Corpuscular Hemoglobin 26.7 pg (27.0-31.2); Mean Corpuscular Volume 81.3 fl (81-99); Mean Platelet Volume 10.5 fl (7.4-10.4); Monocytes # 0.6 K/mm3 (0.1-1.0); Monocytes % 8.9 % (1.7-9.3); Neutrophils # 4.1 K/mm3 (1.8-7.8); Platelet Count 223 K/mm3 (142-424); Red Blood Count 5.09 M/mm3 (4.20-5.40); Red Cell Distribution Width 12.8 % (11.5-17.5); White Blood Count 7.2 K/mm3 (4.8-10.8)
[2025-01-10 09:06] LABS: Chloride 104 mmol/L (98-107); Potassium 3.7 mmoL/L (3.5-5.1); Sodium 138 mmol/L (136-145)
[2025-01-10 09:09] LABS: Blood Urea Nitrogen 14 mg/dl (7-17); Creatinine Clearance Estimated 40 mL/min (50-200); Estimated Glomerular Filt Rate 83 ml/min (>60); GFR (African American) 100 ML/MIN (>60)
[2025-01-10 09:10] LABS: Anion Gap 9.7 mEq/L (5-15); Calcium 9.5 mg/dl (8.4-10.2); Carbon Dioxide 28 mmol/L (22.0-30.0); Glucose 120 mg/dl (74-100)
[2025-01-10] MEDS: 0.9 % SODIUM CHLORIDE 500 ML 25 ML IV (10:47)
[2025-01-10] MEDS: diphenhydrAMINE 50MG/ML VIAL 50 MG IV (10:47)
[2025-01-10] MEDS: HEPARIN 1,000 UNITS/500ML NS (CATH LAB) 3000 UNIT IV (10:47)
[2025-01-10] MEDS: HEPARIN 1,000 UNITS/ML 10ML VIAL (CATH LAB) 10000 UNIT IV (10:47)
[2025-01-10] MEDS: LIDOCAINE 1% 10ML MDV 20 ML IJ (10:47)
[2025-01-10] MEDS: FENTANYL 100MCG/2ML VIAL 50 MCG IV (10:48)
[2025-01-10] MEDS: NITROGLYCERIN 800MCG/8ML SYR (CATH LAB) 800 MCG IA (10:48)
[2025-01-10] MEDS: VERAPAMIL 2.5MG/ML 2ML VIAL 2.5 MG IV (10:48)
[2025-01-10] MEDS: MIDAZOLAM HCL 1MG/ML 5ML VIAL 1 MG IV (10:48)
[2025-01-10] MEDS: IOPAMIDOL-370 (76%);100ML BOTTLE 85 ML IV (13:20)
== END 2025-01-10 14:49 | disposition home or self-care (01) ==
PROVIDERS: PCP Family Medicine; Visit Provider Internal Medicine
DX: I25.118 Atherosclerotic heart disease of native coronary artery with other forms of angina pectoris (principal); R94.31 Abnormal electrocardiogram [ECG] [EKG]; Z97.8 Presence of other specified devices; Z79.899 Other long term (current) drug therapy; Z79.891 Long term (current) use of opiate analgesic; I10 Essential (primary) hypertension; E03.9 Hypothyroidism, unspecified; R29.6 Repeated falls; I87.2 Venous insufficiency (chronic) (peripheral); G47.33 Obstructive sleep apnea (adult) (pediatric)
CPT/HCPCS: 80048; 85025; 93458; 99152; C1725; C1769; J1200; J1644; J3010; Q9967

== ENCOUNTER 2025-01-20 14:35 | Outpatient (POV) | payer MEDICARE, SELFPAY ==
[2025-01-20 14:55] VITALS: BP 139/76; PULSE 105; RESP 16; O2SAT 97; BMI 39.4
--- NOTE | 2025-01-20 15:19 | A.OFFVIS_ITS ---
[facility] Disclaimer: The information contained in this section may have been updated after the patient was seen, as this information can be updated by other users. Medical History (Updated 01/20/25 @ 15:22 by Suzi Renee APRN) Fatigue Wound of left lower extremity Obstructive sleep apnea Edema of both lower extremities Abnormal electrocardiogram [ECG] [EKG] Other specified nonscarring hair loss Hypothyroidism Thyroid Nodule Thickened endometrium Cataract History of hypertension Pelvic pain Adjustment disorder Edema Osteoarthritis History of back pain Surgical History Hx of cataract removal with insertion of prosthetic lens Hx of breast reduction, elective Hx of tonsillectomy Hx of cholecystectomy History of back surgery History of carpal tunnel surgery Hx of rotator cuff surgery Hx of dilation and curettage Status post lumbar spinal fusion Family History Other Cancer Diabetes Hypertension Social History Smoking Status: Never smoker smoking status stop date: 1992 second hand exposure: Yes alcohol intake: never substance use type: denies use current occupational status: other Travel in the last 8 weeks: None household members: spouse housing: house lives independently: No marital status: education level: high school service: No skilled nursing: No current occupational exposures/hazards: No pets and animals: Yes pets and animals: dog(s) sexually active: No caffeine: No do you feel safe at home: Yes victim of physical abuse: No victim of emotional abuse: No victim of sexual abuse: No would you like helpful sources: No PM Subjective & Objective Subjective Subjective:: Patient is a pleasant 69-year-old female who presents today for follow-up of worsening right knee pain. She does rate that pain a 10 out of 10. Patient does state it really is both knees however the right is the worst. We did discuss already injections at her last pump refill however patient was scheduled for an upcoming heart cath and we wanted to wait to follow-up after. Patient does state that that went well and that there was only a small blockage that did not require a stent. She states that they did end up putting her on too strong fluid pills and that she is already dropped at least 30 pounds from that. Patient does state the knee pain is fairly constant and does interfere with her ability perform activities of daily living such as cooking and cleaning. Patient has tried oral medication, heat and ice, topicals, at home stretching exercise for longer than 12 weeks. Patient denies any prior surgery on her knees. Patient has had imaging that did show [id number]. She would like to proceed forward with injection therapy. Patient is managed with morphine 2 mg/mL with a daily dose of 0.2821 mg/day. She denies any side effects. She states that her back is doing wonderful with the pump and that she does not even have to use her bolus device. Her Lc has been reviewed and is appropriate. Review of Systems: General: No recent weight changes, no fever, no sleep disturbances Respiratory: No cough, no shortness of air, no recurring pulmonary infections Cardiovascular/peripheral vascular: No chest pain, no palpitations, no edema, no shortness of breath Gastrointestinal: No new onset incontinence, normal bowel movements reported Genitourinary: No new onset incontinence Musculoskeletal: Bilateral knee pain Psychiatric: [Normal mood/affect] Neurological: [Denies weakness in extremities], [denies balance issues] Pain at rest (0-10 scale): 10 Objective Objective:: Physical Exam: General: Alert and oriented x3, no acute distress, pleasant and cooperative Lungs: Respirations even and unlabored, symmetrical chest expansion Eyes: PERRL Musculoskeletal: Flexion and extension of bilateral knees somewhat guarded secondary to pain, [antalgic gait noted] Neurological: Speech clear, no gross sensory deficit FINDINGS: Right knee Three views were obtained. There is no fracture or dislocation. There is moderate to advanced medial compartment and patellofemoral joint space narrowing. Osteophytes are seen along the undersurface of the patella. No soft tissue abnormality is identified. IMPRESSION: Significant degenerative changes as above. Reviewed, Interpreted and Dictated by Edgardo Valencia MD Transcribed by Jessie Romero Authenticated and [facility] Has patient had previous pain injection?: No Conservative treatment options previously tried: Home exercise plan Length of treatment: Longer than 12 weeks Meds Home Medications and Allergies Home Medications ?Medication ?Instructions ?Recorded ?Confirmed ?Type clonazepam 0.5 mg tablet 0.5 mg PO BID NERVE TICK 02/26/19 01/20/25 History omeprazole 40 mg capsule,delayed 40 mg PO DAILY GERD 02/26/19 01/20/25 History release atorvastatin 20 mg tablet 20 mg PO HS Cholesterol 08/20/21 01/20/25 History morphine (PF) 1 mg/mL injection 0.105 mg continuous epidural CONT 05/19/23 01/20/25 History solution chronic pain fluticasone propionate 50 50 mcg intranasal DAILY 04/15/24 01/20/25 History mcg/actuation nasal spray,suspension montelukast 10 mg tablet 10 mg PO DAILY 04/15/24 01/20/25 History cholecalciferol (vitamin D3) 1,250 50,000 unit PO WEEKLY 04/22/24 01/20/25 History mcg (50,000 unit) capsule levothyroxine 50 mcg tablet 50 mcg PO DAILY hypothyroidism #90 06/01/24 01/20/25 Rx (Synthroid) tabs atomoxetine 80 mg capsule 80 mg PO ONCE 11/23/24 01/20/25 History albuterol sulfate 90 mcg/actuation 90 mcg inhalation . 12/23/24 01/20/25 History aerosol inhaler furosemide 40 mg tablet (Lasix) 40 mg PO DAILY #30 tabs 01/10/25 01/20/25 Rx spironolactone 100 mg tablet 100 mg PO DAILY 30 days #30 tabs 01/10/25 01/20/25 Rx New Prescriptions to Start Prescriptions: Allergies Allergy/AdvReac Type Severity Reaction Status Date / Time amoxicillin (From TRIMOX) Allergy Unknown Hives Verified 12/23/24 14:03 Penicillins (PENICILLINS) Allergy Unknown Hives Verified 12/23/24 14:03 Assessment and Plan *Assessment and plan (1) Knee pain: Status: Acute Qualifiers: Chronicity: unspecified Laterality: right Qualified Code(s): M25.561 - Pain in right knee Category: Medical Code(s): M25.569 - Pain in unspecified knee (2) Bilateral knee pain: Status: Acute Category: Medical Code(s): M25.561 - Pain in right knee; M25.562 - Pain in left knee (3) Osteoarthritis: Status: Acute Category: Medical Code(s): M19.90 - Unspecified osteoarthritis, unspecified site Plan Patient did have limited range of motion of her bilateral knees with worsening pain with certain movements. I did discuss with the patient that I do believe she would benefit from bilateral knee intra-articular injection. Risk and benefits were discussed with the patient and she would like to proceed forward with this plan of care. Patient has tried and failed conservative measures including oral medications, heat and ice, topicals, at home stretching exercise for longer than 12 weeks. Patient has not had any surgical intervention regarding her knee pain and denies any injections history. Patient will be sc heduled for a bilateral knee intra-articular injection. This will be done without fluoroscopic guidance or ultrasound. Patient agrees with this plan of care. Patient has been instructed to contact the clinic with any concerns before the next appointment. Dr. Milse has reviewed this note and agrees with this plan of care. This note was dictated using voice recognition software and make contain errors or omissions. All injections are used with Lidocaine, Bupivacaine and Depo Medrol. Occasionally urine drug screen is needed to verify patient's compliance with our office pain contract. This is ordered based off specific treatments related to chronic pain with the potential to abuse certain medications.
== END 2025-01-20 23:59 | disposition home or self-care (01) ==
LOC: SC.PAIN 14:37
PROVIDERS: PCP Family Medicine; Visit Provider Nurse Practitioner Family
DX: M25.561 Pain in right knee (principal); M25.562 Pain in left knee; M19.90 Unspecified osteoarthritis, unspecified site; Z73.89 Other problems related to life management difficulty
CPT/HCPCS: 99212; G0463

== ENCOUNTER 2025-01-26 10:03 | Outpatient (CLI) | payer MEDICARE, SELFPAY ==
[2025-01-26 11:30] LABS: Chloride 99 mmol/L (98-107); Potassium 4.2 mmoL/L (3.5-5.1); Sodium 138 mmol/L (136-145)
[2025-01-26 11:33] LABS: Anion Gap 14.2 mEq/L (5-15); Blood Urea Nitrogen 22 mg/dl (7-17); Carbon Dioxide 29 mmol/L (22.0-30.0); Estimated Glomerular Filt Rate 62 ml/min (>60); GFR (African American) 75 ML/MIN (>60); Glucose 182 mg/dl (74-100)
== END 2025-01-26 23:59 | disposition home or self-care (01) ==
LOC: LAB 10:04
PROVIDERS: PCP Family Medicine; Visit Provider Physician Assistant
DX: R94.31 Abnormal electrocardiogram [ECG] [EKG] (principal); R53.83 Other fatigue
CPT/HCPCS: 36415; 80048

== ENCOUNTER 2025-01-31 12:43 | Outpatient (CLI) | payer MEDICARE, SELFPAY ==
--- NOTE | 2025-01-31 12:46 | MM_ITS ---
PROCEDURE INFORMATION: Exam: MG Bilateral Screening 3D Mammography Exam date and time: 01/31/2025 1:06 PM Age: 69 years old Clinical indication: Screening examination TECHNIQUE: Imaging protocol: Bilateral Screening tomosynthesis and 2D mammography including computer-aided detection (CAD) when performed. COMPARISON: 1. MG [facility]MSB DIG MAMM-SCREEN HIRAM 03/15/2015 3:41 PM 2. MG [facility]MSB DIG MAMM-SCREEN HIRAM 03/08/2014 8:53 AM FINDINGS: MAMMOGRAPHY: Breast composition: There are scattered areas of fibroglandular density. Mass: None. Architectural distortion: None. Calcifications: No suspicious calcifications. Asymmetric density: None. Skin thickening: None. Axillary adenopathy: None. IMPRESSION: No mammographic evidence of malignancy. Annual screening is recommended unless otherwise clinically indicated. ASSESSMENT: BI-RADS Category 1: Negative.
--- OUTSIDE RECORDS SUMMARY | 2025-02-03 20:26 | XMS_ITS | Data Portability ---
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 Plan of Treatment Reminders Order Date Submit Date Provider Last Modified By Organization Details Last Modified Time Details Appointments None recorded. Lab CBC w/ auto diff 2023 024 GOMER [facility], [address], [address], [place], [address], 4 08:24:44 CMP, serum or plasma 2023 024 GOMER [facility], [address], [address], [place], [address], 4 08:24:46 erythrocyte sedimentati on rate by westergren method 2023 024 MARCEL [facility], [address], [address], [place], [address], 4 08:24:47 C reactive protein, QN, serum or plasma 2023 024 MARCEL [facility], [address], [address], [place], [address], 4 08:24:48 Referral None recorded. Procedures None recorded. Surgeries None recorded. Imaging None recorded. Medication Orders bumetanide 1 mg tablet 2022 023 [facility], [address] [place] [address] [place], [id number], 14:00:34 Patient TargetsNo targets recorded. Patient InstructionsNo instructions recorded. Reason for Referral None Reported. Results Created Date Observation Date Name Description Value Unit Range Abnormal Flag Note LastModifiedBy Organization Detail LastModifiedTime 02/24/20 24 02/25/2024 CBC WITH DIFFE RENTI AL/PL ATELE T WBC 7.7 x10e3 /uL 3.4-10 .8 Not Available [facility] ([facility]) [address] [place], [address], 02/25/2024 08:24:44 02/24/20 24 02/25/2024 CBC WITH DIFFE RENTI AL/PL ATELE T RBC 4.83 x10e6 /uL 3.77-5 .28 Not Available [facility] ([facility]) [address] [place], [address], 02/25/2024 08:24:44 02/24/20 24 02/25/2024 CBC WITH DIFFE RENTI AL/PL ATELE T hemoglobin 13.2 g/dL 11.1-1 5.9 Not Available [facility] ([facility]) [address] [place], [address], 02/25/2024 08:24:44 02/24/20 24 02/25/2024 CBC WITH DIFFE RENTI AL/PL ATELE T hematocrit 40.0 % 34.0-4 6.6 Not Available [facility] ([facility]) [address] [place], [address], 02/25/2024 08:24:44 02/24/20 24 02/25/2024 CBC WITH DIFFE RENTI AL/PL ATELE T MCV 83 fL 79-97 Not Available [facility] ([facility]) [address] [facility] [place], [address], 02/25/2024 08:24:44 02/24/20 24 02/25/2024 CBC WITH DIFFE RENTI AL/PL ATELE T MCH 27.3 pg 26.6-3 3.0 Not Available [facility] ([facility]) [address] [facility], [place], [address], 02/25/2024 08:24:44 02/24/20 24 02/25/2024 CBC WITH DIFFE RENTI AL/PL ATELE T MCHC 33.0 g/dL 31.5-3 5.7 Not Available [facility] ([facility]) [address] [facility], [place], [address], 02/25/2024 08:24:44 02/24/20 24 02/25/2024 CBC WITH DIFFE RENTI AL/PL ATELE T RDW 13.1 % 11.7-1 5.4 Not Available [facility] ([facility]) [address] [facility], [place], [address], 02/25/2024 08:24:44 02/24/20 24 02/25/2024 CBC WITH DIFFE RENTI AL/PL ATELE T platelets 238 x10e3 /uL 150-45 0 Not Available [facility] ([facility]) [address] [facility], [place], [address], 02/25/2024 08:24:44 02/24/20 24 02/25/2024 CBC WITH DIFFE RENTI AL/PL ATELE T neutrophils 58 % not estab. Not Available [facility] ([facility]) [address] [facility], [place], [address], 02/25/2024 08:24:44 02/24/20 24 02/25/2024 CBC WITH DIFFE RENTI AL/PL ATELE T lymphs 32 % not estab. Not Available [facility] ([facility]) [address] [place], [address], 02/25/2024 08:24:44 02/24/20 24 02/25/2024 CBC WITH DIFFE RENTI AL/PL ATELE T monocytes 7 % not estab. Not Available [facility] ([facility]) [address] [facility], [place], [address], 02/25/2024 08:24:44 02/24/20 24 02/25/2024 CBC WITH DIFFE RENTI AL/PL ATELE T eos 2 % not estab. Not Available [facility] ([facility]) [address] [facility], [place], [address], 02/25/2024 08:24:44 02/24/20 24 02/25/2024 CBC WITH DIFFE RENTI AL/PL ATELE T basos 0 % not estab. Not Available [facility] ([facility]) [address] [facility], [place], [address], 02/25/2024 08:24:44 02/24/20 24 02/25/2024 CBC WITH DIFFE RENTI AL/PL ATELE T immature cells SUPERVISOR FERTILIZER PROCESSING Not Available [facility] ([facility]) [address] [place], [address], 02/25/2024 08:24:44 02/24/20 24 02/25/2024 CBC WITH DIFFE RENTI AL/PL ATELE T neutrophils (absolute) 4.5 x10e3 /uL 1.4-7. 0 Not Available [facility] ([facility]) [address] [place], [address], 02/25/2024 08:24:44 02/24/20 24 02/25/2024 CBC WITH DIFFE RENTI AL/PL ATELE T lymphs (absolute) 2.5 x10e3 /uL 0.7-3. 1 Not Available [facility] ([facility]) [address] [place], [address], 02/25/2024 08:24:44 02/24/20 24 02/25/2024 CBC WITH DIFFE RENTI AL/PL ATELE T monocytes(ab solute) 0.5 x10e3 /uL 0.1-0. 9 Not Available [facility] ([facility]) [address] [facility], [place], [address], 02/25/2024 08:24:44 02/24/20 24 02/25/2024 CBC WITH DIFFE RENTI AL/PL ATELE T eos (absolute) 0.2 x10e3 /uL 0.0-0. 4 Not Available [facility] ([facility]) [address] [facility], [place], [address], 02/25/2024 08:24:44 02/24/20 24 02/25/2024 CBC WITH DIFFE RENTI AL/PL ATELE T baso (absolute) 0.0 x10e3 /uL 0.0-0. 2 Not Available [facility] ([facility]) [address] [facility], [place], [address], 02/25/2024 08:24:44 02/24/20 24 02/25/2024 CBC WITH DIFFE RENTI AL/PL ATELE T immature granulocytes 1 % not estab. Not Available [facility] ([facility]) [address] [facility], [place], [address], 02/25/2024 08:24:44 02/24/20 24 02/25/2024 CBC WITH DIFFE RENTI AL/PL ATELE T immature grans (abs) 0.1 x10e3 /uL 0.0-0. 1 Not Available [facility] ([facility]) [address] [place], [address], 02/25/2024 08:24:44 02/24/20 24 02/25/2024 CBC WITH DIFFE RENTI AL/PL ATELE T NRBC SUPERVISOR FERTILIZER PROCESSING Not Available [facility] ([facility]) [address] [place], [address], 02/25/2024 08:24:44 02/24/20 24 02/25/2024 CBC WITH DIFFE CNOSTANCE AL/PL STEFFANY T hematology comments: SUPERVISOR FERTILIZER PROCESSING Not Available [facility] ([facility]) [address] [facility], [place], [address], 02/25/2024 08:24:44 02/24/20 24 02/25/2024 COMP. METAB OLIC PANEL (14) glucose 114 mg/dL 70-99 above high normal Not Available [facility] ([facility]) [address] [facility], [place], [address], 02/25/2024 08:24:45 02/24/20 24 02/25/2024 COMP. METAB OLIC PANEL (14) BUN 12 mg/dL 8-27 Not Available [facility] ([facility]) [address] [facility], [place], [address], 02/25/2024 08:24:45 02/24/20 24 02/25/2024 COMP. METAB OLIC PANEL (14) creatinine 0.81 mg/dL 0.57-1 .00 Not Available [facility] ([facility]) [address] [place], [address], 02/25/2024 08:24:45 02/24/20 24 02/25/2024 COMP. METAB OLIC PANEL (14) eGFR 79 mL/mi n/1.7 3 >59 Not Available [facility] ([facility]) [address] [facility], [place], [address], 02/25/2024 08:24:45 02/24/20 24 02/25/2024 COMP. METAB OLIC PANEL (14) BUN/creatini ne ratio 15 12-28 Not Available [facility] ([facility]) [address] [place], [address], 02/25/2024 08:24:45 02/24/20 24 02/25/2024 COMP. METAB OLIC PANEL (14) sodium 140 mmol/ L 134-14 4 Not Available [facility] ([facility]) [address] [place], [address], 02/25/2024 08:24:45 02/24/20 24 02/25/2024 COMP. METAB OLIC PANEL (14) potassium 4.2 mmol/ L 3.5-5. 2 Not Available [facility] ([facility]) [address] [place], [address], 02/25/2024 08:24:45 02/24/20 24 02/25/2024 COMP. METAB OLIC PANEL (14) chloride 101 mmol/ L 96-106 Not Available [facility] ([facility]) [address] [place], [address], 02/25/2024 08:24:45 02/24/20 24 02/25/2024 COMP. METAB OLIC PANEL (14) carbon dioxide, total 24 mmol/ L 20-29 Not Available [facility] ([facility]) [address] [place], [address], 02/25/2024 08:24:45 02/24/20 24 02/25/2024 COMP. METAB OLIC PANEL (14) calcium 9.8 mg/dL 8.7-10 .3 Not Available [facility] ([facility]) [address] [place], [address], 02/25/2024 08:24:45 02/24/20 24 02/25/2024 COMP. METAB OLIC PANEL (14) protein, total 6.6 g/dL 6.0-8. 5 Not Available [facility] ([place] [facility]) [address] [place], [address], 02/25/2024 08:24:45 02/24/20 24 02/25/2024 COMP. METAB OLIC PANEL (14) albumin 3.9 g/dL 3.9-4. 9 Not Available [facility] ([facility]) [address] [facility], [place], [address], 02/25/2024 08:24:45 02/24/20 24 02/25/2024 COMP. METAB OLIC PANEL (14) globulin, total 2.7 g/dL 1.5-4. 5 Not Available [facility] ([facility]) [address] [facility], [place], [address], 02/25/2024 08:24:45 02/24/20 24 02/25/2024 COMP. METAB OLIC PANEL (14) A/G ratio 1.4 1.2-2. 2 Not Available [facility] ([facility]) [address] [place], [address], 02/25/2024 08:24:45 02/24/20 24 02/25/2024 COMP. METAB OLIC PANEL (14) bilirubin, total 0.4 mg/dL 0.0-1. 2 Not Available [facility] ([facility]) [address] [facility], [place], [address], 02/25/2024 08:24:45 02/24/20 24 02/25/2024 COMP. METAB OLIC PANEL (14) alkaline phosphatase 93 IU/L 44-121 Not Available [facility] ([facility]) [address] [facility], [place], [address], 02/25/2024 08:24:45 02/24/20 24 02/25/2024 COMP. METAB OLIC PANEL (14) AST (SGOT) 23 IU/L 0-40 Not Available [facility] ([facility]) [address] [facility], [place], [address], 02/25/2024 08:24:45 02/24/20 24 02/25/2024 COMP. METAB OLIC PANEL (14) ALT (SGPT) 21 IU/L 0-32 Not Available [facility] ([facility]) [address] [facility], [place], [address], 02/25/2024 08:24:45 02/24/20 24 02/25/2024 SEDIM ENTAT ION RATE- WESTE RGREN sedimentatio n rate-westerg rubina 13 mm/HR 0-40 Not Available [facility] ([facility]) [address] [facility], [place], [address], 02/25/2024 08:24:47 02/24/20 24 02/25/2024 C-DBERA CTIVE PROTE IN, QUANT C-reactive protein, quant 4 mg/L 0-10 Not Available [facility] ([facility]) [address] [facility], [place], [address], 02/25/2024 08:24:48 01/19/20 24 08/04/2023 MRI, cervi miquel spine , w/wo contr ast No observ ation record ed. BARCODE Not Available 2023 11:29:14 01/19/2008/04/2023 MRI, brain , w/wo contr ast No observ ation record ed. BARCODE Not Available 2023 11:29:14 Result Notes None recorded. Problems Name Problem SNOMED Code Status Onset Date Resolution Date Notes Provider Name and Address Organization Details Recorded Time Motor tic disorder 150931817 Active 2021 Franny Quiroga DO [address] [facility], [place], [address] , [place] - [facility] & [place] 2 12:54:43 Edema of lower extremity 017182057 Active 2022 Lupillo Gann MD [address] [facility], [place], [address] , [place] - [facility] [place] & [place] 3 16:14:23 Hyperlipidemi a 76424737 Active 2022 Lupillo Gann MD [address] [facility], [place], [address] , [place] - [facility] & [place] 3 16:19:20 Obstructive sleep apnea syndrome 34615285 Active 2022 Lupillo Gann MD [address], [place], [address] , [place] [facility] [place] & [place] 3 16:20:37 Essential tremor 049541437 Active 2022 Franny Quiroga DO [address], [place], [address] , [place] - [facility] [place] & [place] 3 09:19:11 Problem Notes None recorded. Procedures Surgical History Date Name Laterality Status Provider Name and Address Organization Details Recorded Time 12/06/19 22 completed Jade MEDRANO - [facility] - [place] & [place] 01/06/2023 15:37:14 02/10/20 20 Date of Last Colonoscopy completed Jade MEDRANO - [facility] [place] & [place] 01/06/2023 15:37:14 10/27/19 20 Back Surgery completed Clarisa MEDRANO - [facility] [place] & [place] 05/06/2023 09:11:59 10/27/19 20 Carpal tunnel surgery completed Clarisa MEDRANO - [facility] [place] & [place] 05/06/2023 09:12:31 10/27/18 99 primary fusion of cervical spine completed Clarisa MEDRANO - [facility] [place] & [place] 05/06/2023 09:11:27 10/27/18 98 Tonsillectomy/Adeno idectomy completed Marisol MEDRANO - [facility] [place] & [place] 03/18/2023 14:31:08 10/27/18 92 Breast Surgery completed Clarisa MEDRANO - [facility] [place] & [place] 05/06/2023 09:11:12 repair of musculotendinous cuff of shoulder completed Jade MEDRANO - [facility] [place] & [place] 01/06/2023 16:02:53 cholecystectomy completed Jade MEDRANO - [facility] [place] & [place] 01/06/2023 16:04:58 extraction of cataract completed Clarisa Cox [facility] - [place] & [place] 05/06/2023 09:15:15 Imaging Results Imaging Date Name Status LastModified by Organiz ation Details LastModified Time 08/04/2023 MRI, cervical spine, w/wo contrast completed [facility] Information not available 01/19/2024 11:29:14 08/04/2023 MRI, brain, w/wo contrast completed [facility] Information not available 01/19/2024 11:29:14 Procedure Notes None recorded. Medical Equipment None Reported. Allergies Allergen ID Allergen Name Allergen Category Reaction Reaction Severity Criticality Documentation Date Start Date Code Code System Note Provider Name and Address Organization Details Recorded Time [id number] amoxicill in trihydrat e medicatio n Not available Not available Not available 02/24/2024 84976 8 RxNorm Cleo Ferrari [facility] & [place] 4 13:01:03 30993 acetazola mide medicatio n hives moderate high 01/06/2023 167 RxNorm Jade Ibrahim [facility] & [place] 3 15:58:16 Medications Name Sig Start Date Stop Date Status Note LastModified by Organization Details LastModified Time cyclobenzap rine 10 mg tablet TAKE ONE TABLET BY MOUTH EVERY DAY AT BEDTIME NEEDED MAY CAUSE DROWSINES S 01/03 completed Not Available Not Available Not Available prednisone 10 mg tablet TAKE ACCORDING TO PRINTED OUT INSTRUCTI ON SHEET 01/03 completed Not Available Not Available Not Available doxycycline hyclate 100 mg capsule TAKE ONE CAPSULE BY MOUTH TWICE DAILY FOR 10 DAYS -- FINISH ALL MEDICINE -- 05/05 completed Not Available Not Available Not Available atorvastati n 20 mg tablet TAKE ONE TABLET BY MOUTH EVERY DAY active Not Available Not Available No t Available clindamycin HCl 300 mg capsule TAKE ONE CAPSULE BY MOUTH EVERY TWELVE HOURS FOR 7 DAYS -- FINISH ALL MEDICINE -- 05/05 completed Not Available Not Available Not Available azithromyci n 250 mg tablet TAKE 2 TABLETS BY MOUTH ON DAY 1, THEN TAKE 1 TABLET DAILY ON DAYS 2-5 05/05 completed Not Available Not Available Not Available ibuprofen 800 mg tablet TAKE ONE TABLET BY MOUTH EVERY 8 HOURS NEEDED FOR PAIN --TAKE WITH FOOD-- 05/05 completed Not Available Not Available Not Available tizanidine 4 mg tablet TAKE ONE TABLET BY MOUTH TWICE DAILY MAY CAUSE DROWSINES S 01/03 completed Not Available Not Available Not Available hydrocodone 5 mg-acetamin ophen 325 mg tablet TAKE ONE TABLET BY MOUTH EVERY 8 HOURS NEEDED FOR PAIN 05/05 completed Not Available Not Available Not Available clonazepam 0.5 mg tablet TAKE ONE TABLET BY MOUTH TWICE DAILY MAY CAUSE DROWSINES S active Not Available Not Available No t Available gabapentin 400 mg capsule 01/03 completed Not Available Not Available Not Available Miconazole- 3 200 mg vaginal suppository INSERT 1 SUPPOSITO RY VAGINALLY EVERY DAY AT BEDTIME FOR 3 DAYS 05/05 completed Not Available Not Available Not Available potassium chloride ER 10 mEq tablet,exte nded release TAKE ONE TABLET BY MOUTH TWICE DAILY --TAKE WITH FOOD-- active Not Available Not Available No t Available fexofenadin e 180 mg tablet TAKE ONE TABLET BY MOUTH EVERY DAY active Not Available Not Available No t Available sulfamethox azole 800 mg-trimetho prim 160 mg tablet TAKE ONE TABLET BY MOUTH TWICE DAILY FOR 10 DAYS -- FINISH ALL MEDICINE -- 05/05 completed Not Available Not Available Not Available omeprazole 40 mg capsule,del ayed release TAKE ONE CAPSULE BY MOUTH EVERY DAY 30 minutes BEFORE morning meal active Not Available Not Available No t Available prednisolon e acetate 1 % eye drops,suspe nsion instill 1 drop in affected eye(s) four times DAILY FOR 1 WEEK, THEN taper TO 2 times DAILY FOR a WEEK 01/03 completed Not Available Not Available Not Available baclofen 10 mg tablet TAKE ONE TABLET BY MOUTH TWICE DAILY MAY CAUSE DROWSINES S 03/15 completed Not Available Not Available Not Available levothyroxi ne 50 mcg tablet TAKE ONE TABLET BY MOUTH EVERY DAY ON an EMPTY stomach active Not Available Not Available No t Available hydrochloro thiazide 12.5 mg capsule TAKE ONE CAPSULE BY MOUTH EVERY DAY IN THE MORNING 01/03 completed Not Available Not Available Not Available bumetanide 1 mg tablet TAKE ONE TABLET BY MOUTH EVERY DAY 05/05 completed Not Available Not Available Not Available montelukast 10 mg tablet TAKE ONE TABLET BY MOUTH EVERY DAY active Not Available Not Available No t Available Longs Adult Low Strength ASA 81 mg tablet,mary alice yed release Take 1 tablet every day by oral route in the morning. 05/05 completed Not Available Not Available Not Available hydrochloro thiazide 25 mg tablet TAKE ONE TABLET BY MOUTH EVERY MORNING 05/05 completed Not Available Not Available Not Available furosemide 20 mg tablet TAKE ONE TABLET BY MOUTH EVERY DAY active Not Available Not Available No t Available methylpredn isolone 4 mg tablets in a dose pack TAKE ACCORDING TO PACKAGE INSTRUCTI ONS --TAKE WITH FOOD-- -- FINISH ALL MEDICINE -- 05/05 completed Not Available Not Available Not Available fluticasone propionate 50 mcg/actuati on nasal spray,suspe nsion instill 2 SPRAYS IN EACH NOSTRIL EVERY DAY active Not Available Not Available No t Available Fish Oil daily 05/05 completed Not Available Not Available Not Available Iron (ferrous sulfate) daily 05/05 completed Not Available Not Available Not Available cholecalcif jose maria (vitamin D3) 1,250 mcg (50,000 unit) capsule TAKE ONE CAPSULE BY MOUTH TWICE A WEEK active Not Available Not Available No t Available baclofen 5 mg tablet TAKE ONE TABLET BY MOUTH TWICE DAILY MAY CAUSE DROWSINES S 01/03 completed Not Available Not Available Not Available Vitals Date Recorded Body height Body mass index (BMI) Body weight Oxygen saturation Oxygen saturation in Arterial blood by Pulse oximetry Heart rate Systolic blood pressure Diastolic blood pressure Provider Name and Address Organization Details Last Updated DateTime 3 154.94 cm 44.4 kg/m2 466733. 21 g 97 % 97 % 76 /min 134 mm[Hg] 80 mm[Hg] Marisol Phillipsl [facility] & [place] 3 14:34:01 Date Recorded Body height Body mass index (BMI) Body weight Heart rate Oxygen saturation Oxygen saturation in Arterial blood by Pulse oximetry Systolic blood pressure Diastolic blood pressure Provider Name and Address Organization Details Last Updated DateTime 3 154.94 cm 45.3 kg/m2 405355. 73 g 70 /min 96 % 96 % 130 mm[Hg] 84 mm[Hg] Clarisa Goins [facility] & [place] 3 09:07:40 Date Recorded Body height Oxygen saturation Oxygen saturation in Arterial blood by Pulse oximetry Heart rate Body temperature Body mass index (BMI) Body weight Systolic blood pressure Diastolic blood pressure Provider Name and Address Organization Details Last Updated DateTime 4 154.94 cm 98 % 98 % 86 /min 97.9 [degF] 43.5 kg/m2 909454. 25 g 130 mm[Hg] 86 mm[Hg] Cleo Ferrari [facility] & [place] 4 13:00:35 Date Recorded Body height Oxygen saturation Oxygen saturation in Arterial blood by Pulse oximetry Body temperature Body mass index (BMI) Body weight Heart rate Systolic blood pressure Diastolic blood pressure Provider Name and Address Organization Details Last Updated DateTime 4 154.94 cm 97 % 97 % 97.6 [degF] 43.6 kg/m2 970900. 4 g 57 /min 118 mm[Hg] 64 mm[Hg] Amarilys Vick [facility] & [place] 4 13:22:46 Date Recorded Body height Body mass index (BMI) Body weight Heart rate Systolic blood pressure Diastolic blood pressure Provider Name and Address Organization Details Last Updated DateTime 4 154.94 cm 45.2 kg/m2 911455. 58 g 60 /min 136 mm[Hg] 64 mm[Hg] Clarisa Goins [facility] & [place] 4 14:03:22 Social History Question Answer Notes LastModified by Organizat ion Details LastModified Time Tobacco Smoking Status Former Smoker Jade Ibrahim remigio, [facility] & [place] 01/06/2023 15:36:21 Do You Have An Advance Directive? Yes [email or web address] Information not available 01/06/2023 What Is Your Level Of Alcohol Consumption? None [email or web address] Information not available 01/06/2023 Are You Blind Or Do You Have Difficulty Seeing? No [email or web address] Information not available 01/06/2023 What Is Your Level Of Caffeine Consumption? Occasional Information not available 05/06/2023 Are You Currently Employed? No Social Security Information not available 05/06/2023 What Was The Date Of Your Most Recent Tobacco Screening? 04/01/1992 Information not available 01/06/2023 Do You Have Any Pets? Yes Information not available 05/06/2023 What Is Your Relationship Status? Lives In A House With Information not available 05/06/2023 Are You Passively Exposed To Smoke? Yes Information not available 01/06/2023 Do You Or Have You Ever Used Smokeless Tobacco? Never Used Smokeless Tobacco [email or web address] Information not available 01/06/2023 How Much Tobacco Do You Smoke? 0.5 PPD Information not available 01/06/2023 Do You Feel Stressed (tense, Restless, Nervous, Or Anxious, Or Unable To Sleep At Night)? [id number] [email or web address] Information not available 01/06/2023 Do You Use Any Illicit Or Recreational Drugs? No Information not available 01/06/2023 How Many Years Have You Smoked Tobacco? 12 [email or web address] Information not available 01/06/2023 Are You Currently In School? No Diploma Information not available 05/06/2023 Sex: Unknown Functional Status Question Answer Note LastModified by Organizat ion Details LastModified Time What is your exercise level? Occasional [email or web address] Information not available 01/06/2023 Mental Status None recorded. Family History Relationship Description Onset Age of this Age Resolved Age Notes LastModified by Organization Details LastModified Time Mother Essential hypertension [email or web address] Not available 12:52:28 Mother Hypercholest erolemia [email or web address] Not available 12/25 16:01:31 Medical History Condition Response Other N Thyroid Problems Y Spine Problems Y Obstructive Sleep Apnea Y Neurological Problems Y Vision or Eye Problems Y Arthritis Y Hyperlipidemia Y Back Problems Y Reflux/GERD Y Hypertension Y Gynecological History Statement/Question Response Date of Last Colonoscopy 02/10/2020 12/06/2021 Sexually Active? N Obstetrics History GPAL:G 0 P 0 0 0 0 Past Encounters Encounter ID Performer Location Encounter Start Date Encounter Closed Date Diagnosis/Indication Diagnosis SNOMED-CT Code Diagnosis ICD10 Code Diagnosis Note [id number] Lupillo Gann MD [facility] [address] [facility] [address] [place] [address] 01/06/2023 14:28:25 01/06/2023 16:24:59 Edema of lower extremity 411119076 R60.0 We will add Bumex. Echo to evaluate EF, pulmonary pressures diastolic function. Hyperlipidemia 80258239 E78.5 Continue statin Low fat/carboh ydrate diet Increase exercise Lose weight Obstructiv e sleep apnea syndrome 13211089 G47.33 on CPAP [id number] Lupillo Gann MD [facility] [address] [facility] [address] [place] [id number] 02/04/2023 15:19:31 02/04/2023 16:27:43 Edema of lower extremity [id number] R60.0 We will increase Bumex 1mg BID . Will add Zaroxolyn at next visit if still no relief. Low-salt diet. Fluid restrict to 64 oz a day.Echo was fine . This likely multifacto rial including venous insufficie ncy , obesity all contributi ng. Hyperlipidemia [id number] E78.5 Continue statin Low fat/carboh ydrate diet Increase exercise Lose weight Obstructiv e sleep apnea syndrome [id number] G47.33 on CPAP Body mass index 30+ - obesity [id number] Z68.42 Low-carboh ydrate and low-fat diet Increase exercise to 30 minutes a day. Increase fruits and fresh vegetable intake and decrease processed foods and sugars [id number] Lupillo Gann MD [facility] [address] [facility] [address] [place] [address] 03/18/2023 14:13:54 03/18/2023 15:34:10 Edema of lower extremity [id number] R60.0 continue Bumex 1mg , can decrease to every other day p.r.n.Low- salt diet. Fluid restrict to 64 oz a day.This likely multifacto rial including venous insufficie ncy , obesity all contributi ng. Hyperlipidemia 68665875 E78.5 Continue statin Low fat/carboh ydrate diet Increase exercise Lose weight Obstructiv e sleep apnea syndrome [id number] G47.33 on CPAP Body mass index 30+ - obesity [id number] Z68.42 Low-carboh ydrate and low-fat diet Increase exercise to 30 minutes a day. Increase fruits and fresh vegetable intake and decrease processed foods and sugars [id number] DO RACHANA Elizabeth [facility] [address] [facility],[address] [place] [address] 05/06/2023 09:00:58 05/06/2023 09:29:44 Motor tic disorder [id number] F95.8 Chronic condition that has progressed of late. She will continue with the current klonopin dose. Will monitor and if her bad days increase will consider adjusting her dose. Essential tremor 1726420 09 G25.0 Chronic condition that is stable. No indication for medication s at this time. Behavioral management strategies reviewed. [id number] [facility] [address] [place] [address] 02/24/2024 12:51:30 02/24/2024 13:17:29 Swelling of bilateral lower limbs [id number] M79.89 Complete bilateral duplex scan of extremity veins completed on 01/15/24 was negative for Thrombus. Negative for venous insufficie ncy. Based on history and exam, I do not think this is infectious .Will check basic lab work and will check inflammato ry markers. Will see patient back in 1 week. Recommend regular compressio n stocking use and elevation of the extremitie s. [id number] [facility] [address] [place] [address] 03/03/2024 13:14:02 03/03/2024 13:30:08 Swelling of bilateral lower limbs [id number] M79.89 Complete bilateral duplex scan of extremity veins completed on 01/15/24 was negative for Thrombus. Negative for venous insufficie ncy. Based on history and exam, I do not think this is infectious .All lab work was completely normal. Counseled patient on s/sx of concern . Recommend regular compressio n stocking use and elevation of the extremitie s. Advised patient to keep follow ups with PCP and Vascular. Stasis dermatitis 280971 05 I87.2 see above. [id number] DO RACHANA Elizabeth [facility] [address] [facility],[address] [place] [address] 05/05/2024 13:52:47 05/05/2024 14:33:25 Motor tic disorder [id number] F95.8 Chronic condition that is stable with her medication . She will continue with the current klonopin dose. She does not need refills today. She will check with her PCP to see if they will take over her refills once I am gone. Essential tremor [id number] 09 G25.0 Chronic condition that is stable. No indication for medication s at this time. Behavioral management strategies reviewed. Health Concerns Section Related Observation LastModified by Organization Detai ls LastModified Time None Recorded Concern Status LastModified by Organization Details LastModified Time None Recorded Advance Directives Directive Y: Payers Encounter Date Sequence Insurance Name Policy Number Policy Govea Covered Member ID Govea Member ID Guarantor Name 03/18/2023 1 [place]MEDIC[place] REPLACEMENT HMO) [id number] Shania A [facility] [id number] [facility] 05/06/2023 1 [place] [id number] Shania A [facility] [id number] [facility] 02/24/2024 1 [employer] (MEDICARE REPLACEMENT/AD VANTAGE - PPO) [facility] [id number] [facility] 03/03/2024 1 [employer] (MEDICARE REPLACEMENT/AD VANTAGE - PPO) [facility] [id number] [facility] 05/05/2024 1 [employer] (MEDICARE REPLACEMENT/AD VANTAGE - PPO) [facility] [id number] [facility] Notes Date Note Type Note Provider Name and Address Organization Details Recorded Time 03/18/2023 text/html 67-year-old fema le here for evaluation of edema/SOBReferred by Janis Feliciano APRN Peripheral edema much improved on Bumex 1 b.i.d. will ask to cut down to once daily or every other day. Blood pressure well controlledNo specific cardiovascular complaints today. No chest pain, shortness of breath, PND, orthopnea, palpitations, presyncope, syncope + JODY- on CPAP+ HLD- on statin+hypertension Echo 12/2022:Normal LV size with normal function. The ejection fraction is 65-70%.Normal diastolic function.There is moderate concentric LVH. Lupillo Gann MD [address] , [place], [address], [facility] - [place] & [place] 03/18/2023 14:46:59 05/06/2023 text/html Shania comes in today for a routine follow up. She was last seen 05/08/22. She has a motor tic disorder which has been managed with low dose klonopin for the last five years. She also has developed some mild ET in her hands in the last couple of years.Today she reports no new concerns today. She will have bad days when she has stress but overall she feels the tics are stable. She estimates having a bad day 1-2 times a week. She does feel that her being worked up for prostate cancer has really stressed her.She has not noticed her hand tremors to get much worse. She primarily notices this when she is eating. Franny Quiroga DO [address] , [place], [address], [facility] & [place] 05/06/2023 11:34:09 02/24/2024 text/html patient is a 68 year old white women presenting to clinic for bilateral leg pain and swelling x2 years. She was referred to our clinic by [facility]. She is not a diabetic. Denies any injury to the legs. SHe has a long history of work that required her to be on her feet. She denies any fevers. Denies any nausea/vomiting/diar little. Recent workup with vascular was negative for deep or superficial reflux. They recommended sclerotherapy for her bleeding spider veins. Bertha Edwards APRN [address], [place], [address], [facility] & [place] 02/24/2024 13:18:52 03/03/2024 text/html patient is a 68 year old white women presenting to clinic for bilateral leg pain and swelling x2 years. She was referred to our clinic by [facility]. She is not a diabetic. Denies any injury to the legs. She has a long history of work that required her to be on her feet. She denies any fevers. Denies any nausea/vomiting/diar little. Recent workup with vascular was negative for deep or superficial reflux. They recommended sclerotherapy for her bleeding spider veins. Bertha Edwards APRN [address], [place], [address], [facility] & [place] 03/03/2024 13:37:41 05/05/2024 text/html Shania comes in today for a routine follow up on her ET and motor tics. Today she reports her tics are under good control. She takes her clonazepam regularly because if she misses a dose her tics will get worse. If she gets stressed her tics will flare up. Same thing with her tremors, it will come and go but has not progressed.She has been having issues with excessive swelling in her LLE. Her PCP has not been able to find a particular cause. She is wearing compression stockings. She had to stop ASA because she had a superficial blood vessel in her distal LLE bust open and she had to go to hospital due to uncontrolled bleeding. PRIOR VISIT: (05/06/23)Shania comes in today for a routine follow up. She was last seen 05/08/22. She has a motor tic disorder which has been managed with low dose klonopin for the last five years. She also has developed some mild ET in her hands in the last couple of years.Today she reports no new concerns today. She will have bad days when she has stress but overall she feels the tics are stable. She estimates having a bad day 1-2 times a week. She does feel that her being worked up for prostate cancer has really stressed her.She has not noticed her hand tremors to get much worse. She primarily notices this when she is eating. Franny Quiroga, DO [address] [facility], [place], [address], [place] - [facility] & [place] 05/05/2024 14:32:45 OBGyn Episode No OBEpisode recorded.
== END 2025-01-31 23:59 | disposition home or self-care (01) ==
LOC: RAD 12:44
PROVIDERS: PCP Family Medicine; Visit Provider Nurse Practitioner
DX: Z12.31 Encounter for screening mammogram for malignant neoplasm of breast (principal)
CPT/HCPCS: 77063; 77067

== ENCOUNTER 2025-02-22 10:29 | Day surgery (SDC) | payer MEDICARE, SELFPAY ==
[2025-02-22 10:40] VITALS: BP 109/54; PULSE 82; RESP 16; TEMP 36.4; O2SAT 98; BMI 44.4
[2025-02-22 10:46] VITALS: BP 133/56; PULSE 89; RESP 18; O2SAT 95
[2025-02-22] MEDS: DEXAMETHASONE 10MG/ML 1ML VIAL 10 MG (10:46)
[2025-02-22] MEDS: LIDOCAINE 1% 5ML PF VIAL 5 ML (10:47)
[2025-02-22] MEDS: BUPIVACAINE 0.25% 10ML INJ 25 MG IJ (10:47)
--- NOTE | 2025-02-22 10:54 | EXP.PAIN.PRO ---
Procedure Date: 02/22/25 Time: 10:40 Anesthesiologist:: Inderjit Collins CRNA Complications:: None Pre-procedure Diagnosis:: DJD bilateral knee. Chronic bilateral knee pain. Post-procedure Diagnosis:: Same. Indications for Procedure:: Patient is a very pleasant 69-year-old female who comes our clinic today for bilateral intra-articular knee injections of cortisone and local anesthetic. Patient describes bilateral knee pain as constant, dull, aching. Patient reports she is having difficulty with ambulation due to bilateral knee pain. She reports difficulty with flexion and/or extension. She rates her pain 7/10. Procedure Details:: Details of the procedure explained to the patient. The patient taken procedure room placed in the sitting position. The over the right knee was cleaned using chlorhexidine as a cleansing solution. Using a 22-gauge inch and half needle the right knee joint was accessed from the anterior lateral position. After negative aspiration 4 cc of 1% lidocaine +4 cc of 0.25% Marcaine and 40 mg of Depo-Medrol was injected. Patient tolerated procedure without difficulty. There are no complications. Details of the procedure explained to the patient. The patient taken procedure room placed in the sitting position. The over the left knee was cleaned using chlorhexidine as a cleansing solution. Using a 22-gauge inch and half needle the left knee joint was accessed from the anterior lateral position. After negative aspiration 4 cc of 1% lidocaine +4 cc of 0.25% Marcaine and 40 mg of Depo-Medrol was injected. Patient tolerated procedure without difficulty. There are no complications. Plan and Disposition:: Patient was discharged without incident.
[2025-02-22 10:55] VITALS: BP 127/83; PULSE 56; RESP 16; O2SAT 99
== END 2025-02-22 10:55 | disposition home or self-care (01) ==
PROVIDERS: PCP Family Medicine; Visit Provider Nurse Anesthetist, Certified Registered
DX: M17.0 Bilateral primary osteoarthritis of knee (principal); M25.561 Pain in right knee; M25.562 Pain in left knee; G89.29 Other chronic pain
CPT/HCPCS: 20610; J1100

== ENCOUNTER 2025-03-09 11:16 | Outpatient (POV) | payer MEDICARE, SELFPAY ==
[2025-03-09 11:25] VITALS: BP 116/74; PULSE 76; RESP 14; O2SAT 96; BMI 41.5
--- NOTE | 2025-03-09 12:17 | EXP.PAIN.SOA ---
[facility] Disclaimer: The information contained in this section may have been updated after the patient was seen, as this information can be updated by other users. Medical History Fatigue Wound of left lower extremity Obstructive sleep apnea She will need to contact her vendor in order to get her CPAP returned and a new machine in place. I do think this will help with her energy level when she is getting better rest. Edema of both lower extremities Abnormal electrocardiogram [ECG] [EKG] Other specified nonscarring hair loss Hypothyroidism Thyroid Nodule Thickened endometrium Cataract History of hypertension Pelvic pain Adjustment disorder Edema Osteoarthritis History of back pain Surgical History History of cardiac cath Hx of cataract removal with insertion of prosthetic lens Hx of breast reduction, elective Hx of tonsillectomy Hx of cholecystectomy History of back surgery History of carpal tunnel surgery Hx of rotator cuff surgery Hx of dilation and curettage Status post lumbar spinal fusion Family History Other Cancer Diabetes Hypertension Social History Smoking Status: Never smoker smoking status stop date: 1992 second hand exposure: Yes alcohol intake: never substance use type: denies use current occupational status: other Travel in the last 8 weeks?: None household members: spouse housing: house lives independently: No marital status: education level: high school service: No [place] [facility]: No current occupational exposures/hazards: No pets and animals: Yes pets and animals: dog(s) sexually active: No caffeine: No do you feel safe at home: Yes victim of physical abuse: No victim of emotional abuse: No victim of sexual abuse: No would you like helpful sources: No Have you lived/traveled outside [place] in past 30 days?: No Contact w/someone who lives/traveled outside US past 30 days?: No Exposure to someone with infectious disease in past 14 days?: No Do you have a fever (greater than 100.4 F or 38 C)?: No Have you tested positive for COVID-19?: No Exposed to someone with COVID-19 in past 14 days?: No Do you have a sore throat?: No Do you have a cough?: No Do you have any weakness?: No Do you have any diarrhea?: No Are you experiencing any unusual bleeding?: No Do you have any muscle aches/pain?: No Do you have any abdominal pain?: No Are you experiencing loss of taste or smell?: No PM Subjective & Objective Subjective Subjective:: Patient is a pleasant 69-year-old female who presents today for follow-up of bilateral intra-articular knee injections on 02/22/2025. Today she rates her pain a 5 out of 10. She denies any new trauma or injury. She does state that she has had at least 50% improvement following these injections and feels like it is still helping. She does state that it did take a couple days for it to kick in. Patient is currently managed with intrathecal morphine 2 mg/mL with a daily dose of 0.2821 mg/day. She denies any side effects. She states overall her pump is working great for her back. Her Lc has been reviewed and is appropriate. Review of Systems: General: No recent weight changes, no fever, no sleep disturbances Respiratory: No cough, no shortness of air, no recurring pulmonary infections Cardiovascular/peripheral vascular: No chest pain, no palpitations, no edema, no shortness of breath Gastrointestinal: No new onset incontinence, normal bowel movements reported Genitourinary: No new onset incontinence Musculoskeletal: Low back pain Psychiatric: [Normal mood/affect] Neurological: [Denies weakness in extremities], [denies balance issues] Pain at rest (0-10 scale): 5 Objective Objective:: Physical Exam: General: Alert and oriented x3, no acute distress, pleasant and cooperative Lungs: Respirations even and unlabored, symmetrical chest expansion Eyes: PERRL Musculoskeletal: Flexion and extension of lumbar [spine] somewhat guarded secondary to pain, [antalgic gait noted] Neurological: Speech clear, no gross sensory deficit Has patient had previous pain injection?: Yes Percent improvement in pain since last injection: 50% Conservative treatment options previously tried: Home exercise plan Length of treatment: Longer than 12-week Meds Home Medications and Allergies Home Medications ?Medication ?Instructions ?Recorded ?Confirmed ?Type clonazepam 0.5 mg tablet 0.5 mg PO BID NERVE TICK 02/26/19 03/09/25 History omeprazole 40 mg capsule,delayed 40 mg PO DAILY GERD 02/26/19 03/09/25 History release atorvastatin 20 mg tablet 20 mg PO HS Cholesterol 08/20/21 03/09/25 History morphine (PF) 1 mg/mL injection 0.105 mg continuous epidural CONT 05/19/23 03/09/25 History solution chronic pain fluticasone propionate 50 50 mcg intranasal DAILY 04/15/24 03/09/25 History mcg/actuation nasal spray,suspension montelukast 10 mg tablet 10 mg PO DAILY 04/15/24 03/09/25 History cholecalciferol (vitamin D3) 1,250 50,000 unit PO WEEKLY 04/22/24 03/09/25 History mcg (50,000 unit) capsule levothyroxine 50 mcg tablet 50 mcg PO DAILY hypothyroidism #90 06/01/24 03/09/25 Rx (Synthroid) tabs atomoxetine 80 mg capsule 80 mg PO ONCE 11/23/24 03/09/25 History furosemide 40 mg tablet (Lasix) 40 mg PO DAILY #30 tabs 01/10/25 03/09/25 Rx spironolactone 100 mg tablet 100 mg PO DAILY #30 tabs 01/24/25 03/09/25 Rx (Aldactone) New Prescriptions to Start Prescriptions: Allergies Allergy/AdvReac Type Severity Reaction Status Date / Time amoxicillin (From TRIMOX) Allergy Unknown Hives Verified 02/23/25 13:25 Penicillins (PENICILLINS) Allergy Unknown Hives Verified 02/23/25 13:25 Assessment and Plan *Assessment and plan (1) Bilateral knee pain: Status: Acute Category: Medical Code(s): M25.561 - Pain in right knee; M25.562 - Pain in left knee Plan Patient has had significant improvement following her knee injection and does not require any additional injection therapy at this time. I did discuss with the patient that in future that we can do this again, closer to April if she is starting to have more increased knee pain. We will follow-up at future visits. Patient will return to clinic for her next intrathecal refill. We will see the patient back in the clinic at the next intrathecal refill. Patient has been instructed to contact the clinic with any concerns before the next appointment. Dr. Miles has reviewed this note and agrees with this plan of care. This note was dictated using voice recognition software and make contain errors or omissions. -- It Is medically necessary for this patient to continue to have their intrathecal pump refilled at regular intervals. This patient had an intrathecal pain pump implanted after meeting criteria of chronic intractable pain for greater than 3 months and failing conservative treatments. Patient has committed and been compliant to the treatment plan and all planned follow up care. Since implantation of the intrathecal pain pump, the patient has had decreased pain and been more functional. Oral medications have been reduced including intake of oral opioids. Patient continues to do well with intrathecal therapy with decrease in pain symptoms and increase in functional status. Stopping intrathecal medications can lead to life threatening withdrawal, seizures, cardiac arrest, severe pain, and possible . Pumps that are not refilled at regular intervals can be damages and cause and need for replacement. We continually titrate dose and concentration to optimize pain relief and function. We are limited in concentration for certain drugs to safely deliver medications through the pump and stay within the recommendations from the Polyanalgesic Consensus Committee Guidelines. Depending on dose and concentration these pumps may need to be refilled sooner than 3 months as we titrate. A UDS is needed to verify patient's compliance with our office pain contract. This is ordered based off specific treatments related to chronic pain with the potential to abuse certain medications.
== END 2025-03-09 23:59 | disposition home or self-care (01) ==
LOC: SC.PAIN 11:19
PROVIDERS: PCP Family Medicine; Visit Provider Nurse Practitioner Family
DX: M25.561 Pain in right knee (principal); M25.562 Pain in left knee
CPT/HCPCS: 99212; G0463

== ENCOUNTER 2025-04-01 09:27 | Day surgery (SDC) | payer MEDICARE, SELFPAY ==
[2025-04-01 09:32] VITALS: BP 140/57; PULSE 75; RESP 16; O2SAT 96; BMI 40.0
--- NOTE | 2025-04-01 09:51 | EXP.HP ---
History of Present Illness *Admission Date: 04/01/25 *Reason for visit:: Intrathecal refill; DDD *History of present illness: Same [facility] Disclaimer: The information contained in this section may have been updated after the patient was seen, as this information can be updated by other users. Medical History Fatigue Wound of left lower extremity Obstructive sleep apnea She will need to contact her vendor in order to get her CPAP returned and a new machine in place. I do think this will help with her energy level when she is getting better rest. Edema of both lower extremities Abnormal electrocardiogram [ECG] [EKG] Other specified nonscarring hair loss Hypothyroidism Thyroid Nodule Thickened endometrium Cataract History of hypertension Pelvic pain Adjustment disorder Edema Osteoarthritis History of back pain Surgical History History of cardiac cath Hx of cataract removal with insertion of prosthetic lens Hx of breast reduction, elective Hx of tonsillectomy Hx of cholecystectomy History of back surgery History of carpal tunnel surgery Hx of rotator cuff surgery Hx of dilation and curettage Status post lumbar spinal fusion Family History Other Cancer Diabetes Hypertension Social History Smoking Status: Never smoker smoking status stop date: 1992 second hand exposure: Yes alcohol intake: never substance use type: denies use current occupational status: other Travel in the last 8 weeks?: None household members: spouse housing: house lives independently: No marital status: education level: high school service: No retirement: No current occupational exposures/hazards: No pets and animals: Yes pets and animals: dog(s) sexually active: No caffeine: No do you feel safe at home: Yes victim of physical abuse: No victim of emotional abuse: No victim of sexual abuse: No would you like helpful sources: No Have you lived/traveled outside [place] in past 30 days?: No Contact w/someone who lives/traveled outside [place] past 30 days?: No Exposure to someone with infectious disease in past 14 days?: No Do you have a fever (greater than 100.4 F or 38 C)?: No Have you tested positive for COVID-19?: No Exposed to someone with COVID-19 in past 14 days?: No Do you have a sore throat?: No Do you have a cough?: No Do you have any weakness?: No Do you have any diarrhea?: No Are you experiencing any unusual bleeding?: No Do you have any muscle aches/pain?: No Do you have any abdominal pain?: No Are you experiencing loss of taste or smell?: No Other Medical History Have you received the Flu Vaccine for this season: No Have you received the Pneumonia Vaccine: No Review of Systems Review of Systems Review of systems:: pertinent systems reviewed and negative unless documented below Review of systems (narrative): Review of Systems: General: No recent weight changes, no fever, no sleep disturbances Respiratory: No cough, no shortness of air, no recurring pulmonary infections Cardiovascular/peripheral vascular: No chest pain, no palpitations, no edema, no shortness of breath Gastrointestinal: No new onset incontinence, normal bowel movements reported Genitourinary: No new onset incontinence Musculoskeletal: Chronic back pain Psychiatric: [Normal mood/affect] Neurological: [Denies weakness in extremities], [denies balance issues] Meds Home Medications and Allergies Home Medications ?Medication ?Instructions ?Recorded ?Confirmed ?Type clonazepam 0.5 mg tablet 0.5 mg PO BID NERVE TICK 02/26/19 04/01/25 History omeprazole 40 mg capsule,delayed 40 mg PO DAILY GERD 02/26/19 04/01/25 History release atorvastatin 20 mg tablet 20 mg PO HS Cholesterol 08/20/21 04/01/25 History morphine (PF) 1 mg/mL injection 0.105 mg continuous epidural CONT 05/19/23 04/01/25 History solution chronic pain fluticasone propionate 50 50 mcg intranasal DAILY 04/15/24 04/01/25 History mcg/actuation nasal spray,suspension montelukast 10 mg tablet 10 mg PO DAILY 04/15/24 04/01/25 History cholecalciferol (vitamin D3) 1,250 50,000 unit PO WEEKLY 04/22/24 04/01/25 History mcg (50,000 unit) capsule levothyroxine 50 mcg tablet 50 mcg PO DAILY hypothyroidism #90 06/01/24 04/01/25 Rx (Synthroid) tabs atomoxetine 80 mg capsule 80 mg PO ONCE 11/23/24 04/01/25 History furosemide 40 mg tablet (Lasix) 40 mg PO DAILY #30 tabs 01/10/25 04/01/25 Rx spironolactone 100 mg tablet 100 mg PO DAILY #30 tabs 01/24/25 04/01/25 Rx (Aldactone) New Prescriptions to Start Prescriptions: Allergies Allergy/AdvReac Type Severity Reaction Status Date / Time amoxicillin (From TRIMOX) Allergy Unknown Hives Verified 02/23/25 13:25 Penicillins (PENICILLINS) Allergy Unknown Hives Verified 02/23/25 13:25 Exam Data for Last 24 hours Vital signs and Labs for Last 24 Hours: Pulse Resp BP Pulse Ox O2 Del Method 75 16 140/57 L 96 Room Air 04/01/25 09:32 04/01/25 09:32 04/01/25 09:32 04/01/25 09:32 04/01/25 09:32 I & O for Last 24 hours: Intake & Output 03/29/25 03/30/25 03/31/25 04/01/25 23:59 23:59 23:59 23:59 Weight 219 lb Constitutional Constitutional: no acute distress *Routine HEENT Exam Head: Present normocephalic and atraumatic Eye: Present PERRL ENT: Present mucous membranes moist *Routine Neck Exam Neck: Present supple *Routine Respiratory Exam Respiratory: Present CTA bilaterally *Routine Cardiovascular Exam Cardiovascular: Present RRR *Routine Abdominal Exam Abdominal: Present soft *Routine Rectal Exam Rectal:: deferred *Routine Genitalia Exam Genitalia:: normal female Routine Back/Spine/Pelvis Exam Back/Spine: Present pain with flexion *Routine Skin Exam Skin: Present intact *Routine Neurological Exam Neurological: Present alert and oriented X3 Routine Psychiatric Exam Psychiatric: Present normal affect and normal thought process Assessment and Plan *Assessment and plan (1) Degenerative disc disease, lumbar: Status: Acute Category: Medical Code(s): M51.369 - Other intervertebral disc degeneration, lumbar region without mention of lumbar back pain or lower extremity pain (2) Lumbar radiculopathy: Status: Acute Category: Medical Code(s): M54.16 - Radiculopathy, lumbar region Plan Patient has been instructed to contact the clinic with any concerns before the next appointment. Dr. Miles has reviewed this note and agrees with this plan of care. This note was dictated using voice recognition software and make contain errors or omissions. All injections are used with Lidocaine, Bupivacaine and dexamethasone. Occasionally urine drug screen is needed to verify patient's compliance with our office pain contract. This is ordered based off specific treatments related to chronic pain with the potential to abuse certain medications.
--- NOTE | 2025-04-01 09:55 | P.PCN_ITS ---
Procedure Date: 04/01/25 Time: 10:00 Anesthesiologist:: Suzi Renee APRN Complications:: None Pre-procedure Diagnosis:: Degenerative disc disease of lumbar spine with lumbar radiculopathy symptoms, bilateral knee pain Post-procedure Diagnosis:: Same Indications for Procedure:: Patient is a pleasant 69-year-old female who presents today for intrathecal refill and reprogram. Today she rates her pain a 4 out of 10 overall in her back. Patient states the pump is doing really well and denies any side effects. She is currently managed with morphine 2 mg/mL with a daily dose of 0.2821 mg/day. She denies any side effects. Patient does however right her right knee 5 out of 10. Patient states the pain is around the outer medial aspect and it does get worse with increased ambulation or activity. Patient does feel like this pain is interfering with her ability perform activities of daily living such as cooking and cleaning. Patient does state that she feels like that knee is just getting give out. Patient did previously have intra-articular knee injections that did really well in January and overall feels like it is still helping and the left however feels like the right is already worn off. Patient is interested in any help we may be able to provide. Her Lc has been reviewed and is appropriate. Physical Exam: General: Alert and oriented x3, no acute distress, pleasant and cooperative Lungs: Respirations even and unlabored, symmetrical chest expansion Eyes: PERRL Musculoskeletal: Flexion and extension of right knee somewhat guarded secondary to pain, [antalgic gait noted] Neurological: Speech clear, no gross sensory deficit Procedure Details:: Informed consent was obtained and the risk and benefits of the procedure were explained to the patient. The patient had noninvasive monitoring placed including noninvasive blood pressure cuff and pulse oximeter. Patient's pump was interrogated. The area over the pump was cleansed with chlorhexidine as a cleansing solution. In sterile fashion the pump was accessed with a 22-gauge needle. Approximately 6.5 mls of the pump solution was removed and discarded appropriately. The pump was then refilled with 20 mL's of morphine 2 mg/mL. The needle was withdrawn and a bandage was placed over the puncture site. The infusion rate was reprogrammed and continued at its current dosage. The patient tolerated well with no complication. Plan and Disposition:: Patient tolerated the procedure well with no complications and was discharged neurologically intact. Patient is having limited range of motion with point tenderness along her right knee. I did discuss with the patient that I do believe that she would benefit from a infrapatellar nerve block. Risk and benefits were discussed with the patient and she would like to proceed forward with this plan of care. Patient has tried and failed conservative therapy including oral medications, heat and ice, topicals, physical therapy and at home stretching exercise for longer than 12 weeks. Patient has had chronic knee pain for longer than 6 months. We will submit to insurance for the right infrapatellar nerve block. This will be done without fluoroscopic or ultrasound guidance. Patient will be also given her next refill appointment date. Patient will return to clinic on or before their next intrathecal refill date. We will see the patient back in the clinic at the next intrathecal refill. Patient has been instructed to contact the clinic with any concerns before the next appointment. Dr. Miles has reviewed this note and agrees with this plan of care. This note was dictated using voice recognition software and make contain errors or omissions. -- It Is medically necessary for this patient to continue to have their intrathecal pump refilled at regular intervals. This patient had an intrathecal pain pump implanted after meeting criteria of chronic intractable pain for greater than 3 months and failing conservative treatments. Patient has committed and been compliant to the treatment plan and all planned follow up care. Since implantation of the intrathecal pain pump, the patient has had decreased pain and been more functional. Oral medications have been reduced including intake of oral opioids. Patient continues to do well with intrathecal therapy with decrease in pain symptoms and increase in functional status. Stopping intr athecal medications can lead to life threatening withdrawal, seizures, cardiac arrest, severe pain, and possible . Pumps that are not refilled at regular intervals can be damages and cause and need for replacement. We continually titrate dose and concentration to optimize pain relief and function. We are limited in concentration for certain drugs to safely deliver medications through the pump and stay within the recommendations from the Polyan[employer] Consensus Committee Guidelines. Depending on dose and concentration these pumps may need to be refilled sooner than 3 months as we titrate. A UDS is needed to verify patient's compliance with our office pain contract. This is ordered based off specific treatments related to chronic pain with the potential to abuse certain medications.
[2025-04-01 09:56] VITALS: BP 132/63; PULSE 78; RESP 18; O2SAT 97
[2025-04-01 10:12] VITALS: BP 117/68; PULSE 72; RESP 16; O2SAT 94
== END 2025-04-01 10:12 | disposition home or self-care (01) ==
PROVIDERS: PCP Family Medicine; Visit Provider Nurse Practitioner Family
DX: M51.16 Intervertebral disc disorders with radiculopathy, lumbar region (principal); G47.33 Obstructive sleep apnea (adult) (pediatric); R60.0 Localized edema; E03.9 Hypothyroidism, unspecified; Z90.49 Acquired absence of other specified parts of digestive tract; Z98.1 Arthrodesis status; Z79.899 Other long term (current) drug therapy; Z88.1 Allergy status to other antibiotic agents; Z79.891 Long term (current) use of opiate analgesic; Z88.0 Allergy status to penicillin
CPT/HCPCS: 62370

== ENCOUNTER 2025-04-12 09:47 | Outpatient (CLI) | payer MEDICARE, SELFPAY ==
--- NOTE | 2025-04-12 09:49 | US_ITS ---
FINAL REPORT TECHNIQUE: Real-time grayscale and color ultrasound of the thyroid was performed. CLINICAL HISTORY: history of a thyroid nodule COMPARISON: 04/08/2024 FINDINGS: The thyroid gland measures 37 x 16 x 15 mm on the right and 37 x 17 x 12 mm on the left. The isthmus measures 3 mm. The parenchyma is unremarkable . Nodules: There is an 8 mm TR 3 nodule on the left. There is a 2nd 8 mm TR 3 nodule in the upper medial left lobe. These nodules are both solid, isoechoic to hyperechoic, with no calcification. IMPRESSION: Two TR 3 nodules on the left. No follow-up required per TI-RADS criteria. Reviewed, Interpreted and Dictated by Edgardo Valencia MD Transcribed by Julienne Bee Authenticated and [facility]
== END 2025-04-12 23:59 | disposition home or self-care (01) ==
LOC: RAD 09:48
PROVIDERS: PCP Family Medicine; Visit Provider Nurse Practitioner
DX: E04.2 Nontoxic multinodular goiter (principal); E03.9 Hypothyroidism, unspecified
CPT/HCPCS: 76536

== ENCOUNTER 2025-04-15 14:57 | Outpatient (CLI) | payer MEDICARE, SELFPAY ==
--- OUTSIDE RECORDS SUMMARY | 2025-04-15 15:00 | XMS_ITS | Data Portability ---
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 Plan of Treatment Reminders Order Date Submit Date Provider Last Modified By Organization Details Last Modified Time Details Appointments None recorded. Lab CBC w/ auto diff 2023 024 MURRAY [facility], [address], [place], [address], 4 08:24:44 CMP, serum or plasma 2023 024 MURRAY [facility], [address], [address], [place], [address], 4 08:24:46 erythrocyte sedimentati on rate by westergren method 2023 024 MARCEL [facility], [address], [address], [place], [address], 4 08:24:47 C reactive protein, QN, serum or plasma 2023 024 MARCEL [facility], [address], [address], [place], [address], 4 08:24:48 Referral None recorded. Procedures None recorded. Surgeries None recorded. Imaging None recorded. Medication Orders bumetanide 1 mg tablet 2022 023 [facility], [address] [place] [address] [place], [id number], 14:00:34 Patient TargetsNo targets recorded. Patient InstructionsNo instructions recorded. Reason for Referral None Reported. Results Created Date Observation Date Name Description Value Unit Range Abnormal Flag Note LastModifiedBy Organization Detail LastModifiedTime 02/24/20 24 02/25/2024 CBC WITH DIFFE RENTI AL/PL ATELE T WBC 7.7 x10e3 /uL 3.4-10 .8 Not Available [facility] ([facility]) [address] [place], [address], 02/25/2024 08:24:44 02/24/20 24 02/25/2024 CBC WITH DIFFE RENTI AL/PL ATELE T RBC 4.83 x10e6 /uL 3.77-5 .28 Not Available [facility] ([facility]) [address] [place], [address], 02/25/2024 08:24:44 02/24/20 24 02/25/2024 CBC WITH DIFFE RENTI AL/PL ATELE T hemoglobin 13.2 g/dL 11.1-1 5.9 Not Available [facility] ([facility]) [address] [place], [address], 02/25/2024 08:24:44 02/24/20 24 02/25/2024 CBC WITH DIFFE RENTI AL/PL ATELE T hematocrit 40.0 % 34.0-4 6.6 Not Available [facility] ([facility]) [address] [place], [address], 02/25/2024 08:24:44 02/24/20 24 02/25/2024 CBC WITH DIFFE RENTI AL/PL ATELE T MCV 83 fL 79-97 Not Available [facility] ([facility]) [address] [facility] [place], [address], 02/25/2024 08:24:44 02/24/20 24 02/25/2024 CBC WITH DIFFE RENTI AL/PL ATELE T MCH 27.3 pg 26.6-3 3.0 Not Available [facility] ([facility]) [address] [facility], [place], [address], 02/25/2024 08:24:44 02/24/20 24 02/25/2024 CBC WITH DIFFE RENTI AL/PL ATELE T MCHC 33.0 g/dL 31.5-3 5.7 Not Available [facility] ([facility]) [address] [facility], [place], [address], 02/25/2024 08:24:44 02/24/20 24 02/25/2024 CBC WITH DIFFE RENTI AL/PL ATELE T RDW 13.1 % 11.7-1 5.4 Not Available [facility] ([facility]) [address] [facility], [place], [address], 02/25/2024 08:24:44 02/24/20 24 02/25/2024 CBC WITH DIFFE RENTI AL/PL ATELE T platelets 238 x10e3 /uL 150-45 0 Not Available [facility] ([facility]) [address] [facility], [place], [address], 02/25/2024 08:24:44 02/24/20 24 02/25/2024 CBC WITH DIFFE RENTI AL/PL ATELE T neutrophils 58 % not estab. Not Available [facility] ([facility]) [address] [facility], [place], [address], 02/25/2024 08:24:44 02/24/20 24 02/25/2024 CBC WITH DIFFE RENTI AL/PL ATELE T lymphs 32 % not estab. Not Available [facility] ([facility]) [address] [place], [address], 02/25/2024 08:24:44 02/24/20 24 02/25/2024 CBC WITH DIFFE RENTI AL/PL ATELE T monocytes 7 % not estab. Not Available [facility] ([facility]) [address] [facility], [place], [address], 02/25/2024 08:24:44 02/24/20 24 02/25/2024 CBC WITH DIFFE RENTI AL/PL ATELE T eos 2 % not estab. Not Available [facility] ([facility]) [address] [facility], [place], [address], 02/25/2024 08:24:44 02/24/20 24 02/25/2024 CBC WITH DIFFE RENTI AL/PL ATELE T basos 0 % not estab. Not Available [facility] ([facility]) [address] [facility], [place], [address], 02/25/2024 08:24:44 02/24/20 24 02/25/2024 CBC WITH DIFFE RENTI AL/PL ATELE T immature cells ANGIOGRAPHY TECHNOLOGIST Not Available [facility] ([facility]) [address] [place], [address], 02/25/2024 08:24:44 02/24/20 24 02/25/2024 CBC WITH DIFFE RENTI AL/PL ATELE T neutrophils (absolute) 4.5 x10e3 /uL 1.4-7. 0 Not Available [facility] ([facility]) [address] [place], [address], 02/25/2024 08:24:44 02/24/20 24 02/25/2024 CBC WITH DIFFE RENTI AL/PL ATELE T lymphs (absolute) 2.5 x10e3 /uL 0.7-3. 1 Not Available [facility] ([facility]) [address] [place], [address], 02/25/2024 08:24:44 02/24/20 24 02/25/2024 CBC WITH DIFFE RENTI AL/PL ATELE T monocytes(ab solute) 0.5 x10e3 /uL 0.1-0. 9 Not Available [facility] ([facility]) [address] [facility], [place], [address], 02/25/2024 08:24:44 02/24/20 24 02/25/2024 CBC WITH DIFFE RENTI AL/PL ATELE T eos (absolute) 0.2 x10e3 /uL 0.0-0. 4 Not Available [facility] ([facility]) [address] [facility], [place], [address], 02/25/2024 08:24:44 02/24/20 24 02/25/2024 CBC WITH DIFFE RENTI AL/PL ATELE T baso (absolute) 0.0 x10e3 /uL 0.0-0. 2 Not Available [facility] ([facility]) [address] [facility], [place], [address], 02/25/2024 08:24:44 02/24/20 24 02/25/2024 CBC WITH DIFFE RENTI AL/PL ATELE T immature granulocytes 1 % not estab. Not Available [facility] ([facility]) [address] [facility], [place], [address], 02/25/2024 08:24:44 02/24/20 24 02/25/2024 CBC WITH DIFFE RENTI AL/PL ATELE T immature grans (abs) 0.1 x10e3 /uL 0.0-0. 1 Not Available [facility] ([facility]) [address] [place], [address], 02/25/2024 08:24:44 02/24/20 24 02/25/2024 CBC WITH DIFFE RENTI AL/PL ATELE T NRBC ANGIOGRAPHY TECHNOLOGIST Not Available [facility] ([facility]) [address] [place], [address], 02/25/2024 08:24:44 02/24/20 24 02/25/2024 CBC WITH DIFFE CONSTANCE AL/PL STEFFANY T hematology comments: ANGIOGRAPHY TECHNOLOGIST Not Available [facility] ([facility]) [address] [facility], [place], [address], 02/25/2024 08:24:44 02/24/20 24 02/25/2024 COMP. METAB OLIC PANEL (14) glucose 114 mg/dL 70-99 above high normal Not Available [facility] ([facility]) [address] [facility], [place], [address], 02/25/2024 08:24:45 02/24/20 24 02/25/2024 COMP. METAB OLIC PANEL (14) BUN 12 mg/dL 8-27 Not Available [facility] ([facility]) [address] [facility], [place], [address], 02/25/2024 08:24:45 02/24/20 24 02/25/2024 COMP. METAB OLIC PANEL (14) creatinine 0.81 mg/dL 0.57-1 .00 Not Available [facility] ([facility]) [address] [place], [address], 02/25/2024 08:24:45 02/24/20 24 02/25/2024 COMP. METAB OLIC PANEL (14) eGFR 79 mL/mi n/1.7 3 >59 Not Available [facility] ([facility]) [address] [facility], [place], [address], 02/25/2024 08:24:45 02/24/20 24 02/25/2024 COMP. METAB OLIC PANEL (14) BUN/creatini ne ratio 15 12-28 Not Available [facility] ([facility]) [address] [place], [address], 02/25/2024 08:24:45 02/24/20 24 02/25/2024 COMP. METAB OLIC PANEL (14) sodium 140 mmol/ L 134-14 4 Not Available [facility] ([facility]) [address] [facility] [place], [address], 02/25/2024 08:24:45 02/24/20 24 02/25/2024 COMP. METAB OLIC PANEL (14) potassium 4.2 mmol/ L 3.5-5. 2 Not Available [facility] ([facility] [address] [facility] [place], [address], 02/25/2024 08:24:45 02/24/20 24 02/25/2024 COMP. METAB OLIC PANEL (14) chloride 101 mmol/ L 96-106 Not Available [facility] ([facility]) [address] [place], [address], 02/25/2024 08:24:45 02/24/20 24 02/25/2024 COMP. METAB OLIC PANEL (14) carbon dioxide, total 24 mmol/ L 20-29 Not Available [facility] ([facility]) [address] [place], [address], 02/25/2024 08:24:45 02/24/20 24 02/25/2024 COMP. METAB OLIC PANEL (14) calcium 9.8 mg/dL 8.7-10 .3 Not Available [facility] ([facility]) [address] [facility] [place], [address], 02/25/2024 08:24:45 02/24/20 24 02/25/2024 COMP. METAB OLIC PANEL (14) protein, total 6.6 g/dL 6.0-8. 5 Not Available [facility] ([place] [facility]) [address] [facility] [place], [address], 02/25/2024 08:24:45 02/24/20 24 02/25/2024 COMP. METAB OLIC PANEL (14) albumin 3.9 g/dL 3.9-4. 9 Not Available [facility] ([facility]) [address] [facility], [place], [address], 02/25/2024 08:24:45 02/24/20 24 02/25/2024 COMP. METAB OLIC PANEL (14) globulin, total 2.7 g/dL 1.5-4. 5 Not Available [facility] ([facility]) [address] [facility], [place], [address], 02/25/2024 08:24:45 02/24/20 24 02/25/2024 COMP. METAB OLIC PANEL (14) A/G ratio 1.4 1.2-2. 2 Not Available [facility] ([facility]) [address] [facility] [place], [address], 02/25/2024 08:24:45 02/24/20 24 02/25/2024 COMP. METAB OLIC PANEL (14) bilirubin, total 0.4 mg/dL 0.0-1. 2 Not Available [facility] ([facility]) [address] [facility], [place], [address], 02/25/2024 08:24:45 02/24/20 24 02/25/2024 COMP. METAB OLIC PANEL (14) alkaline phosphatase 93 IU/L 44-121 Not Available [facility]) [address] [facility], [place], [address], 02/25/2024 08:24:45 02/24/20 24 02/25/2024 COMP. METAB OLIC PANEL (14) AST (SGOT) 23 IU/L 0-40 Not Available [facility] ([facility]) [address] [facility], [place], [address], 02/25/2024 08:24:45 02/24/20 24 02/25/2024 COMP. METAB OLIC PANEL (14) ALT (SGPT) 21 IU/L 0-32 Not Available [facility] ([facility]) [address] [facility], [place], [address], 02/25/2024 08:24:45 02/24/20 24 02/25/2024 SEDIM ENTAT ION RATE- WESTE RGREN sedimentatio n rate-westerg rubina 13 mm/HR 0-40 Not Available [facility] ([facility]) [address] [facility], [place], [address], 02/25/2024 08:24:47 02/24/20 24 02/25/2024 C-DEBRA CTIVE PROTE IN, QUANT C-reactive protein, quant 4 mg/L 0-10 Not Available [facility] ([facility]) [address] [facility], [place], [address], 02/25/2024 08:24:48 01/19/20 24 08/04/2023 MRI, cervi [...] Organization Details Recorded Time Motor tic disorder 037980254 Active 2021 Franny Quiroga DO [address] [facility], [place], [address] , [place] - [facility] & [place] 2 12:54:43 Edema of lower extremity 665535405 Active 2022 Lupillo Gann MD [address] [facility], [place], [address] , [place] - [facility] - [place] & [place] 3 16:14:23 Hyperlipidemi a 51390095 Active 2022 Lupillo Gann MD [address] [facility], [place], [address] , [place] - [facility] & [place] 3 16:19:20 Obstructive sleep apnea syndrome 70283917 Active 2022 Lupillo Gann MD [address], [place], [address] , [place] - [facility] [place] & [place] 3 16:20:37 Essential tremor 572201443 Active 2022 Franny Quiroga DO [address], [place], [address] , [place] [facility] [place] & [place] 3 09:19:11 Problem Notes None recorded. Procedures Surgical History Date Name Laterality Status Provider Name and Address Organization Details Recorded Time 12/06/19 22 completed Jade Ibrahim [facility] - [facility] - [place] & [place] 01/06/2023 15:37:14 02/10/20 20 Date of Last Colonoscopy completed Jade Ibrahim [facility] - [facility] - [place] & [place] 01/06/2023 15:37:14 10/27/19 20 Back Surgery completed Clarisa Chemacie [facility] - [facility] - [place] & [place] 05/06/2023 09:11:59 10/27/19 20 Carpal tunnel surgery completed Clarisamacie Chea [facility] - [facility] - [place] & [place] 05/06/2023 09:12:31 10/27/18 99 primary fusion of cervical spine completed Clarisa Chinedua [facility] - [facility] & [place] 05/06/2023 09:11:27 10/27/18 98 Tonsillectomy/Adeno idectomy completed Marisol Espinosa [facility] - [facility] & [place] 03/18/2023 14:31:08 10/27/18 92 Breast Surgery completed Clarisa Briseida [facility] - [facility] - [place] & [place] 05/06/2023 09:11:12 repair of musculotendinous cuff of shoulder completed Jade Ibrahim [facility] - [facility] - [place] & [place] 01/06/2023 16:02:53 cholecystectomy completed Jade MEDRANO - [facility] - [place] & [place] 01/06/2023 16:04:58 extraction of cataract completed Clarisa Goins [facility] - [facility] - [place] & [facility] 05/06/2023 09:15:15 Imaging Results None recorded. Procedure Notes None recorded. Medical Equipment None Reported. Allergies Allergen ID Allergen Name Allergen Category Reaction Reaction Severity Criticality Documentation Date Start Date Code Code System Note Provider Name and Address Organization Details Recorded Time 100126 amoxicill in trihydrat e medicatio n Not available Not available Not available 02/24/2024 21890 8 RxNorm [facility] Stallings [facility] & [place] 4 13:01:03 03212 acetazola mide medicatio n hives moderate high 01/06/2023 167 RxNorm [facility] Maldonado [facility] & [place] 3 15:58:16 Medications Name Sig Start Date [...] Not Available Vitals Date Recorded Body height Oxygen saturation Oxygen saturation in Arterial blood by Pulse oximetry Heart rate Body temperature Body mass index (BMI) Body weight Systolic blood pressure Diastolic blood pressure Provider Name and Address Organization Details Last Updated DateTime 4 154.94 cm 98 % 98 % 86 /min 97.9 [degF] 43.5 kg/m2 052651. 25 g 130 mm[Hg] 86 mm[Hg] Cleo Vonda [facility] & [place] 4 13:00:35 Date Recorded Body height Oxygen saturation Oxygen saturation in Arterial blood by Pulse oximetry Body temperature Body mass index (BMI) Body weight Heart rate Systolic blood pressure Diastolic blood pressure Provider Name and Address Organization Details Last Updated DateTime 4 154.94 cm 97 % 97 % 97.6 [degF] 43.6 kg/m2 838875. 4 g 57 /min 118 mm[Hg] 64 mm[Hg] Amarilys Abdulkadir [facility] & [place] 4 13:22:46 Date Recorded Body height Body mass index (BMI) Body weight Oxygen saturation Oxygen saturation in Arterial blood by Pulse oximetry Heart rate Systolic blood pressure Diastolic blood pressure Provider Name and Address Organization Details Last Updated DateTime 3 154.94 cm 44.4 kg/m2 911124. 21 g 97 % 97 % 76 /min 134 mm[Hg] 80 mm[Hg] Marisol Jesús [facility] & [place] 3 14:34:01 Date Recorded Body height Body mass index (BMI) Body weight Heart rate Systolic blood pressure Diastolic blood pressure Provider Name and Address Organization Details Last Updated DateTime 4 154.94 cm 45.2 kg/m2 517456. 58 g 60 /min 136 mm[Hg] 64 mm[Hg] Clarisa MEDRANO [facility] & [place] 4 14:03:22 Date Recorded Body height Body mass index (BMI) Body weight Heart rate Oxygen saturation Oxygen saturation in Arterial blood by Pulse oximetry Systolic blood pressure Diastolic blood pressure Provider Name and Address Organization Details Last Updated DateTime 3 154.94 cm 45.3 kg/m2 263704. 73 g 70 /min 96 % 96 % 130 mm[Hg] 84 mm[Hg] Clarisa MEDRANO [facility] & [place] 3 09:07:40 Social History Question Answer Notes LastModified by [employer] Details LastModified Time Tobacco Smoking Status Former Smoker [email or web address] [place] 01/06/2023 15:36:21 Do You Have An Advance Directive? Yes [email or web address] Information not available 01/06/2023 Are You Blind Or Do You Have Difficulty Seeing? No [email or web address] Information not available 01/06/2023 What Is Your Level Of Caffeine Consumption? Occasional Information not available 05/06/2023 What Was The Date Of Your Most Recent Tobacco Screening? 04/01/1992 [email or web address] Information not available 01/06/2023 Do You Have Any Pets? Yes Information not available 05/06/2023 What Is Your Relationship Status? Lives In A House With Information not available 05/06/2023 Are You Passively Exposed To Smoke? Yes [email or web address] Information not available 01/06/2023 How Much Tobacco Do You Smoke? 0.5 PPD Information not available 01/06/2023 How Many Years Have You Smoked Tobacco? 12 [email or web address] Information not available 01/06/2023 Are You Currently In School? No Diploma Information not available 05/06/2023 Sex: Unknown Functional Status Question Answer Note LastModified by [employer] ion Details LastModified Time Do you use any illicit or recreational drugs? No [email or web address] Information not available 01/06/2023 What is your level of alcohol consumption? None [email or web address] Information not available 01/06/2023 Do you or have you ever used smokeless tobacco? Never used smokeless tobacco [email or web address] Information not available 01/06/2023 Are you currently employed? No social security Information not available 05/06/2023 What is your exercise level? Occasional [email or web address] Information not available 01/06/2023 Mental Status Question Answer Note LastModified by Organization D etails LastModified Time Do you feel stressed (tense, restless, nervous, or anxious, or unable to sleep at night)? [id number] [email or web address] Information not available 01/06/2023 Family History Relationship Description Onset Age of this Age Resolved Age Notes LastModified by Organization Details LastModified Time Mother Essential hypertension [email or web address] Not available 12:52:28 Mother Hypercholest erolemia [email or web address] Not available 12/25 16:01:31 Medical History Condition Response Other N Spine Problems Y Obstructive Sleep Apnea Y Vision or Eye Problems Y Arthritis Y Back Problems Y Thyroid Problems Y Neurological Problems Y Hyperlipidemia Y Reflux/GERD Y Hypertension Y Gynecological History Statement/Question Response Date of Last Colonoscopy 02/10/2020 12/06/2021 Sexually Active? N Obstetrics History GPAL:G 0 P 0 0 0 0 Past Encounters Encounter ID Performer Location Encounter Start Date Encounter Closed Date Diagnosis/Indication Diagnosis SNOMED-CT Code Diagnosis ICD10 Code Diagnosis Note [id number] Lupillo Gann MD [facility] [address] [facility] [address] [place] [address] 01/06/2023 14:28:25 01/06/2023 16:24:59 Edema of lower extremity 755460200 R60.0 We will add Bumex. Echo to evaluate EF, pulmonary pressures diastolic function. Hyperlipidemia 41972998 E78.5 Continue statin Low fat/carboh ydrate diet Increase exercise Lose weight Obstructiv e sleep apnea syndrome 04092688 G47.33 on CPAP [id number] Lupillo Gann MD [facility] [address] [facility] [address] [place] [address] 02/04/2023 15:19:31 02/04/2023 16:27:43 Edema of lower extremity 526335145 R60.0 We will increase Bumex 1mg BID . Will add Zaroxolyn at next visit if still no relief. Low-salt diet. Fluid restrict to 64 oz a day.Echo was fine . This likely multifacto rial including venous insufficie ncy , obesity all contributi ng. Hyperlipidemia 02557163 E78.5 Continue statin Low fat/carboh ydrate diet Increase exercise Lose weight Obstructiv e sleep apnea syndrome 42100431 G47.33 on CPAP Body mass index 30+ - obesity 166616046 Z68.42 Low-carboh ydrate and low-fat diet Increase exercise to 30 minutes a day. Increase fruits and fresh vegetable intake and decrease processed foods and sugars [id number] Lupillo Gann MD [facility] [address] [place] [address] 03/18/2023 14:13:54 03/18/2023 15:34:10 Edema of lower extremity 862758909 R60.0 continue Bumex 1mg , can decrease to every other day p.r.n.Low- salt diet. Fluid restrict to 64 oz a day.This likely multifacto rial including venous insufficie ncy , obesity all contributi ng. Hyperlipidemia 65262248 E78.5 Continue statin Low fat/carboh ydrate diet Increase exercise Lose weight Obstructiv e sleep apnea syndrome 48568424 G47.33 on CPAP Body mass index 30+ - obesity 582304674 Z68.42 Low-carboh ydrate and low-fat diet Increase exercise to 30 minutes a day. Increase fruits and fresh vegetable intake and decrease processed foods and sugars [id number] DO RACHANA Elizabeth [facility] [address] [place] [address] 05/06/2023 09:00:58 05/06/2023 09:29:44 Motor tic disorder 234989332 F95.8 Chronic condition that has progressed of late. She will continue with the current klonopin dose. Will monitor and if her bad days increase will consider adjusting her dose. Essential tremor 9295741 09 G25.0 Chronic condition that is stable. No indication for medication s at this time. Behavioral management strategies reviewed. [id number] [facility] [address] [place] [address] 02/24/2024 12:51:30 02/24/2024 13:17:29 Swelling of bilateral lower limbs 537283221 M79.89 Complete bilateral duplex scan of extremity veins completed on 01/15/24 was negative for Thrombus. Negative for venous insufficie ncy. Based on history and exam, I do not think this is infectious .Will check basic lab work and will check inflammato ry markers. Will see patient back in 1 week. Recommend regular compressio n stocking use and elevation of the extremitie s. [id number] [facility] [address] [place] [address] 03/03/2024 13:14:02 03/03/2024 13:30:08 Swelling of bilateral lower limbs 293784863 M79.89 Complete bilateral duplex scan of extremity [...] ups with PCP and Vascular. Stasis dermatitis 586689 05 I87.2 see above. [id number] DO RACHANA Elizabeth [facility] [address] [facility],[address] [place] [address] 05/05/2024 13:52:47 05/05/2024 14:33:25 Motor tic disorder 051354400 F95.8 Chronic condition that is stable with her medication . She will continue with the current klonopin dose. She does not need refills today. She will check with her PCP to see if they will take over her refills once I am gone. Essential tremor 6468074 09 G25.0 Chronic condition that is stable. No indication for medication s at this time. Behavioral management strategies reviewed. Health Concerns Section Related Observation LastModified by Organization Detai ls LastModified Time None Recorded Concern Status LastModified by Organization Details LastModified Time None Recorded Advance Directives Directive Y: Payers Insurance Date Sequence Insurance Name Policy Number Policy Govea Covered Member ID Govea Member ID Guarantor Name 05/07/2024 1 [employer] (MEDICARE REPLACEMENT/AD VANTAGE - PPO) [facility] [id number] [facility] 11/29/2019 1 [id number] [facility] [id number] [facility] 11/29/2019 1 [place] [facility] [id number] [facility] 01/14/2020 1 [employer] (PPO) Shania A [facility] [id number] [facility] 11/15/2020 1 [employer] (MEDICARE REPLACEMENT/AD VANTAGE - HMO) Shania A [facility] [id number] [facility] 11/15/2020 [employer] (MEDICARE REPLACEMENT/AD VANTAGE - PPO) Shania A [facility] [id number] [facility] 03/31/2020 1 [place] Shania [facility] [id number] [facility] 02/23/2024 1 [place]AC[place] [id number] Shania [facility] [id number] [facility] Notes Date Note Type Note Provider Name [...] is moderate concentric LVH. Lupillo Gann MD [address] [facility], [place], [address], [facility] 03/18/2023 14:46:59 05/06/2023 text/html Shania comes in [...] is eating. Franny Quiroga DO [address], [place], [address], [facility] & [place] 05/06/2023 11:34:09 02/24/2024 text/html patient is a 68 year old white women presenting to clinic for bilateral leg pain and swelling x2 years. She was referred to our clinic by [facility]. She is not a diabetic. Denies any injury to the legs. SHe has a long history of work that required her to be on her feet. She denies any fevers. Denies any nausea/vomiting/diar little. Recent workup with vascular was negative for deep or superficial reflux. They recommended sclerotherapy for her bleeding spider veins. Bertha Edwards APRN [address], [place], [id number], [facility] & [place] 02/24/2024 13:18:52 03/03/2024 text/html patient is a 68 year old white women presenting to clinic for bilateral leg pain and swelling x2 years. She was referred to our clinic by [facility]. She is not a diabetic. Denies any injury to the legs. She has a long history of work that required her to be on her feet. She denies any fevers. Denies any nausea/vomiting/diar little. Recent workup with vascular was negative for deep or superficial reflux. They recommended sclerotherapy for her bleeding spider veins. Bertha Edwards APRN [address], [place], [id number], [place] - [facility] - [place] & [place] 03/03/2024 13:37:41 05/05/2024 text/html Shania comes in [...] she is eating. Franny Quiroga, DO [address], [place], [address], [place] - [facility] & [place] 05/05/2024 14:32:45 OBGyn Episode No OBEpisode recorded.
[2025-04-15 17:59] LABS: Free T4 (Free Thyroxine) 0.99 ng/dl (0.78-2.19)
[2025-04-15 18:14] LABS: Thyroid Stimulating Hormone 1.73 uIU/mL (0.465-4.68)
== END 2025-04-15 23:59 | disposition home or self-care (01) ==
LOC: LAB 14:58
PROVIDERS: PCP Family Medicine; Visit Provider Nurse Practitioner
DX: E03.9 Hypothyroidism, unspecified (principal); E04.1 Nontoxic single thyroid nodule
CPT/HCPCS: 36415; 84439; 84443

== ENCOUNTER 2025-04-19 11:30 | Day surgery (SDC) | payer MEDICARE, SELFPAY ==
[2025-04-19 11:32] VITALS: BP 123/66; PULSE 65; RESP 18; O2SAT 96; BMI 42.3
--- NOTE | 2025-04-19 11:52 | EXP.PAIN.PRO ---
Procedure Date: 04/19/25 Time: 11:45 Anesthesiologist:: Inderjit Collins CRNA Complications:: None Pre-procedure Diagnosis:: DJD right knee. Chronic right knee pain. Post-procedure Diagnosis:: Same. Indications for Procedure:: Patient is a very pleasant 69-year-old female comes our clinic today for a right knee infrapatellar nerve block. Patient has responded well to intra-articular cortisone injections in the past. She describes her right knee pain as constant, dull, aching. She reports difficulty with ambulation due to right knee pain. She rates her pain 7/10. Procedure Details:: Details of the procedure explained to the patient. The patient taken procedure and placed in the sitting position. The over the right knee was cleaned using chlorhexidine as a cleansing solution. Using a 25-gauge inch and half needle the right infrapatellar branch of the saphenous nerve was accessed with ease. After negative aspiration 4 cc of 1% lidocaine +4 cc of 0.25% Marcaine and 10 mg of dexamethasone was injected incrementally. Patient tolerated procedure without difficulty. Dental complications. Plan and Disposition:: Patient was discharged without incident.
[2025-04-19 11:54] VITALS: BP 127/69; PULSE 64; RESP 16; O2SAT 98
[2025-04-19] MEDS: BUPIVACAINE 0.25% 10ML INJ 25 MG IJ (12:18)
[2025-04-19] MEDS: DEXAMETHASONE 10MG/ML 1ML VIAL 10 MG (12:18)
[2025-04-19] MEDS: LIDOCAINE 1% 5ML PF VIAL 5 ML (12:18)
[2025-04-19 12:19] VITALS: BP 123/66; PULSE 65; RESP 18; O2SAT 96
[2025-04-19 12:20] VITALS: BP 123/66; PULSE 65; RESP 18; O2SAT 96
== END 2025-04-19 11:54 | disposition home or self-care (01) ==
PROVIDERS: PCP Family Medicine; Visit Provider Nurse Anesthetist, Certified Registered
DX: M17.11 Unilateral primary osteoarthritis, right knee (principal); F43.20 Adjustment disorder, unspecified; I10 Essential (primary) hypertension; E03.9 Hypothyroidism, unspecified; G47.33 Obstructive sleep apnea (adult) (pediatric); Z88.1 Allergy status to other antibiotic agents; Z88.0 Allergy status to penicillin; Z79.891 Long term (current) use of opiate analgesic; Z79.899 Other long term (current) drug therapy
CPT/HCPCS: 64447; J0665; J1100; J2003

== ENCOUNTER 2025-05-11 08:32 | Outpatient (POV) | payer MEDICARE, SELFPAY ==
--- OUTSIDE RECORDS SUMMARY | 2025-05-11 08:35 | XMS_ITS ---
Author Organization Unknown Results OrderDate OrderTestName ResultName ResultDate Value Units Range AbnormalFlag ResultStatus ObservationNotes TestCode ResultCode DateRecorded AccessionNumber DiagnosticSectionCode DiagnosticSectionName Sequence Interpretation Cust om 07/27/2024 00:00:00 Glycohemoglobin (GHb),Total Glycohemoglobin (GHb),Total [id number]:00:00 5.9% Reviewed Jazmin Shane 07/27/2024 01:39:13 PM EDT > Glycohemoglobin (GHb),Total Coding Glycohemoglobin (GHb),Total 07/27/2024 00:00: 00:00:00FLU/[id number]:00:00FLU BReviewed Jazmin Shane 12/22/2024 02:14:39 PM EST > Coding FLU/COVID 12/22/2024 00:00: 00:00:00Glycohemoglobin (GHb),TotalGlycohemoglobin (GHb),Qgjdg0767-89-91K29:00:006.1RJazmin Avila 04/20/2025 02:02:48 PM EDT > Coding Glycohemoglobin (GHb),Total Coding Glycohemoglobin (GHb),Total 04/20/2025 00:00:00004/28/2025 00:00:00Urinalysis, CompleteGlucose [id number]:00:00NEGJazmin Calvert 04/28/2025 10:59:42 AM EDT > Coding Urinalysis, Complete Coding Glucose 04/28/2025 00:00:00004/28/2025 00:00:00Urinalysis, CompleteBilirubin [id number]:00:00SMJazmin Huizar 04/28/2025 10:59:42 AM EDT > Coding Urinalysis, Complete Coding Bilirubin 04/28/2025 00:00: 00:00:00Urinalysis, CompleteKetones 5240-47-14J89:00:00TRACERevieJazmin Hui 04/28/2025 10:59:42 AM EDT > Coding Urinalysis, Complete Coding Ketones 04/28/2025 00:00: 00:00:00Urinalysis, CompleteSpecific [place] 1430-42-14D21:00:001.025Jazmin Calvert 04/28/2025 10:59:42 AM EDT > Coding Urinalysis, Complete Coding Specific [place] 04/28/2025 00:00: 00:00:00Urinalysis, CompleteOccult Blood [id number]:00:00NEGJazmin Calvert 04/28/2025 10:59:42 AM EDT > Coding Urinalysis, Complete Coding Occult Blood 04/28/2025 00:00: 00:00:00Urinalysis, [id number]:00:00 6.0ReJazmin Laguerre 04/28/2025 10:59:42 AM EDT > Coding Urinalysis, Complete Coding pH 04/28/2025 00:00: 00:00:00Urinalysis, CompleteProtein [id number]:00:0030ReJazmin Laguerre 04/28/2025 10:59:42 AM EDT > Coding Urinalysis, Complete Coding Protein 04/28/2025 00:00: 00:00:00Urinalysis, CompleteUrobilinogen,Semi-Qn [id number]:00:001.0Jazmin Calvert 04/28/2025 10:59:42 AM EDT > Coding Urinalysis, Complete Coding Urobilinogen,Semi-Qn 04/28/2025 00:00:00004/28/2025 00:00:00Urinalysis, CompleteNitrite, Urine [id number]:00:00NEGJazmin Calvert 04/28/2025 10:59:42 AM EDT > Coding Urinalysis, Complete Coding Nitrite, Urine 04/28/2025 00:00: 00:00:00Urinalysis, CompleteWBC Esterase [id number]:00:00SMJazmin Huizar 04/28/2025 10:59:42 AM EDT > Coding Urinalysis, Complete Coding WBC Esterase 04/28/2025 00:00: 00:00:00Glycohemoglobin (GHb),TotalGlycohemoglobin (GHb),[id number]:00:006.1RJazmin Avila 04/28/2025 11:07:10 AM EDT > Coding Glycohemoglobin (GHb),Total Coding Glycohemoglobin (GHb),Total 04/28/2025 00:00:00
--- NOTE | 2025-05-11 09:17 | EXP.PAIN.PRO ---
Procedure Date: 05/11/25 Time: 09:00 Anesthesiologist:: Suzi Renee APRN Complications:: None Pre-procedure Diagnosis:: Degenerative disc disease of lumbar spine, chronic back pain, chronic right knee pain Post-procedure Diagnosis:: Same Indications for Procedure:: Patient is a pleasant 69-year-old female who presents today for follow-up of her right infrapatellar nerve block on 04/19/2025. Today she states that she had about 90% improvement following this injection however it only seem to really last about 3 days. Patient does state that she is back to her baseline today. She states that due to the worsening knee pain she feels like it does aggravate her back and is having more issues with her back overall rating it an 8 out of 10 in combination with the knee pain. Patient is currently managed with morphine 2 mg/mL with a daily dose of 0.28 to 1 mg/day. She denies any side effects. Her Lc has been reviewed and is appropriate. Physical Exam: General: Alert and oriented x3, no acute distress, pleasant and cooperative Lungs: Respirations even and unlabored, symmetrical chest expansion Eyes: PERRL Musculoskeletal: Flexion and extension of lumbar [spine] somewhat guarded secondary to pain, [antalgic gait noted] Neurological: Speech clear, no gross sensory deficit Procedure Details:: Informed consent was obtained and the risk and benefits of the procedure were explained to the patient. Patient did have noninvasive monitoring was placed including noninvasive blood pressure cuff and pulse oximeter. Patient's pump was interrogated and was reprogrammed to morphine 0.3105 mg/day. The patient tolerated the procedure well with no complications. Plan and Disposition:: Patient tolerated the procedure well with no complications and was discharged neurologically intact. We did discuss the possibility of sending a referral to orthopedics however due to her insurance being [employer] she was counseled that they do not cover the gel injections. Patient states that as of right now there is no point in sending her on to orthopedics then. I will order the patient a compounded cream. Patient will return to clinic on or before their next intrathecal refill date. We will see the patient back in the clinic at the next intrathecal refill. Patient has been instructed to contact the clinic with any concerns before the next appointment. Dr. Miles has reviewed this note and agrees with this plan of care. This note was dictated using voice recognition software and make contain errors or omissions. -- It Is medically necessary for this patient to continue to have their intrathecal pump refilled at regular intervals. This patient had an intrathecal pain pump implanted after meeting criteria of chronic intractable pain for greater than 3 months and failing conservative treatments. Patient has committed and been compliant to the treatment plan and all planned follow up care. Since implantation of the intrathecal pain pump, the patient has had decreased pain and been more functional. Oral medications have been reduced including intake of oral opioids. Patient continues to do well with intrathecal therapy with decrease in pain symptoms and increase in functional status. Stopping intrathecal medications can lead to life threatening withdrawal, seizures, cardiac arrest, severe pain, and possible . Pumps that are not refilled at regular intervals can be damages and cause and need for replacement. We continually titrate dose and concentration to optimize pain relief and function. We are limited in concentration for certain drugs to safely deliver medications through the pump and stay within the recommendations from the Polyanalgesic Consensus Committee Guidelines. Depending on dose and concentration these pumps may need to be refilled sooner than 3 months as we titrate. A UDS is needed to verify patient's compliance with our office pain contract. This is ordered based off specific treatments related to chronic pain with the potential to abuse certain medications.
[2025-05-11 09:33] VITALS: BP 119/56; PULSE 68; RESP 18; O2SAT 97; BMI 42.1
== END 2025-05-11 23:59 | disposition home or self-care (01) ==
PROVIDERS: PCP Family Medicine; Visit Provider Nurse Practitioner Family
DX: M51.360 Other intervertebral disc degeneration, lumbar region with discogenic back pain only (principal); M25.561 Pain in right knee; G89.29 Other chronic pain; Z79.891 Long term (current) use of opiate analgesic
CPT/HCPCS: 62368; 99213; G0463

== ENCOUNTER 2025-06-17 08:47 | Day surgery (SDC) | payer MEDICARE, SELFPAY ==
--- NOTE | 2025-06-17 08:56 | EXP.PM.HP ---
History of Present Illness *Admission Date: 06/17/25 *Reason for visit:: Intrathecal refill; DDD *History of present illness: Same [facility] Disclaimer: The information contained in this section may have been updated after the patient was seen, as this information can be updated by other users. Medical History Fatigue Wound of left lower extremity Obstructive sleep apnea She will need to contact her vendor in order to get her CPAP returned and a new machine in place. I do think this will help with her energy level when she is getting better rest. Edema of both lower extremities Abnormal electrocardiogram [ECG] [EKG] Other specified nonscarring hair loss Hypothyroidism Thyroid Nodule Thickened endometrium Cataract History of hypertension Pelvic pain Adjustment disorder Edema Osteoarthritis History of back pain Surgical History History of cardiac cath Hx of cataract removal with insertion of prosthetic lens Hx of breast reduction, elective Hx of tonsillectomy Hx of cholecystectomy History of back surgery History of carpal tunnel surgery Hx of rotator cuff surgery Hx of dilation and curettage Status post lumbar spinal fusion Family History Other Cancer Diabetes Hypertension Social History Smoking Status: Never smoker smoking status stop date: 1992 second hand exposure: Yes alcohol intake: never substance use type: denies use current occupational status: other Travel in the last 8 weeks?: None household members: spouse housing: house lives independently: No marital status: education level: high school service: No mcc: No current occupational exposures/hazards: No pets and animals: Yes pets and animals: dog(s) sexually active: No caffeine: No do you feel safe at home: Yes victim of physical abuse: No victim of emotional abuse: No victim of sexual abuse: No would you like helpful sources: No Have you lived/traveled outside [place] in past 30 days?: No Contact w/someone who lives/traveled outside US past 30 days?: No Exposure to someone with infectious disease in past 14 days?: No Do you have a fever (greater than 100.4 F or 38 C)?: No Have you tested positive for COVID-19?: No Exposed to someone with COVID-19 in past 14 days?: No Do you have a sore throat?: No Do you have a cough?: No Do you have any weakness?: No Do you have any diarrhea?: No Are you experiencing any unusual bleeding?: No Do you have any muscle aches/pain?: No Do you have any abdominal pain?: No Are you experiencing loss of taste or smell?: No Other Medical History Have you received the Flu Vaccine for this season: Yes Have you received the Pneumonia Vaccine: Yes Review of Systems Review of Systems Review of systems:: pertinent systems reviewed and negative unless documented below Review of systems (narrative): Review of Systems: General: No recent weight changes, no fever, no sleep disturbances Respiratory: No cough, no shortness of air, no recurring pulmonary infections Cardiovascular/peripheral vascular: No chest pain, no palpitations, no edema, no shortness of breath Gastrointestinal: No new onset incontinence, normal bowel movements reported Genitourinary: No new onset incontinence Musculoskeletal: Chronic back pain Psychiatric: [Normal mood/affect] Neurological: [Denies weakness in extremities], [denies balance issues] Meds Home Medications and Allergies Home Medications ?Medication ?Instructions ?Recorded ?Confirmed ?Type clonazepam 0.5 mg tablet 0.5 mg PO BID NERVE TICK 02/26/19 05/11/25 History omeprazole 40 mg capsule,delayed 40 mg PO DAILY GERD 02/26/19 05/11/25 History release atorvastatin 20 mg tablet 20 mg PO HS Cholesterol 08/20/21 05/11/25 History morphine (PF) 1 mg/mL injection 0.105 mg continuous epidural CONT 05/19/23 05/11/25 History solution chronic pain fluticasone propionate 50 50 mcg intranasal DAILY 04/15/24 05/11/25 History mcg/actuation nasal spray,suspension montelukast 10 mg tablet 10 mg PO DAILY 04/15/24 05/11/25 History cholecalciferol (vitamin D3) 1,250 50,000 unit PO WEEKLY 04/22/24 05/11/25 History mcg (50,000 unit) capsule atomoxetine 80 mg capsule 80 mg PO ONCE 11/23/24 05/11/25 History furosemide 40 mg tablet (Lasix) 40 mg PO DAILY #90 tabs 05/02/25 05/11/25 Rx spironolactone 100 mg tablet 100 mg PO DAILY #90 tabs 05/02/25 05/11/25 Rx (Aldactone) levothyroxine 50 mcg tablet See Rx Instructions .Route 05/23/25 Rx .COMPLEX #90 tabs New Prescriptions to Start Prescriptions: Allergies Allergy/AdvReac Type Severity Reaction Status Date / Time amoxicillin (From TRIMOX) Allergy Unknown Hives Verified 04/18/25 13:44 Penicillins (PENICILLINS) Allergy Unknown Hives Verified 04/18/25 13:44 Exam Constitutional Constitutional: no acute distress *Routine HEENT Exam Head: Present normocephalic and atraumatic Eye: Present PERRL ENT: Present mucous membranes moist *Routine Neck Exam Neck: Present supple *Routine Respiratory Exam Respiratory: Present CTA bilaterally *Routine Cardiovascular Exam Cardiovascular: Present RRR *Routine Abdominal Exam Abdominal: Present soft *Routine Rectal Exam Rectal:: deferred *Routine Genitalia Exam Genitalia:: deferred Routine Back/Spine/Pelvis Exam Back/Spine: Present pain with flexion *Routine Skin Exam Skin: Present intact and warm *Routine Neurological Exam Neurological: Present alert and oriented X3 Routine Psychiatric Exam Psychiatric: Present normal affect and normal thought process Assessment and Plan *Assessment and plan (1) Bilateral knee pain: Status: Acute Category: Medical Code(s): M25.561 - Pain in right knee; M25.562 - Pain in left knee (2) Degenerative disc disease, lumbar: Status: Acute Category: Medical Code(s): M51.369 - Other intervertebral disc degeneration, lumbar region without mention of lumbar back pain or lower extremity pain
--- NOTE | 2025-06-17 08:57 | P.PCN_ITS ---
Procedure Date: 06/17/25 Time: 09:09 Anesthesiologist:: Suzi Renee APRN Complications:: None Pre-procedure Diagnosis:: Degenerative disc disease of lumbar spine with lumbar radiculopathy symptoms, chronic right knee pain Post-procedure Diagnosis:: Same Indications for Procedure:: Patient is a pleasant 69-year-old female who presents today for intrathecal refill and reprogram. Today she rates her pain a 4 out of 10 in her back but does state that she is still having quite a bit of pain in her knees. Patient did try to get the gel injections but supposedly was not covered by her insurance.Patient is currently managed with morphine 2 mg/mL with a daily dose of 0.2821 milligrams per day. She denies any side effects. Her Lc has been reviewed and is appropriate. Physical Exam: General: Alert and oriented x3, no acute distress, pleasant and cooperative Lungs: Respirations even and unlabored, symmetrical chest expansion Eyes: PERRL Musculoskeletal: Flexion and extension of lumbar [spine] somewhat guarded secondary to pain, [antalgic gait noted] Neurological: Speech clear, no gross sensory deficit Procedure Details:: Informed consent was obtained and the risk and benefits of the procedure were explained to the patient. The patient had noninvasive monitoring placed including noninvasive blood pressure cuff and pulse oximeter. Patient's pump was interrogated. The area over the pump was cleansed with chlorhexidine as a cleansing solution. In sterile fashion the pump was accessed with a 22-gauge needle. Approximately 8 mls of the pump solution was removed and discarded appropriately. The pump was then refilled with 20 mL's of morphine 2 mg/mL. The needle was withdrawn and a bandage was placed over the puncture site. The infusion rate was reprogrammed and continued at its current dosage. The patient tolerated well with no complication. Plan and Disposition:: Patient tolerated the procedure well with no complications and was discharged neurologically intact. Patient will return to clinic on or before their next intrathecal refill date. We will see the patient back in the clinic at the next intrathecal refill. Patient has been instructed to contact the clinic with any concerns before the next appointment. Dr. Miles has reviewed this note and agrees with this plan of care. This note was dictated using voice recognition software and make contain errors or omissions. -- It Is medically necessary for this patient to continue to have their intrathecal pump refilled at regular intervals. This patient had an intrathecal pain pump implanted after meeting criteria of chronic intractable pain for greater than 3 months and failing conservative treatments. Patient has committed and been compliant to the treatment plan and all planned follow up care. Since implantation of the intrathecal pain pump, the patient has had decreased pain and been more functional. Oral medications have been reduced including intake of oral opioids. Patient continues to do well with intrathecal therapy with decrease in pain symptoms and increase in functional status. Stopping intrathecal medications can lead to life threatening withdrawal, seizures, cardiac arrest, severe pain, and possible . Pumps that are not refilled at regular intervals can be damages and cause and need for replacement. We continually titrate dose and concentration to optimize pain relief and function. We are limited in concentration for certain drugs to safely deliver medications through the pump and stay within the recommendations from the Polyanalgesic Consensus Committee Guidelines. Depending on dose and concentration these pumps may need to be refilled sooner than 3 months as we titrate. A UDS is needed to verify patient's compliance with our office pain contract. T his is ordered based off specific treatments related to chronic pain with the potential to abuse certain medications.
[2025-06-17 09:00] VITALS: BP 135/54; PULSE 62; RESP 18; O2SAT 95; BMI 41.9
[2025-06-17 09:14] VITALS: BP 119/66; PULSE 74; RESP 16; O2SAT 96
[2025-06-17 09:19] VITALS: BP 126/78; PULSE 77; RESP 18; O2SAT 97
== END 2025-06-17 09:14 | disposition home or self-care (01) ==
PROVIDERS: PCP Family Medicine; Visit Provider Nurse Practitioner Family
DX: M51.16 Intervertebral disc disorders with radiculopathy, lumbar region (principal); M25.561 Pain in right knee; M25.562 Pain in left knee; G89.29 Other chronic pain; E03.9 Hypothyroidism, unspecified; I10 Essential (primary) hypertension; F43.20 Adjustment disorder, unspecified; Z79.890 Hormone replacement therapy; Z79.899 Other long term (current) drug therapy; Z88.0 Allergy status to penicillin; Z98.1 Arthrodesis status; Z45.1 Encounter for adjustment and management of infusion pump
CPT/HCPCS: 62370

== ENCOUNTER 2025-07-12 11:17 | Outpatient (CLI) | payer MEDICARE, SELFPAY ==
--- NOTE | 2025-07-12 11:21 | XR_ITS ---
FINAL REPORT CLINICAL HISTORY: left knee pain COMPARISON: None FINDINGS: LEFT KNEE 3 views of the left knee were obtained. There is no acute fracture or dislocation. There is moderate tricompartmental degenerative change. No joint effusion. IMPRESSION: Moderate degenerative change without acute bony abnormality. Reviewed, Interpreted and Dictated by Denis Higgins MD Transcribed by Julienne Bee Authenticated and [facility]
--- OUTSIDE RECORDS SUMMARY | 2025-07-12 11:22 | XMS_ITS | Clinical Summary ---
Author Organization [facility] Address [address] [place] [address] Care Team Providers Care Shop Welder Name Role Phone Marcos Nava MD Primary Care Provider Allergies Active Allergy Reactions Criticality Noted Date Comments Amoxicillin Hives Medium 09/20/2020 Medications multivitamin with minerals (WOMENS 50+ MULTI VITAMIN/MIN PO) Take 1 tablet by mouth Daily. Active levocetirizine (XYZAL) 5 MG tablet Take 5 mg by mouth Every Evening. Active Naphazoline-Phe niramine (Opcon-A) 0.027-0.315 % solution Apply 1 drop to eye(s) as directed by provider As Needed (DRY EYES). Active hydroCHLOROthia zide (HYDRODIURIL) 25 MG tablet Take 25 mg by mouth Daily. Active montelukast (SINGULAIR) 10 MG tablet Take 10 mg by mouth Every Night. Active potassium chloride (K-DUR,KLOR-CON ) 10 MEQ CR tablet Take 10 mEq by mouth 2 (Two) Times a Day. Active omeprazole (priLOSEC) 40 MG capsule Take 40 mg by mouth Daily. Active clonazePAM (KlonoPIN) 0.5 MG tablet Take 0.5 mg by mouth 2 (Two) Times a Day As Needed for Anxiety. Active atorvastatin (LIPITOR) 20 MG tablet Take 20 mg by mouth Daily. Active HYDROcodone-virgil taminophen (NORCO) 10-325 MG per tabletIndicatio ns:Spondylolist hesis at L4-L5 level Take 1 tablet by mouth Every 4 (Four) Hours As Needed for Moderate Pain for up to 40 doses. 40 tablet 2020 1:01 PM EST 2020 Active docusate sodium (Colace) 100 MG capsule Take 1 capsule by mouth 2 (Two) Times a Day. 60 capsule 2020 1:01 PM EST 2020 Active aspirin 81 MG EC tablet Take 1 tablet by mouth Daily. Resume 09/2809/27/2020 Active Active Problems Problem Noted Date Diagnosed Date Spondylolisthesis at L4-L5 level 09/25/2020 Hyperlipemia 09/25/2020 JODY on CPAP 09/25/2020 GERD (gastroesophageal reflux disease) 0 Anxiety 09/25/2020 HTN (hypertension) 09/25/2020 Elevated hemoglobin A1c 09/25/2020 S/P lumbar fusion, L4-5 decompression, fusion. 1 11/25/2019 Obesity 09/25/2020 Encounters Date Type Department Care Team Description 05/09/2025 10:59 AM EDT - 05/09/2025 11:59 PM EDT Hospital Encounter [facility] OUTPATIENT PHYSICAL THERAPY [address] [place] [address] Malena Berman, PT Lymphedema (Primary Dx) Discharge Disposition: Home or Self Care 05/09/2025 Travel from Last 3 Months Social History Tobacco Use Types Packs/Day Years Used Date Smoking Tobacco: Former Cigarettes 2 10 1 982 - 1991 Smokeless Tobacco: Never Tobacco Cessation:Counseling Given: No Comments:STILL EXPOSED TO SECOND HAND SMOKE. Alcohol Use Standard Drinks/Week Comments Never 0 (1 standard drink = 0.6 oz pur e alcohol) AUDIT-C Answer Date Recorded Q1: How often do you have a drink containing alc ohol? Never 09/25/2020 Average Number of Drinks Not on file 020 Frequency of Binge Drinking Not on file 08/29 Comments No Sex and Gender Information Value Date Recorded Sex Assigned at Not on file Legal Sex Female 1:51 PM EDT Gender Identity Not on file Sexual Orientation Not on file Last Filed Vital Signs Vital Sign Reading Time Taken Comments Blood Pressure 125/60 2020 1:00 PM EST Pulse 77 2020 7:00 AM EST Temperature 36.9 C (98.4 F) 2020 1:00 PM EST Respiratory Rate 16 2020 7:00 AM EST Oxygen Saturation 93% 2020 4:02 AM EST Inhaled Oxygen Concentration - - Weight 108 kg (237 lb) 09/25/2020 6:00 AM EST Height 154.9 cm (5' 1 ) 09/25/2020 6:00 AM EST Body Mass Index 44.78 09/25/2020 6:00 AM EST Plan of Treatment Health Maintenance Due Date Last Done Comments DXA SCAN 1955 LIPID PANEL 1955 MAMMOGRAM 1994 COLOGUARD 1999 COLON CANCER SCREENING 5 YEA R SIGMOIDOSCOPY 1999 CT COLONOGRAPHY 1999 FECAL OCCULT BLOOD TEST 1999 FIT Testing (1 year) 1999 ZOSTER VACCINE (1 of 2) 2004 ANNUAL PHYSICAL 09/20/2020 HEPATITIS C SCREENING 09/20/2020 COVID-19 Vaccine (2023-2 5 season) 2025 09/01/2024, 08/04/2023, 08/15/2022, Additional history exists PT PLAN OF CARE 07/06/2025 04/07/2025 INFLUENZA VACCINE 07/27/2025 09/01/2024, , 07/05/2020, Additional history exists COLONOSCOPY 02/09/2030 02/10/2020 COLORECTAL CANCER SCREENING 02/09/2030 TDAP/TD VACCINES (5 - Td or Tdap) 07/05/2030 07/05/2020, 04/13/2020, 12/30/2017, Additional history exists Pneumococcal Vaccine 50+ Completed 020, 10/18/2019, 09/17/2019, Additional history exists Medical Devices Implanted Type Area Industrial Technology Education Teacher Device Identifier Shelf Expiration Date Model / Serial / Lot Hemost Abs Surgifoam Sz100 8x12 10mm - [id number] Implanted:Qt y: 1 on 09/25/2020 by Mango Munoz MD at [facility] Implant N/A: Spine Lumbar ETHICON DIV OF J AND J 1973 / / NA Allogr Bone Vivigen Celluar Matrx Formable 5cc - [id number] - [id number] Implanted:Qt y: 1 on 09/25/2020 by Mango Munoz MD at [facility] Implant N/A: Spine Lumbar [facility] [id number] 08/18/2021 [id number] / [id number] / NA Scrw Expedium Pa Ti 6x40mm - [id number] Implanted:Qt y: 2 on 09/25/2020 by Mango Munoz MD at [facility] Implant N/A: Spine Lumbar DEPUY SPINE [id number] / / NA Scrw Expedium Pa Ti 6x45mm - [id number] Implanted:Qt y: 2 on 09/25/2020 by Mango Munoz MD at [facility] Implant N/A: Spine Lumbar DEPUY SPINE [id number] / / NA Haim Expedium Prebnt Ti 5.5x40mm - [id number] Implanted:Qt y: 2 on 09/25/2020 by Mango Munoz MD at [facility] Implant N/A: Spine Lumbar DEPUY SPINE [id number] / / NA Scrw Viper Innr St - [id number] Implanted:Qt y: 4 on 09/25/2020 by Mango Munoz MD at [facility] Implant N/A: Spine Lumbar DEPUY SPINE [id number] / / NA Spacr Tpal Peek [id number] - [id number] Implanted:Qt y: 1 on 09/25/2020 by Mango Munoz MD at [facility] Implant N/A: Spine Lumbar DEPUY SYNTHES [id number] / / NA Insurance [address] [place] [address] [facility] MEDICARE ADVANTAGE PPO Advance Directives * CPR (Attempt to Resuscitate) (Latest Code Status on File) Date Activated Date Inactivated Comments 09/25/2020 1:28 PM 2020 4:27 PM Question Answer Comments Code Status (Patient has no pulse and is not breathing): CPR (Attempt to Resuscitate) Medical Interventions (Patie nt has pulse or is breathing): Full Care Teams Shop Welder Relationship Specialty Start Date End Date Marcos Nava MD [address] [facility] [address] [place] [address] PCP - General Family Medicine 09/20/20
== END 2025-07-12 23:59 | disposition home or self-care (01) ==
LOC: RAD 11:18
PROVIDERS: PCP Family Medicine; Visit Provider Physician Assistant
DX: M17.12 Unilateral primary osteoarthritis, left knee (principal)
CPT/HCPCS: 73562

== ENCOUNTER 2025-07-26 15:00 | Outpatient (RCR) | payer MEDICARE, SELFPAY | END 2025-07-26 23:59 | disposition home or self-care (01) | LOC: PT 15:00 | PROVIDERS: PCP Family Medicine; Visit Provider Surgery | DX: I89.0 Lymphedema, not elsewhere classified (principal) | CPT/HCPCS: 97140; 97163 ==

== ENCOUNTER 2025-08-18 13:00 | Outpatient (RCR) | payer MEDICARE, SELFPAY | END 2025-08-18 23:59 | disposition home or self-care (01) | LOC: PT 13:00 | PROVIDERS: PCP Family Medicine; Visit Provider Surgery | DX: I89.0 Lymphedema, not elsewhere classified (principal); R03.0 Elevated blood-pressure reading, without diagnosis of hypertension; Z91.81 History of falling; Z87.891 Personal history of nicotine dependence | CPT/HCPCS: 97140 ==

== ENCOUNTER → 2025-09-09 12:39 | Outpatient (CLI) | payer MEDICARE, SELFPAY ==
--- OUTSIDE RECORDS SUMMARY | 2025-09-08 00:16 | XMS_ITS | Continuity of Care Document ---
Author Organization [facility] Phone Care Team Providers Care Quality Internship Name Role Phone MOLLY KING Primary Attending MOLLY KING Unavailable ROSALINO MARIE Primary Care MOLLY KING Admitting ALLERGIES AND ADVERSE REACTIONS ALLERGIES AND ADVERSE REACTIONS Code System Allergy Substance Adverse Reaction Date Reaction (Severity) Comment Status Reported By Updated By WOO (Free Text Allergy) Rash active [id number] on February 25, 2018 1:28:04 PM [facility] FAMILY HISTORY RELATION: Father Status: Cause of : Unknown Age at : 88 SNOMED-CT Diagnosis Age At Onset [id number] Malignant tumor of prostate RELATION: Mother Status: Cause of : Unknown Age at : 82 SNOMED-CT Diagnosis Age At Onset [id number] Diabetes mellitus [id number] Heart disease MEDICATIONS HOME MEDICATIONS Status RXNORM NDC Medication Dose Route Frequency Dates Comments Reported By Updated By Drug Treatment Unknown DISCHARGE MEDICATIONS Status RXNORM NDC Medication Dose Route Frequency Dates Dis pense Data Comments Physician Updated By No Discharge Medication Info rmation Available INPATIENT MEDICATIONS Status RXNORM NDC Medication Dose Route Frequency Rat e Quantity Dates Indication Dispense Data Comments Physician Updated By No Inpatient Medication Info rmation Available SOCIAL HISTORY SOCIAL HISTORY - Smoking Status SNOMED-CT Social History Element Description Effective Dates Offered Cessation Comment Updated By [id number] Historical Tobacco smoking status Never Smoked [id number] on July 27, 2020 3:26:39 PM [facility] [id number] Historical Tobacco smoking status Former Smoker [id number] on May 08, 2020 5:32:01 PM [facility] SOCIAL HISTORY - Gender Sex: Female SOCIAL HISTORY - Status : status i nformation is not available Intention in Next Year: intention information is not available SOCIAL HISTORY - Assessments Code System Description Status Date Value of Assessment Updated By Comment Assessment Information is no t available SOCIAL HISTORY - [place] Affiliation [place] information is not av ailable SOCIAL HISTORY - Legal Sex Legal Sex information is not available SOCIAL HISTORY - Sexual Behavior Sexual Orientation Gender Identity SNOMED-CT Description SNO MED -CT Description Activity Level No of Partners Partner Type UpdatedBy Information is not available SOCIAL HISTORY - Occupation Occupation information is no t available HEALTH CONCERNS Problems Concern Status Health Concern problem infor mation not available. Smoking Status Status Years Used Consumed packs p er day Health Concern smoking histo ry information not available. Family History Concern Status Health Concern family histor y information not available. ENCOUNTERS ENCOUNTER INFORMATION Reason for Visit OV Admission September 07, 2025 1:48:[address] [address] Discharge September 07, 2025 1:48:00 PM [facility] DISCHARGED TO HOME OR SELF CARE ENCOUNTER DIAGNOSES Notes information is not daisy ilable. Code System Diagnosis Onset Date Diagnosis information is not available. ABSTRACT DIAGNOSES Code System Diagnosis Updated By Abatement Date Abstract Diagnosis informati on is not available. CARE TEAM Care Quality Internship Role MOLLY KING Primary Attending MOLLY KING Referring ROSALINO MARIE Primary Care MOLLY KING Admitting CARE TEAM CARE eye specialist Role on Team Location Telecom Status Start Date End Tommie e Updated By CYNTHIA Meneses PCP normal Novem 2024 8:25:13 PM [facility] September 07, 2025 1:48:00 PM [facility] [id number] on September 06, 2025 8:25:13 PM [facility] FERNANDO SHAIKH Referring normal September 06, 2025 8:25:13 PM [facility] September 07, 2025 1:48:00 PM [facility] [id number] on September 06, 2025 8:25:13 PM [facility] FERNANDO SHAIKH Attending normal September 06, 2025 8:25:13 PM [facility] September 07, 2025 1:48:00 PM [facility] [id number] on September 06, 2025 8:25:13 PM [facility] FERNANDO SHAIKH Admitting normal September 06, 2025 8:25:13 PM [facility] September 07, 2025 1:48:00 PM [facility] [id number] on September 06, 2025 8:25:13 PM [facility]
--- OUTSIDE RECORDS SUMMARY | 2025-09-08 23:50 | XMS_ITS | Continuity of Care Document ---
Author Organization [facility] Phone Care Team Providers Care Plater Apprentice Name Role Phone MOLLY KING Primary Attending MOLLY KING Admitting ROSALINO MARIE Primary Care ALLERGIES AND ADVERSE REACTIONS ALLERGIES AND ADVERSE REACTIONS Code System Allergy Substance Adverse Reaction Date Reaction (Severity) Comment Status Reported By Updated By WOO (Free Text Allergy) Rash active [id number] on February 25, 2018 1:28:[address] [facility] FAMILY HISTORY RELATION: Father Status: Cause of : Unknown Age at : 88 SNOMED-CT Diagnosis Age At Onset [id number] Malignant tumor of prostate RELATION: Mother Status: Cause of : Unknown Age at : 82 SNOMED-CT Diagnosis Age At Onset [id number] Diabetes mellitus [id number] Heart disease RESULTS Patient: DEBORAH Apple Date of : 1955 LABORATORY RESULTS Information is not available LABORATORY NARRATIVE RESULTS Information is not available RADIOLOGY RESULTS ORDER 100: KNEE 1 TO 2V LT ( LOINC: 75722-6) ORDER DATE: September 07, 2025 3:22:[address] [facility] PERFORMING LAB: [address] [id number] Final Result Date: September 07, 2025 4:46:[address] [address] Name: MASHA CABRERA Exam Date: 09/07/2025 : 1955 Age 69 years Gender: F Physician: MOLLY KING Facility: [facility] Facility HSV: Outpatient Exam: KNEE 1 TO 2V LT PROCEDURE DESCRIPTION: KNEE 1 TO 2V LT CLINICAL INDICATION: bilateral primary osteoarthitis of knee. TECHNIQUE: 2 views / images submitted. COMPARISON: No prior studies were compared. FINDINGS: There is no evidence of acute fracture or dislocation. There is medial and lateral joint space narrowing. There are degenerative changes involving all parts of the knee. IMPRESSION: Moderate degenerative changes of the knee. Electronically signed by: Lázaro Caicedo MD 09/07/2025 11:46 AM [facility] Dictated By: LÁZARO CAICEDO Transcribed By: Transcribed On: 09/07/2025 11:46 AM Electronically signed by: LÁZARO CAICEDO 09/07/2025 Thank you for referring MASHA CABRERA to [facility]. Legally authenticated by MARIFER Duvall 2025-09-07 11:46:47 ORDER 200: KNEE 1 TO 2V RT ( LOINC: 01532-3) ORDER DATE: September 07, 2025 3:22:[address] [facility] PERFORMING LAB: [address] [id number] Final Result Date: September 07, 2025 4:47:[address] [address] Name: MASHA CABRERA Exam Date: 09/07/2025 : 1955 Age 69 years Gender: F Physician: MOLLY KING Facility: [facility] Facility HSV: Outpatient Exam: KNEE 1 TO 2V RT PROCEDURE DESCRIPTION: KNEE 1 TO 2V RT CLINICAL INDICATION: bilateral primary osteoarthitis of knee. TECHNIQUE: 2 views / images submitted. COMPARISON: No prior studies were compared. FINDINGS: There is no evidence of acute fracture or dislocation. There is medial and lateral joint space narrowing. There are degenerative changes involving all 3 compartments of the knee. IMPRESSION: Moderate to severe degenerative changes involving the knee. Electronically signed by: Lázaro Caicedo MD 09/07/2025 11:47 AM [facility] Dictated By: LÁZARO CAICEDO Transcribed By: Transcribed On: 09/07/2025 11:47 AM Electronically signed by: LÁZARO CAICEDO 09/07/2025 Thank you for referring MASHA CABRERA to [facility]. Legally authenticated by MARIFER Duvall 2025-09-07 11:47:11 PATHOLOGY NARRATIVE RESULTS Information is not available MICROBIOLOGY RESULTS No Micro Labs/Results Exist for Patient BLOOD ADMIN RESULTS Information is not available MEDICATIONS HOME MEDICATIONS Status RXNORM NDC Medication [...] Effective Dates Offered Cessation Comment Updated By [id number] Historical Tobacco smoking status Never Smoked [id number] on July 27, 2020 3:26:[address] [facility] [id number] Historical Tobacco smoking status Former Smoker [id number] on May 08, 2020 5:32:[address] [facility] SOCIAL HISTORY - Gender Sex: Female SOCIAL HISTORY - Status : status i nformation is not available Intention in Next Year: intention information is not available SOCIAL HISTORY - Assessments Code System Description Status Date Value of Assessment Updated By Comment Assessment Information is no t available SOCIAL HISTORY - [place] Affiliation [place] information is not av ailable SOCIAL HISTORY [...] available. ENCOUNTERS ENCOUNTER INFORMATION Reason for Visit XRAY Admission September 07, 2025 3:13:[address] [address] Discharge September 07, 2025 3:13:[address] [facility] DISCHARGED TO HOME OR SELF CARE ENCOUNTER DIAGNOSES Notes information is not daisy ilable. Code System Diagnosis Onset Date Diagnosis information is not available. ABSTRACT DIAGNOSES Code System Diagnosis Updated By Abatement Date M17.0 ICD10 BILATERAL PRIMAR Y OSTEOARTHRITIS OF KNEE [id number] on September 09, 2025 4:45:[address] [facility] Z88.8 ICD10 ALLERGY STATUS T O OTHER DRUGS, MEDICAMENTS AND BIOLOGICAL SUBSTANCES [id number] on September 09, 2025 4:45:[address] [facility] M17.0 ICD10 BILATERAL PRIMAR Y OSTEOARTHRITIS OF KNEE [id number] on September 09, 2025 4:45:[address] [facility] Z88.8 ICD10 ALLERGY STATUS T O OTHER DRUGS, MEDICAMENTS AND BIOLOGICAL SUBSTANCES [id number] on September 09, 2025 4:45:[address] [facility] CARE TEAM Care Plater Apprentice Role MOLLY KING Primary Attending MOLLY KING Admitting ROSALINO MARIE Primary Care CARE TEAM CARE lead data architect Role on Team Location Telecom Status Start Date End Tommie e Updated By CYNTHIA Meneses PCP normal Novemb er 2024 5:00:[address] [facility] September 07, 2025 3:13:[address] [facility] [id number] on September 07, 2025 3:14:[address] [facility] FERNANDO SHAIKH Attending normal September 07, 2025 5:00:[address] [facility] September 07, 2025 3:13:[address] [facility] [id number] on September 07, 2025 3:14:[address] [facility] FERNANDO SHAIKH Admitting normal September 07, 2025 5:00:[address] [facility] September 07, 2025 3:13:[address] [facility] [id number] on September 07, 2025 3:14:[address] [facility]
--- OUTSIDE RECORDS SUMMARY | 2025-09-09 12:41 | XMS_ITS | Clinical Summary ---
Author Organization [facility] Address [address] [place] [address] Care Team Providers Care Applications Support Engineer Name Role Phone Marcos Nava MD Primary Care Provider [phone] Allergies Active Allergy Reactions Criticality Noted Date [...] L4-5 decompression, fusion. 1 11/25/2019 Obesity 09/25/2020 Social History Tobacco Use Types Packs/Day Years Used Date Smoking Tobacco: Former Cigarettes 2 10 1 1991 Smokeless Tobacco: Never Tobacco Cessation:Counseling Given: [...] ANNUAL PHYSICAL 09/20/2020 HEPATITIS C SCREENING 09/20/2020 INFLUENZA VACCINE 05/27/2025 09/01/2024, , 07/05/2020, Additional history exists COVID-19 Vaccine (7 - 2023-2 5 season) 2025 09/01/2024, 08/04/2023, 08/15/2022, Additional history exists PT PLAN OF CARE 07/06/2025 04/07/2025 COLONOSCOPY 02/09/2030 02/10/2020 COLORECTAL CANCER SCREENING 02/09/2030 TDAP/TD VACCINES (5 - Td or Tdap) 07/05/2030 07/05/2020, 04/13/2020, 12/30/2017, Additional history exists Pneumococcal Vaccine 50+ Completed 020, 10/18/2019, 09/17/2019, Additional history exists Medical Devices Implanted Type Area Channel Business Manager Device Identifier Shelf Expiration Date Model / Serial / Lot Hemost Abs Surgifoam Sz100 8x12 10mm - [id number] Implanted:Qt y: 1 on 09/25/2020 by Mango Munoz MD at [facility] Implant N/A: Spine Lumbar ETH[employer]ON DIV OF J AND J 1974 / / NA Allogr Bone Vivigen Celluar Matrx Formable 5c - [id number] - [id number] Implanted:Qt y: 1 on 09/25/2020 by Mango Munoz MD at [facility] Implant N/A: Spine Lumbar [facility] [id number] 08/18/2021 [id number] / NA Scrw Expedium Pa Ti 6x40mm - [id number] Implanted:Qt y: 2 on 09/25/2020 by Mango Munoz MD at [facility] Implant N/A: Spine Lumbar DEPUY SPINE [id number] / / NA Scrw Expedium Pa Ti 6x45mm - [id number] Implanted:Qt y: 2 on 09/25/2020 by Mango Munoz MD at [facility] Implant N/A: Spine Lumbar DEPUY SPINE [id number] / / NA Haim Expedium Prebnt Ti 5.5x40mm - [id number] Implanted:Qt y: 2 on 09/25/2020 by Mango Munoz MD at [facility] Implant N/A: Spine Lumbar DEPUY SPINE [id number] / / NA Scrw Viper Innr St - [id number] Implanted:Qt y: 4 on 09/25/2020 by Mango Munoz MD at [facility] Implant N/A: Spine Lumbar DEPUY SPINE [id number] / / NA Spacr Tpal Peek [id number] - [id number] Implanted:Qt y: 1 on 09/25/2020 by Mango Munoz MD at [facility] Implant N/A: Spine Lumbar DEPUY SYNTHES [id number] / / NA [place] [address] [place] [address] MEDICARE ADVANTAGE [facility] MEDICARE ADVANTAGE PPO Advance Directives * CPR (Attempt to Resuscitate) (Latest Code Status on File) Date Activated Date Inactivated Comments 09/25/2020 1:28 PM 2020 4:27 PM Question Answer Comments Code Status (Patient has no pulse and is not breathing): CPR (Attempt to Resuscitate) Medical Interventions (Patie nt has pulse or is breathing): Full Care Teams Applications Support Engineer Relationship Specialty Start Date End Date Marcos Nava MD [address] [facility] [address] [place] [address] PCP - General Family Medicine 09/20/20
== END ==
LOC: SL 12:40
PROVIDERS: PCP Family Medicine; Visit Provider Internal Medicine Pulmonary Disease
DX: R06.02 Shortness of breath (principal); Z86.69 Personal history of other diseases of the nervous system and sense organs
CPT/HCPCS: 94762

== ENCOUNTER 2025-10-18 09:58 | Outpatient (CLI) | payer MEDICARE, SELFPAY ==
--- OUTSIDE RECORDS SUMMARY | 2025-09-09 16:53 | XMS_ITS | Continuity of Care Document ---
Author Organization [facility] Phone Care Team Providers Care Digital Marketing Coordinator Name Role Phone MOLLY KING Primary Attending [phone] MOLLY KING Unavailable ROSALINO MARIE Primary Care MOLLY KING Surgeon MOLLY KING Admitting ALLERGIES AND ADVERSE REACTIONS ALLERGIES AND ADVERSE REACTIONS Code System Allergy Substance Adverse Reaction Date Reaction (Severity) Comment Status Reported By Updated By WOO (Free Text Allergy) Rash active [id number] on February 25, 2018 1:28:04 PM [facility] FAMILY HISTORY RELATION: Father Status: Cause of : Unknown Age at : 88 SNOMED-CT Diagnosis Age At Onset [id number] Malignant tumor of prostate RELATION: Mother Status: Cause of : Unknown Age at : 82 SNOMED-CT Diagnosis Age At Onset [id number] Diabetes mellitus [id number] Heart disease MEDICATIONS HOME MEDICATIONS Status RXNORM [...] Effective Dates Offered Cessation Comment Updated By [id number] Historical Tobacco smoking status Never Smoked [id number] on July 27, 2020 3:26:39 PM [facility] [id number] Historical Tobacco smoking status Former Smoker [id number] on May 08, 2020 5:32:01 PM [facility] SOCIAL HISTORY - Gender Sex: Female SOCIAL HISTORY - Status : status i nformation is not available Intention in Next Year: intention information is not available SOCIAL HISTORY - Assessments Code System Description Status Date Value of Assessment Updated By Comment Assessment Information is no t available SOCIAL HISTORY - [place] Affiliation [place] information is not av ailable SOCIAL HISTORY [...] OV Admission September 07, 2025 1:48:[address] [address] Discharge September 07, 2025 1:48:00 PM [facility] DISCHARGED TO HOME OR SELF CARE ENCOUNTER DIAGNOSES Notes information is not daisy ilable. Code System Diagnosis Onset Date Diagnosis information is not available. ABSTRACT DIAGNOSES Code System Diagnosis Updated By Abatement Date M17.0 ICD10 BILATERAL PRIMAR Y OSTEOARTHRITIS OF KNEE [id number] on September 09, 2025 9:49:04 PM [facility] M17.0 ICD10 BILATERAL PRIMAR Y OSTEOARTHRITIS OF KNEE [id number] on September 09, 2025 9:49:04 PM [facility] M25.561 ICD10 PAIN IN RIGHT KNEE [id number] o n September 09, 2025 9:49:04 PM [facility] M19.90 ICD10 UNSPECIFIED OSTE OARTHRITIS, UNSPECIFIED SITE LAK6363 on September 09, 2025 9:49:04 PM [facility] Z98.890 ICD10 OTHER SPECIFIED POSTPROCEDURAL STATES [id number] on September 09, 2025 9:49:04 PM [facility] E03.9 ICD10 HYPOTHYROIDISM, UNSPECIFIED [id number] on September 09, 2025 9:49:04 PM [facility] F90.1 ICD10 ATTENTION-DEFICI T HYPERACTIVITY DISORDER, PREDOMINANTLY HYPERACTIVE TYPE [id number] on September 09, 2025 9:49:04 PM [facility] K21.9 ICD10 GASTRO-ESOPHAGEA L REFLUX DISEASE WITHOUT ESOPHAGITIS KFY5214 on September 09, 2025 9:49:04 PM UTC E78.5 ICD10 HYPERLIPIDEMIA, UNSPECIFIED FHT9973 on September 09, 2025 9:49:04 PM UTC J44.9 ICD10 CHRONIC OBSTRUCT CHRIS PULMONARY DISEASE, UNSPECIFIED MGK8359 on September 09, 2025 9:49:04 PM UTC I10 ICD10 ESSENTIAL (PRIMA RY) HYPERTENSION [id number] on September 09, 2025 9:49:04 PM UTC Z79.899 ICD10 OTHER SHELTER (CURRENT) DRUG THERAPY [id number] on September 09, 2025 9:49:04 PM [facility] CARE TEAM Care Digital Marketing Coordinator Role MOLLY KING Primary Attending MOLLY KING Referring ROSALINO MARIE Primary Care MOLLY KING Surgeon MOLLY KING Admitting CARE TEAM CARE golf course laborer Role on Team Location Telecom Status Start Date End Tommie e Updated By FERNANDO SHAIKH Surgeon normal September 07, 2025 1:48:00 PM [place] September 07, 2025 1:48:00 PM UT [id number] on September 09, 2025 9:51:44 PM [facility] CYNTHIA Meneses PCP normal [facility] 2024 8:25:13 PM UT September 07, 2025 1:48:00 PM UT [id number] on September 09, 2025 9:51:44 PM UT FERNANDO SHAIKH Referring normal September 06, 2025 8:25:13 PM UT September 07, 2025 1:48:00 PM UT [id number] on September 09, 2025 9:51:44 PM UT FERNANDO SHAIKH Attending normal September 06, 2025 8:25:13 PM UT September 07, 2025 1:48:00 PM UT [id number] on September 09, 2025 9:51:44 PM UT FERNANDO SHAIKH Admitting normal September 06, 2025 8:25:13 PM UT September 07, 2025 1:48:00 PM UT [id number] on September 09, 2025 9:51:44 PM [facility]
--- OUTSIDE RECORDS SUMMARY | 2025-09-29 09:27 | XMS_ITS | Continuity of Care Document ---
Author Organization [facility] Phone Care Team Providers Care Manager Merchandise Name Role Phone MOLLY MOCK Admitting ROSALINO MARIE Primary Care MOLLY MOCK Surgeon MOLLY MOCK Unavailable MOLLY MOCK Primary Attending ALLERGIES AND ADVERSE REACTIONS ALLERGIES AND ADVERSE REACTIONS Code System Allergy Substance Adverse Reaction Date Reaction (Severity) Comment Status Reported By Updated By WOO (Free Text Allergy) Rash active [id number] on February 25, 2018 1:28:04 PM [place] 167 RXNorm acetaZOLAMIDE Rash active BKE 4339 on September 12, 2025 6:25:59 PM [place] [id number] [place] CT Penicillins Adverse reaction to substance Unknown active RQO2555 on September 12, 2025 6:26:12 PM [facility] [id number] SNOMED CT Penicillins Adverse reaction to substance Unknown active [id number] on September 12, 2025 6:26:12 PM [facility] ASSESSMENTS Idiopathic osteoarthritis ; FAMILY HISTORY RELATION: Father Status: Cause of : Unknown Age at : 88 SNOMED-CT Diagnosis Age At Onset [id number] Malignant tumor of prostate RELATION: Mother Status: Cause of : Unknown Age at : 82 SNOMED-CT Diagnosis Age At Onset [id number] Diabetes mellitus 86969019 Heart disease PROBLEMS PATIENT PROBLEMS Code Description/Comments Category Status Upda raven By [id number] Idiopathic osteoarthritis active [id number] on September 12, 2025 6:21:01 PM [facility] MEDICATIONS HOME MEDICATIONS Status RXNORM NDC Medication Dose Route Frequency Dates Comments Reported By Updated By Landon [id number] 71775 80479 8 Albuterol Sulfate HFA Inhalation Aerosol Solution 108 (90 Base) MCG/ACT 1.0 PUF INHALA TION Q4H Last Dose: [id number] on September 12, 2025 6:26:54 PM [place] Active 501077 33643 82815 6 Atomoxetine HCl Oral Capsule 40 MG 1.0 CAP ORAL DAILY Last Dose: [id number] on September 12, 2025 6:27:12 PM [place] Active 029011 24028 86460 6 Atomoxetine HCl Oral Capsule 80 MG 1.0 CAP ORAL DAILY Last Dose: clr2920 on September 12, 2025 6:27:22 PM UT Active 043364 17893 69850 0 Atorvastatin Calcium Oral Tablet 20 MG 1.0 TAB ORAL DAILY Last Dose: lrh0618 on September 12, 2025 6:27:35 PM UT Active 297234 27594 27866 3 Budesonide Inhalation Suspension 0.25 MG/2ML 1.0 VL INHALA TION BID Last Dose: nja8153 on September 12, 2025 6:27:52 PM UT Active 79590 59929 1 Vitamin D3 Oral Capsule 1.25 MG (99348 UT) 1.0 CAP ORAL TUTH Last Dose: xvl1212 on September 12, 2025 6:28:31 PM UT Active 726720 71609 35825 1 clonazePAM Oral Tablet 0.5 MG 1.0 TAB ORAL BID Last Dose: ztb7710 on September 12, 2025 6:28:51 PM UT Active 142691 69347 84156 0 Fexofenadine HCl Oral Tablet 180 MG 1.0 TAB ORAL DAILY Last Dose: qig8249 on September 12, 2025 6:29:05 PM [place] Active 8542837 35203 44763 9 Fluticasone Propionate Nasal Suspension 50 MCG/ACT 2.0 SPR NASAL DAILY Last Dose: idt9417 on September 12, 2025 6:29:23 PM UT Active 3786587 27356 87073 6 Formoterol Fumarate Inhalation Nebulization Solution 20 MCG/2ML 1.0 VL INHALA TION BID Last Dose: ngz7558 on September 12, 2025 6:29:40 PM UT Active 785235 54647 28432 5 Furosemide Oral Tablet 20 MG 1.0 TAB ORAL DAILY Last Dose: ilq7590 on September 12, 2025 6:29:51 PM [facility] Active 232367 63553 10623 5 Furosemide Oral Tablet 40 MG 1.0 TAB ORAL DAILY Last Dose: ifx8671 on September 12, 2025 6:30:01 PM [facility] Active 687521 30406 30023 0 HYDROcodone- Acetaminophe n Oral Tablet 7.5-325 MG 1.0 TAB ORAL Q6H Last Dose: upp3613 on September 12, 2025 6:30:23 PM [facility] Active 633044 07744 55205 0 Levothyroxin e Sodium Oral Tablet 50 MCG 1.0 TAB ORAL DAILY Last Dose: jio5165 on September 12, 2025 6:30:39 PM [facility] Active 622923 32432 24144 0 Montelukast Sodium Oral Tablet 10 MG 1.0 TAB ORAL DAILY Last Dose: ltj9770 on September 12, 2025 6:30:51 PM [facility] Active 153384 40831 75026 0 Omeprazole Oral Capsule Delayed Release 40 MG 1.0 CAP ORAL DAILY Last Dose: vnd1108 on September 12, 2025 6:31:08 PM [facility] Active 792235 29461 99022 0 Potassium Chloride ER Oral Tablet Extended Release 10 MEQ 1.0 TAB ORAL BID Last Dose: gos5233 on September 12, 2025 6:31:31 PM [facility] Active 868419 67926 37010 1 Spironolacto ne Oral Tablet 100 MG 1.0 TAB ORAL DAILY Last Dose: wnf1738 on September 12, 2025 6:31:45 PM [facility] Active 303132 01795 37856 1 Spironolacto ne Oral Tablet 25 MG 1.0 TAB ORAL DAILY Last Dose: feg2818 on September 12, 2025 6:31:56 PM [facility] DISCHARGE MEDICATIONS Status RXNORM [facility] Medication Dose Route Frequency Dates Dis pense Data Comments Physician Updated By No Discharge Medication Info rmation Available [facility]PAT[facility] Medication Dose Route Frequency Rat e Quantity Dates Indication Dispense Data Comments Physician Updated By [facility] [id number] [phone] methylpredn isoLONE ACETATE 40 MG/ML SUSP 40.0 MG INTRAM USCULA R ONE TIME ONLY (SCHEDULED DOSE) Start: Novemb er 2024 3:15:0 0 PM [facility] End: Novemb er 2024 3:15:0 0 PM UTC Fill Status = Completed , Repeat Number = 0, Quantity = 2.000 FERNANDO MOLLY K INTERFAC ED on September 15, 2025 3:13:00 PM UTC Discont inued 0027 0141 215 iopamidol 61% (ISOVUE-M 300) 15 ML SOLN 15.0 ML INTRAV ENOUS ONE TIME ONLY (SCHEDULED DOSE) Start: [facility] 2024 3:15:0 0 PM UTC End: [facility] 2024 3:15:0 0 PM UTC Fill Status = Completed , Repeat Number = 0, Quantity = 1.000 BRUNOISWAAJIT MOLLY K INTERFAC ED on September 15, 2025 3:14:00 PM UTC Discont inued [id number] 0040 9115 901 bupivacaine PF 0.25% 10 ML SOLN 10.0 ML EPIDUR AL ONE TIME ONLY (SCHEDULED DOSE) Start: [facility] 2024 3:15:0 0 PM UTC End: [facility] 2024 3:15:0 0 PM UTC Fill Status = Completed , Repeat Number = 0, Quantity = 1.000 FERNANDO MOLLY K INTERFAC ED on September 15, 2025 3:14:00 PM [facility] SOCIAL HISTORY SOCIAL HISTORY - Smoking Status SNOMED-CT Social History Element Description Effective Dates Offered Cessation Comment Updated By [id number] Historical Tobacco smoking status Never Smoked [id number] on July 27, 2020 3:26:39 PM UT [id number] Historical Tobacco smoking status Former Smoker AOI1793 on May 08, 2020 5:32:01 PM [facility] SOCIAL HISTORY - Gender Sex: Female SOCIAL HISTORY - Status : status i nformation is not available Intention in Next Year: intention information is not available SOCIAL HISTORY - Assessments Code System Description Status Date Value of Assessment Updated By Comment Assessment Information is no t available SOCIAL HISTORY - [place] Affiliation [place] information is not av ailable SOCIAL HISTORY - Legal Sex Legal Sex : Female (finding) SOCIAL HISTORY - Sexual Behavior Sexual Orientation Gender Identity SNOMED-CT Description SNO MED -CT Description Activity Level No of Partners Partner Type UpdatedBy Information is not available SOCIAL HISTORY - Occupation Occupation information is no t available VITAL SIGNS PATIENT VITAL SIGNS This section displays the mo st recent value for each vital sign as of September 29, 2025 2:27:22 PM UTC Loinc Code Vital Sign Activity Date Result Updated By 8302-2 Body height September 12 6:24:36 PM UTC 154.94 cm (61.0 in) gto8279 on September 12, 2025 6:24:36 PM UTC 8310-5 Body temperature September 15 4:03:00 PM UTC 97.6 [degF] IFK2055 on September 15, 2025 4:04:17 PM UTC 8462-4 Diastolic blood pressure September 15, 2025 4:03:00 PM UTC 69.0 mm[Hg] NZY7854 on September 15, 2025 4:04:17 PM UTC 8867-4 Heart rate September 15 4:03:00 PM UTC 74 /min NZK4725 on September 15, 2025 4:04:17 PM UTC 68234-6 Oxygen saturation in Arterial blood by Pulse oximetry September 15, 2025 4:03:00 PM UTC 98.0 % TZF8335 on September 15, 2025 4:04:17 PM UTC 9279-1 Respiratory rate September 15 4:03:00 PM UTC 18 /min YVD3451 on September 15, 2025 4:04:17 PM UTC 8480-6 Systolic blood pressure September 15, 2025 4:03:00 PM UTC 128.0 mm[Hg] OVQ9377 on September 15, 2025 4:04:17 PM UTC PEDIATRIC GROWTH CHART - VITAL SIGNS This section displays Head C ircumference Percentile, Weight for Length Percentile and BMI Percentile Loinc Code Pediatric Measure Age (Months) Result Updat ed By No Pediatric Growth Chart Pe rcentile Information Available. PROCEDURES PATIENT PROCEDURES Procedure information is not available. PROCEDURE NOTE Note Title [facility] - Post Procedur e Note Date Of Service September 15, 2025 6: 31:33 PM UTC Created By [id number] on September 15, 2025 6:31:33 PM UTC Signed By [id number] on September 15, 2025 6:39:50 PM UTC Procedure / Surgery None Bilateral knee steroid injection Pre-Procedure Diagnosis Idiopathic osteoarthritis Post- Procedure Diagnosis Idiopathic osteoarthritis Procedure Description / Findings Bilateral Knee Injections The patient understands the risks and benefits of the procedure and wishes to proceed. The patient was seen in the preoperative area. Patient's consent was obtained and updated. Vitals were taken. Patient was then brought to the procedure suite and placed in a supine position for the injections of the left and right knee. The appropriate anatomic areas were widely prepped with Chloraprep and draped in a sterile fashion. Noninvasive monitoring per routine anesthesia protocol was placed. Under fluoroscopic guidance using an AP view, a 22 gauge straight tip spinal needle was passed through skin of the right knee and anesthetized with anesthetic spray. The needle tip was guided to the right knee joint using fluoroscopy. 2mL of [id number] preservative free contrast was injected into the right knee joint to confirm location. A clear outline was obtained and 5mL of steroid solution containing 4mL 0.25% bupivacaine, and 1mL 40mg Depo-medrol was injected. Then the 22 gauge straight tip spinal needle was passed through the skin of the left knee and anesthetized with 1% lidocaine without epinephrine. The needle tip was guided to the left knee joint using fluoroscopy. 2mL of [id number] preservative free contrast was injected into the left knee joint to confirm location. A clear outline was obtained and 5mL of steroid solution containing 4mL of 0.25% bupivacaine, and 1mL 40mg Depo-medrol was injected. The patient tolerated with no majo-procedural complications. A sterile dressing was placed over the puncture sites. Electronically signed by FERNANDO SHAIKH on 1339 ENCOUNTERS ENCOUNTER INFORMATION Reason for Visit B/L KNEE INJ Admission September 15, 2025 3:04:[address] [address] Discharge September 15, 2025 11:04:00 PM [facility] DISCHARGED TO HOME OR SELF CARE ENCOUNTER DIAGNOSES Notes information is not daisy ilable. Code System Diagnosis Onset Date Diagnosis information is not available. ABSTRACT DIAGNOSES Code System Diagnosis Updated By Abatement Date M17.0 ICD10 BILATERAL PRIMAR Y OSTEOARTHRITIS OF KNEE [id number] on September 29, 2025 2:26:56 PM [facility] M17.0 ICD10 BILATERAL PRIMAR Y OSTEOARTHRITIS OF KNEE CWQ1148 on September 29, 2025 2:26:56 PM [facility] E78.5 ICD10 HYPERLIPIDEMIA, UNSPECIFIED [id number] on September 29, 2025 2:26:56 PM UT G47.30 ICD10 SLEEP APNEA, UNSPECIFIED OIK 7837 on September 29, 2025 2:26:56 PM UTC K21.9 ICD10 GASTRO-ESOPHAGEA L REFLUX DISEASE WITHOUT ESOPHAGITIS LCF4983 on September 29, 2025 2:26:56 PM UT M19.90 ICD10 UNSPECIFIED OSTE OARTHRITIS, UNSPECIFIED SITE RNK4156 on September 29, 2025 2:26:56 PM UT Z87.891 ICD10 PERSONAL HISTORY OF NICOTINE DEPENDENCE LND6140 on September 29, 2025 2:26:56 PM UT Z98.890 ICD10 OTHER SPECIFIED POSTPROCEDURAL STATES YML1933 on September 29, 2025 2:26:56 PM UT Z88.8 ICD10 ALLERGY STATUS T O OTHER DRUGS, MEDICAMENTS AND BIOLOGICAL SUBSTANCES RMW7401 on September 29, 2025 2:26:56 PM [facility] CARE TEAM Care Manager Merchandise Role MOLLY MOCK Admitting ROSALINO MARIE Primary Care MOLLY MOCK Surgeon MOLLY MOCK Referring MOLLY MOCK Primary Attending HOSPITAL DISCHARGE INSTRUCTION DISCHARGE INSTRUCTION Encounter [id number] Admit Date September 15, 2025 3: 04:00 PM UT Discharge Date September 15, 2025 11 :04:00 PM [facility] PATIENT EDUCATION SUMMARY Patient/Visit Information: Patient Name: MASHA CABRERA Diag: Attending Caregiver: FERNANDO Yousif Discharge Instruction Sheets Provided: Dr. Mock General Discharge Discharge Information BEFAST-Stroke Warning Signs Fall Prevention in Hospitals and in the Home [facility] - Medication Management KYNECT- HELP Medication Side Effects Suicide - Managing your Feelings Patient Instructions: Followup Appointments/Instructions: CARE TEAM CARE scourer Role on Team Location Telecom Status Start Date End Tommie e Updated By FERNANDO SHAIKH [facility] [place], [phone] normal September 15, 2025 3:04:00 PM UT September 15, 2025 11:04:00 PM [facility] [id number] on September 29, 2025 2:27:03 PM [facility] CYNTHIA Meneses PCP [address] [place], [address] normal September 07, 2025 10:02:11 PM UT September 15, 2025 11:04:00 PM UTC [id number] on September 29, 2025 2:27:03 PM UTC MUNISWAMY MOLLY K PHY Referring [address] [place] [address], [id number] normal September 07, 2025 10:02:11 PM UTC September 15, 2025 11:04:00 PM UTC [id number] on September 29, 2025 2:27:03 PM UTC MUNISHERNANMY MOLLY K PHY Attending [address] [place] [address], [address] normal September 07, 2025 10:02:11 PM UTC September 15, 2025 11:04:00 PM UTC [id number] on September 29, 2025 2:27:03 PM UTC MUNISHERNANMY MOLLY K PHY Admitting [address] [place] [address], [id number] normal September 07, 2025 10:02:11 PM UTC September 15, 2025 11:04:00 PM UTC [id number] on September 29, 2025 2:27:03 PM UTC INSURANCE PROVIDERS INSURANCE PROVIDER Coverage Status - Effective Date Coverage Type Payor Plan Order Relationship To Subscriber Insurance Plan No Insurance Plan 2024-10-27 M PRIMARY 18 [id number] [facility] HUMAN A
--- OUTSIDE RECORDS SUMMARY | 2025-10-07 14:33 | XMS_ITS | Continuity of Care Document ---
Author Organization [facility] Phone Care Team Providers Care Supervisor Central Supply Name Role Phone ROSALINO MARIE Primary Care MOLLY KING Unavailable MOLLY KING Admitting MOLLY KING Primary Attending [phone] ALLERGIES AND ADVERSE REACTIONS ALLERGIES AND ADVERSE REACTIONS Code System Allergy Substance Adverse Reaction Date Reaction (Severity) Comment Status Reported By Updated By WOO (Free Text Allergy) Rash active [id number] on February 25, 2018 1:28:04 PM [facility] 167 RXNorm acetaZOLAMIDE Rash active BKE 4339 on September 12, 2025 6:25:59 PM [facility] [id number] SNOMED CT Penicillins Adverse reaction to substance Unknown active [id number] on September 12, 2025 6:26:12 PM [facility] [id number] SNOMED CT Penicillins Adverse reaction to substance Unknown active YZU3736 on September 12, 2025 6:26:12 PM [facility] FAMILY HISTORY RELATION: Father Status: Cause of : Unknown Age at : 88 SNOMED-CT Diagnosis Age At Onset [id number] Malignant tumor of prostate RELATION: Mother Status: Cause of : Unknown Age at : 82 SNOMED-CT Diagnosis Age At Onset [id number] Diabetes mellitus 04938344 Heart disease MEDICATIONS HOME MEDICATIONS Status RXNORM [...] Effective Dates Offered Cessation Comment Updated By [id number] Historical Tobacco smoking status Never Smoked [id number] on July 27, 2020 3:26:39 PM [facility] 6741564 Historical Tobacco smoking status Former Smoker SFR5916 on May 08, 2020 5:32:01 PM [facility] SOCIAL HISTORY - Gender Sex: Female SOCIAL HISTORY - Status : status i nformation is not available Intention in Next Year: intention information is not available SOCIAL HISTORY - Assessments Code System Description Status Date Value of Assessment Updated By Comment Assessment Information is no t available SOCIAL HISTORY - [place] Affiliation [place] information is not av ailable SOCIAL HISTORY - Legal Sex Legal Sex : Female (finding) SOCIAL HISTORY - Sexual Behavior Sexual Orientation Gender Identity SNOMED-CT Description SNO MED -CT Description Activity Level No of Partners Partner Type UpdatedBy Information is not available SOCIAL HISTORY - Occupation Occupation information is no t available ENCOUNTERS ENCOUNTER INFORMATION Reason for Visit OV Admission September 29, 2025 5:58:[address] [address] Discharge September 29, 2025 5:58:00 PM [facility] DISCHARGED TO HOME OR SELF CARE ENCOUNTER DIAGNOSES Notes information is not daisy ilable. Code System Diagnosis Onset Date Diagnosis information is not available. ABSTRACT DIAGNOSES Code System Diagnosis Updated By Abatement Date .29 ICD10 OTHER CHRONIC PAIN [id number] o n October 07, 2025 7:29:42 PM [facility] G89.4 ICD10 CHRONIC PAIN SYNDROME CWS121 7 on October 07, 2025 7:29:42 PM [facility] M17.0 ICD10 BILATERAL PRIMAR Y OSTEOARTHRITIS OF KNEE [id number] on October 07, 2025 7:29:42 PM [facility] M19.90 ICD10 UNSPECIFIED OSTE OARTHRITIS, UNSPECIFIED SITE [id number] on October 07, 2025 7:29:42 PM [facility] F98.8 ICD10 OTHER SPECIFIED BEHAVIORAL AND EMOTIONAL DISORDERS WITH ONSET USUALLY OCCURRING IN CHILDHOOD AND ADOLESCENCE [id number] on October 07, 2025 7:29:42 PM [facility] G47.30 ICD10 SLEEP APNEA, UNSPECIFIED OIK 7837 on October 07, 2025 7:29:42 PM [facility] K21.9 ICD10 GASTRO-ESOPHAGEA L REFLUX DISEASE WITHOUT ESOPHAGITIS MFZ5807 on October 07, 2025 7:29:42 PM [place] Z87.891 ICD10 PERSONAL HISTORY OF NICOTINE DEPENDENCE VIJ2335 on October 07, 2025 7:29:42 PM UT Z98.890 ICD10 OTHER SPECIFIED POSTPROCEDURAL STATES [id number] on October 07, 2025 7:29:42 PM UT Z97.8 ICD10 PRESENCE OF OTHE R SPECIFIED DEVICES [id number] on October 07, 2025 7:29:42 PM UT Z88.0 ICD10 ALLERGY STATUS TO PENICILLIN GGV0242 on October 07, 2025 7:29:42 PM UT Z88.8 ICD10 ALLERGY STATUS T O OTHER DRUGS, MEDICAMENTS AND BIOLOGICAL SUBSTANCES [id number] on October 07, 2025 7:29:42 PM [facility] CARE TEAM Care Supervisor Central Supply Role ROSALINO MARIE Primary Care MOLLY KING Referring MOLLY KING Admitting MOLLY KING Primary Attending CARE TEAM CARE scaffolder Role on Team Location Telecom Status Start Date End Tommie e Updated By CYNTHIA Meneses [facility] [address], [place], [facility] normal September 29, 2025 5:00:00 AM [facility] September 29, 2025 5:58:00 PM [facility] [id number] on September 29, 2025 5:58:32 PM [facility] MUNISWAMY MOLLY K PHY Referring [address] [place] [address], [address] normal September 29, 2025 5:00:00 AM [facility] September 29, 2025 5:58:00 PM [facility] [id number] on September 29, 2025 5:58:32 PM [facility] MUNISWAMY MOLLY K PHY Attending [address] [place] [address], [address] normal September 29, 2025 5:00:00 AM [facility] September 29, 2025 5:58:00 PM [facility] [id number] on September 29, 2025 5:58:32 PM [facility] MUNISWAMY MOLLY K PHY Admitting [address] [place] [address], [address] normal September 29, 2025 5:00:00 AM [facility] September 29, 2025 5:58:00 PM [facility] [id number] on September 29, 2025 5:58:32 PM [facility] INSURANCE PROVIDERS INSURANCE PROVIDER Coverage Status - Effective Date Coverage Type Payor Plan Order Relationship To Subscriber Insurance Plan No Insurance Plan 2024-10-27 [facility] 18 [id number] [facility] A
--- OUTSIDE RECORDS SUMMARY | 2025-10-18 10:05 | XMS_ITS | Clinical Summary ---
Author Organization [facility] Address [address] [place] [address] Care Team Providers Care Health Companion Name Role Phone Marcos Nava MD Primary Care Provider [phone] Allergies Active Allergy Reactions Criticality Noted Date [...] Encounters Date Type Department Care Team Description 10/03/2025 Documentation [facility] OUTPATIENT PHYSICAL THERAPY [address] [place] [id number] Malena Berman, PT Discharge from Last 3 Months Social History Tobacco Use Types Packs/Day Years Used Date Smoking Tobacco: Former Cigarettes 2 1991 Smokeless Tobacco: Never Tobacco Cessation:Counseling Given: [...] , 07/05/2020, Additional history exists COVID-19 Vaccine (2023-2 5 season) 2025 09/01/2024, 08/04/2023, 08/15/2022, Additional history exists PT PLAN OF CARE 07/06/2025 04/07/2025 COLONOSCOPY 02/09/2030 02/10/2020 COLORECTAL CANCER SCREENING 02/09/2030 TDAP/TD VACCINES (4 - Td or Tdap) 07/05/2030 07/05/2020, 04/13/2020, 12/30/2017, Additional history exists Pneumococcal Vaccine 50+ Completed 020, 10/18/2019, 09/17/2019, Additional history exists Medical Devices Implanted Type Area Detective Bureau Chief Device Identifier Shelf Expiration Date Model / Serial / Lot Hemost Abs Surgifoam Sz100 8x12 10mm - [id number] Implanted:Qt y: 1 on 09/25/2020 by Mango Munoz MD at [facility] Implant N/A: Spine Lumbar [employer] J [employer] J 1974 / / NA Allogrft Bone Vivigen Celluar Matrx Formable [facility] - [id number] - [id number] Implanted:Qt y: 1 on 09/25/2020 by Mango Munoz MD at [facility] Implant N/A: Spine Lumbar [facility] [id number] 08/18/2021 [id number] / [id number] / NA Scrw Expedium Pa Ti 6x40mm - [id number] Implanted:Qt y: 2 on 09/25/2020 by Mango Munoz MD at [facility] Implant N/A: Spine Lumbar DEPUY SPINE [id number] / / NA Scrw Expedium Pa Ti 6x45mm - [id number] Implanted:Qt y: 2 on 09/25/2020 by Mango Munoz MD at [facility] Implant N/A: Spine Lumbar DEPUY SPINE [id number] / / NA Haim Expedium Prebnt Ti 5.5x40mm - [id number] Implanted:Qt y: 2 on 09/25/2020 by Mango Munoz MD at [facility] Implant N/A: Spine Lumbar DEPUY SPINE [id number] / / NA Scrw [address] - [id number] Implanted:Qt y: 4 on 09/25/2020 by Mango Munoz MD at [facility] Implant N/A: Spine Lumbar DEPUY SPINE [id number] / / NA Spacr Tpal Peek 64l5o76ni - [id number] Implanted:Qt y: 1 on 09/25/2020 by Mango Munoz MD at [facility] Implant N/A: Spine Lumbar DEPUY SYNTHES [id number] / / NA Insurance [address] [place], [place] [id number] [place] [address] MEDICARE ADVANTAGE [facility] MEDICARE ADVANTAGE PPO Advance Directives * CPR (Attempt to Resuscitate) (Latest Code Status on File) Date Activated Date Inactivated Comments 09/25/2020 1:28 PM 2020 4:27 PM Question Answer Comments Code Status (Patient has no pulse and is not breathing): CPR (Attempt to Resuscitate) Medical Interventions (Patie nt has pulse or is breathing): Full Care Teams Health Companion Relationship Specialty Start Date End Date Marcos Nava MD [address] [address] PCP - General Family Medicine 09/20/20
--- OUTSIDE RECORDS SUMMARY | 2025-10-18 10:05 | XMS_ITS ---
Laboratory report Created on: 2025 MASHA CABRERA : 1955 Sex: Female Author Organization Unknown PROBLEMS Problems List Code Description RESULTS Laboratory Orders Date Order Code Test 2023-12-16 [id number] OPIATES AND OXYC ODONE, MS, UR Laboratory Results Date LOINC Test Value Unit Reference Range Interpre tation 2023-12-16 8251-1 FPRCF 2023-12-16 70846-5 OPIATES P A 2023-12-16 3507-1 CODEINE NEG. 2023-12-16 3830-7 MORPHINE P A 2023-12-16 70583-7 MORPHINE CONF, MS, UR 292 NG/ML 2023-12-16 9834-3 HYDROMORPHONE NEG. 2023-12-16 78222-0 HYDROCODONE NEG. 2023-12-16 12451-2 OXYCODONE/OXYMORPH NEG.
--- OUTSIDE RECORDS SUMMARY | 2025-10-18 10:05 | XMS_ITS ---
Laboratory report Created on: 2025 MASHA CABRERA : 1955 Sex: Female Author Name AMY GONZALEZ Organization Unknown PROBLEMS Problems List Code Description M79.89 RESULTS Laboratory Orders Date Order Code Test 2024-02-24 [id number] CBC WITH DIFFERE NTIAL/PLATELET 2024-02-24 [id number] COMP. METABOLIC PANEL (14) 2024-02-24 [id number] ERYTHROCYTE SEDI MENTATION RATE 2024-02-24 [id number] C-REACTIVE PROTE IN, QUANT Laboratory Results Date LOINC Test Value Unit Reference Range Interpre tation 2024-02-24 6690-2 WBC 7.7 X10E3/UL 3.4-10.8 2024-02-24 789-8 RBC 4.83 X10E6/UL 3.77-5.28 2024-02-24 718-7 HEMOGLOBIN 13.2 G/DL 11.1-15.9 2024-02-24 4544-3 HEMATOCRIT 40 % 34.0-46.6 2024-02-24 787-2 MCV 83 FL 79-97 2024-02-24 785-6 MCH 27.3 PG 26.6-33.0 2024-02-24 786-4 MCHC 33 G/DL 31.5-35.7 2024-02-24 788-0 RDW 13.1 % 11.7-15.4 2024-02-24 777-3 PLATELETS 238 X10E3/UL 764-880 7916-04-30 770-8 NEUTROPHILS 58 % 2024-02-24 736-9 LYMPHS 32 % 2024-02-24 5905-5 MONOCYTES 7 % 2024-02-24 713-8 EOS 2 % 2024-02-24 706-2 BASOS 0 % 2024-02-24 751-8 NEUTROPHILS (ABSOLUTE) 4.5 X10E3/UL 1.4-7.0 2024-02-24 731-0 LYMPHS (ABSOLUTE) 2.5 X10E3/UL 0.7-3.1 2024-02-24 742-7 MONOCYTES(ABSOLUTE) .5 X10E3/UL 0.1-0.9 2024-02-24 711-2 EOS (ABSOLUTE) .2 X10E3/UL 0.0-0.4 2024-02-24 704-7 BASO (ABSOLUTE) 0 X10E3/UL 0.0-0.2 2024-02-24 46480-3 IMMATURE GRANULOCYTES 1 % 2024-02-24 12366-7 IMMATURE GRANS (ABS) .1 X10E3/UL 0.0-0.1 2024-02-24 2345-7 GLUCOSE 114 MG/DL 70-99 H 2024-02-24 3094-0 BUN 12 MG/DL 8-27 2024-02-24 2160-0 CREATININE .81 MG/DL 0.57-1.00 2024-02-24 92474-5 EGFR 79 ML/MIN/1.7 3 >59 2024-02-24 3097-3 BUN/CREATININE RATIO 15 12-28 2024-02-24 2951-2 SODIUM 140 MMOL/L 864-335 7779-04-30 2823-3 POTASSIUM 4.2 MMOL/L 3.5-5.2 2024-02-24 2075-0 CHLORIDE 101 MMOL/L 96-106 2024-02-24 2028-9 CARBON DIOXIDE, TOTAL 24 MMOL/L -29 2024-02-24 30859-3 CALCIUM 9.8 MG/DL 8.7-10.3 2024-02-24 2885-2 PROTEIN, TOTAL 6.6 G/DL 6.0-8.5 2024-02-24 1751-7 ALBUMIN 3.9 G/DL 3.9-4.9 2024-02-24 27029-5 GLOBULIN, TOTAL 2.7 G/DL 1.5-4.5 2024-02-24 1759-0 A/G RATIO 1.4 1.2-2.2 2024-02-24 1975-2 BILIRUBIN, TOTAL .4 MG/DL 0.0-1.2 2024-02-24 6768-6 ALKALINE PHOSPHATASE 93 IU/L 44-121 2024-02-24 1920-8 AST (SGOT) 23 IU/L 0-40 2024-02-24 1742-6 ALT (SGPT) 21 IU/L 0-32 2024-02-24 4537-7 ERYTHROCYTE SEDIMENTATION RATE 13 MM/HR 0-40 2024-02-241988-02 C-REACTIVE PROTE IN, QUANT 4 MG/L 0-10
--- OUTSIDE RECORDS SUMMARY | 2025-10-18 10:05 | XMS_ITS | Encounter Summary ---
Author Organization [facility] Address [address] [place] [address] Care Team Providers Care Executive Producer Name Role Phone Marcos Nava MD Primary Care Provider [phone] Reason for Visit * Reason Comments Discharge Encounter Details Date Type Department Care Team (Late st Contact Info) Description 10/03/2025 Documentation [facility] OUTPATIENT PHYSICAL THERAPY [address] [place] [phone] Malena Berman, PT [address] [place] [address] Discharge Social History Tobacco Use Types Packs/Day Years Used Date Smoking Tobacco: Former Cigarettes 2 07 27 982 1991 Smokeless Tobacco: Never Comments:STILL EXPOSED TO SE [place]D HAND SMOKE. Alcohol Use Standard Drinks/Week Comments [...] on file Sexual Orientation Not on file documented as of this encounter Discharge Summaries * Malena Berman, PT - 10/03/2025 11:57 AM EST Outpatient Physical Therapy Discharge Summary Patient Name: Shania Garibay : 1955 Today's Date: 10/03/2025 Visit Dx: ICD-10-CM ICD-9-CM 1. Lymphedema I89.0 457.1 OP PT Discharge Summary Date of Discharge: 10/03/25 Reason for Discharge: (patient planned to scheduled at lymphedema clinic closer to home due to transportation issues) Outcomes Achieved: (refer to last treatment note for status at d/c. Seen for initial eval and 1 followup visit) Discharge Destination: (transferring to another facility) Malena Berman, PT 10/03/2025 documented in this encounter Plan of Treatment Not on file documented as of this encounter Visit Diagnoses Diagnosis Lymphedema- Primary Other noninfectious lymphedema documented in this encounter Care Teams Executive Producer Relationship Specialty Start Date End Date Marcos Nava MD [address] [address] PCP - General Family Medicine 09/20/20 documented as of this encounter
--- OUTSIDE RECORDS SUMMARY | 2025-10-18 10:05 | XMS_ITS ---
Laboratory report Created on: 2025 MASHA CABRERA : 1955 Sex: Female Author Organization Unknown PROBLEMS Problems List Code Description RESULTS Laboratory Orders Date Order Code Test 2024-04-22 [id number] 1,25-DIHYDROXY,V ITAMIN D BY MS Laboratory Results Date LOINC Test Value Unit Reference Range Interpre tation 2024-04-22 33981-3 TOTAL 1,25-DIHYDROXY,VITAMIN D 55 PG/ML 2024-04-22 15377-4 1,25-DIHYDROXY, VITAMIN D-2 <10 PG/ML 2024-04-22 1649-3 1,25-DIHYDROXY, VITAMIN D-3 55 PG/ML
[2025-10-18] MEDS: ALBUTEROL 0.083% 2.5 MG/3 ML NEB IH (11:11)
--- NOTE | 2025-10-18 11:12 | PC.NURSE ---
PFT and 6 Minute walk test completed without incident. Albuterol 0.083% given via HHN, per written protocol, Pt tolerated tx well.
== END 2025-10-18 23:59 | disposition home or self-care (01) ==
LOC: RT 09:59
PROVIDERS: PCP Family Medicine; Visit Provider Internal Medicine Pulmonary Disease
DX: R06.09 Other forms of dyspnea (principal); R06.02 Shortness of breath
CPT/HCPCS: 94060; 94618; 94726; 94729